=== PATIENT | female | born 1950 | race Caucasian/White ===

== ENCOUNTER → 2016-08-04 | Outpatient (CLI) | payer OTHER ==
--- NOTE | 2016-08-05 13:56 | MM ---
Reason for exam: screening (asymptomatic). Last mammogram was performed 1 year ago. History: Family history of breast cancer in maternal aunt. Physical Findings: A clinical breast exam by your physician is recommended on an annual basis and results should be correlated with mammographic findings. MG 3D Screening Mammo W/Cad Bilateral CC and MLO view(s) were taken. Prior study comparison: August 01, 2015, bilateral MG 3d screening mammo w/cad. July 24, 2014, bilateral MG screening mammo w CAD. The breast tissue is heterogeneously dense. This may lower the sensitivity of mammography. No significant changes when compared with prior studies. ASSESSMENT: Benign, BI-RAD 2 RECOMMENDATION: Routine screening mammogram of both breasts in 1 year.
== END | disposition home or self-care (01) ==
LOC: RADMAMWWP 09:49
PROVIDERS: ATTEND Family Medicine
DX: Z12.31 Encounter for screening mammogram for malignant neoplasm of breast (principal)
CPT/HCPCS: 77063; G0202

== ENCOUNTER → 2017-07-19 | Outpatient (CLI) | payer OTHER, MEDICARE ==
--- NOTE | 2017-07-19 11:42 | CTL ---
EXAMINATION TYPE: CT Low Dose Lung DATE OF EXAM ORDERED: 07/19/2017 HISTORY: Long-term tobacco use. Lung cancer screening CT DLP: [address] CTDI: 3.1 mGy Automated exposure control for dose reduction was used. SCREENING VISIT: Initial study COMPARISON: None TECHNIQUE: Low dose computed tomography scan was performed through the chest at 1 mm thick sections a nd reconstructed images in the coronal plane at [address] DIAGNOSTIC QUALITY: Satisfactory FINDINGS: LUNG NODULES: None. LUNGS: COPD: Severity: Mild Fibrosis: Severity: Minimal Lymph nodes: No suspicious greater than 1 cm. Other findings: None BILATERAL PLEURAL SPACE: Effusion: None Calcification: None Thickening: None Pneumothorax: None HEART: Heart Size: Normal Coronary calcification: None Pericardial effusion: None OTHER FINDINGS: Upper abdomen: Small hiatal hernia is seen. Cholecystectomy clips are noted. Bony thorax: There is fairly moderate multilevel anterior and lateral spurring. Supraclavicular region: No suspicious findings. Other: Mild calcified plaque of aorta. IMPRESSION: No suspicious nodules seen. FOLLOW UP CT CHEST RECOMMENDATION: Annual low-dose lung screening CT CT LUNG RAD: Lung-Rad 1 Negative
== END ==
LOC: RADCTMAIN 10:48
PROVIDERS: ATTEND Family Medicine
DX: Z12.2 Encounter for screening for malignant neoplasm of respiratory organs (principal); Z87.891 Personal history of nicotine dependence

== ENCOUNTER → 2017-09-28 | Outpatient (CLI) | payer MEDICARE, OTHER ==
--- NOTE | 2017-09-28 13:26 | MM ---
Reason for exam: screening (asymptomatic). Last mammogram was performed 1 year and 2 months ago. History: Family history of breast cancer in maternal aunt. Physical Findings: A clinical breast exam by your physician is recommended on an annual basis and results should be correlated with mammographic findings. MG 3D Screening Mammo W/Cad Bilateral CC and MLO view(s) were taken. Prior study comparison: August 04, 2016, bilateral MG 3d screening mammo w/cad. August 01, 2015, bilateral MG 3d screening mammo w/cad. The breast tissue is heterogeneously dense. This may lower the sensitivity of mammography. There is chronic nodularity in the left breast. There is no discrete abnormality. ASSESSMENT: Negative, BI-RAD 1 RECOMMENDATION: Routine screening mammogram of both breasts in 1 year.
== END | disposition home or self-care (01) ==
LOC: RADMAMWWP 07:13
PROVIDERS: ATTEND Family Medicine
DX: Z12.31 Encounter for screening mammogram for malignant neoplasm of breast (principal)
CPT/HCPCS: 77063; 77067

== ENCOUNTER → 2018-11-16 | Outpatient (CLI) | payer MEDICARE, OTHER ==
--- NOTE | 2018-11-17 14:40 | MM ---
Reason for exam: screening (asymptomatic). Last mammogram was performed 1 year and 2 months ago. History: Family history of breast cancer in maternal aunt. Physical Findings: A clinical breast exam by your physician is recommended on an annual basis and results should be correlated with mammographic findings. MG 3D Screening Mammo W/Cad Bilateral CC and MLO view(s) were taken. Prior study comparison: September 28, 2017, bilateral MG 3d screening mammo w/cad. August 04, 2016, bilateral MG 3d screening mammo w/cad. The breast tissue is heterogeneously dense. This may lower the sensitivity of mammography. There is no discrete abnormality. ASSESSMENT: Negative, BI-RAD 1 RECOMMENDATION: Routine screening mammogram of both breasts in 1 year.
== END | disposition home or self-care (01) ==
LOC: RADMAMWWP 10:47
PROVIDERS: ATTEND Family Medicine
DX: Z12.31 Encounter for screening mammogram for malignant neoplasm of breast (principal)
CPT/HCPCS: 77063; 77067

== ENCOUNTER 2019-03-10 20:13 | Emergency (ER) | payer MEDICARE ==
[2019-03-10 20:18] VITALS: TEMP 97.4
[2019-03-10] MEDS ORDERED: METOCLOPRAMIDE 5 MG/ML 2 ML VIAL IVP STA (21:27)
[2019-03-10] MEDS ORDERED: diphenhydrAMINE 50 MG/ML 1 ML VIAL IVP STA (21:27)
[2019-03-10] MEDS ORDERED: KETOROLAC 30 MG/ML 1 ML VIAL IVP STA (21:27)
[2019-03-10] MEDS ORDERED: MORPHINE SULFATE 4 MG/ML SYRINGE IV STA (21:37)
[2019-03-10] MEDS ORDERED: MORPHINE SULFATE 4 MG/ML SYRINGE IM STA (21:48)
[2019-03-10] MEDS ORDERED: METOCLOPRAMIDE 5 MG/ML 2 ML VIAL IM STA (21:49)
[2019-03-10] MEDS ORDERED: diphenhydrAMINE 50 MG CAP PO STA (21:49)
[2019-03-10 22:46] VITALS: BP 130/68; PULSE 68; RESP 18
[2019-03-10] MEDS ORDERED: ACETAMINOPHEN TAB 325 MG TAB PO STA (22:47)
[2019-03-10] MEDS ORDERED: ONDANSETRON ODT 4 MG TAB PO STA (22:47)
--- NOTE | 2019-03-10 22:55 | ED ---
General Adult HPI - General Chief complaint: Eye Problems Stated complaint: Blurred Vision,Floaters Time Seen by Provider: 03/10/19 20:26 Source: patient, RN notes reviewed, old records reviewed Mode of arrival: ambulatory Limitations: no limitations - History of Present Illness Initial comments: 68-year-old female patient past history significant for hysterectomy, hyperlipidemia, tension headache disorder presents to ED for chief complaint of visual complaints in her right eye. Patient reports that yesterday she began to see some scattered flashing lights around the periphery of her right eye. This came and went. Patient reports that earlier today she began experiencing some floaters in her right eye. Patient then reports that approximately 2 hours prior to presenting to the emergency department she has sensation as if there were small specks of pepper going down her vision. Patient was seen today by her neurologist and received Botox injections for tension headache. Patient denies any change in vision or pain and I. Patient does report that she has a mild frontal lobe headache. Denies any other complaints. Systemic: Pt denies fatigue, fever/chills, rash. Pt denies weakness, night sweats, weight loss. Neuro: Pt denies syncope or pre-syncope. HEENT: Pt denies ocular discharge or irritation, otalgia, rhinorrhea, pharyngitis or notable lymphadenopathy. Cardiopulmonary: Pt denies chest pain, SOB, heart palpitations, dyspnea on exertion. Abdominal/GI: Pt denies abdominal pain, n/v/d. : Pt denies dysuria, burning w/ urination, frequency/urgency. Denies new onset urinary or bowel incontinence. MSK: Pt denies myalgia, loss of strength or function in extremities. Neuro: Pt denies new onset weakness, paresthesias. - Related Data Home Medications Medication Instructions Recorded Confirmed Cholecalciferol [Vitamin D3] 2,000 unit PO Q2D 09/07/14 09/11/14 Cholecalciferol [Vitamin D3] 4,000 unit PO Q2D 09/07/14 09/11/14 Citalopram Hydrobromide 40 mg PO PC-SUPPER 09/07/14 09/11/14 [Citalopram HBr] Levothyroxine Sodium [Synthroid] 100 mcg PO DAILY 09/07/14 09/11/14 Pravastatin Sodium 20 mg PO HS 09/07/14 09/11/14 Vitamin B Complex 1 each PO DAILY 09/07/14 09/11/14 Zolpidem Tartrate 10 mg PO HS PRN 09/07/14 09/11/14 Allergies Allergy/AdvReac Type Severity Reaction Status Date / Time Penicillins Allergy Unknown, Verified 09/07/14 14:10 POS ON ALLERGY TEST shrimp Allergy Rash/Hives Verified 03/10/19 20:18 Review of Systems ROS Statement: Those systems with pertinent positive or pertinent negative responses have been documented in the HPI. ROS Other: All systems not noted in ROS Statement are negative. Past Medical History Past Medical History: Hyperlipidemia, Thyroid Disorder History of Any Multi-Drug Resistant Organisms: None Reported Past Surgical History: Cholecystectomy, Hysterectomy, Orthopedic Surgery Additional Past Surgical History / Comment(s): PARTIAL THYROIDECTOMY. LT ROTATOR CUFF REPAIRED. Past Anesthesia/Blood Transfusion Reactions: Motion Sickness Smoking Status: Former smoker - Past Family History Mother Sister(s) Family Medical History: Cancer General Exam - General Exam Comments Initial Comments: Constitutional: NAD, AOX3, Pt has pleasant affect. HEENT: NC/AT, trachea midline, neck supple, no lymphadenopathy. Posterior pharynx non erythematous, without exudates. External ears appear normal, without discharge. Mucous membranes moist. Eyes PERRLA, EOM intact. There is no scleral icterus. No pallor noted. Intraocular pressure average of 15 bilaterally. Slit lamp exam did not display any hemorrhage or pathology. Cardiopulmonary: RRR, no murmurs, rubs or gallops, no JVD noted. Lungs CTAB in anterior and posterior grigsby. No peripheral edema. Abdominal exam: Abdomen soft and non-distended. Abdomen non-tender to palpation in all 4 quadrants. Bowel sounds active in LLQ. No hepatosplenomegaly. No ecchymosis Neuro: CN II-XII intact. No nuchal rigidity. No raccon eyes, no glynn sign, no hemotympanum. No cervical spinal tenderness. MSK: No posterior calf tenderness bilaterally, homans sign negative bilaterally. Posterior tibialis and radial pulse +2 bilaterally. Sensation intact in upper and lower extremities. Full active ROM in upper and lower extremities, 5/5 stregnth. Limitations: no limitations Course Vital Signs 03/10/19 03/10/19 20:15 22:45 Temperature 97.4 F L Pulse Rate 103 H 68 Respiratory 20 18 Rate Blood Pressure 142/84 130/68 O2 Sat by Pulse 98 97 Oximetry Medical Decision Making - Medical Decision Making 68-year-old female patient past history significant for hysterectomy, hyperlipidemia, tension headache disorder presents to ED for chief complaint of visual complaints in her right eye. Patient reports that yesterday she began to see some scattered flashing lights around the periphery of her right eye. This came and went. Patient reports that earlier today she began experiencing some floaters in her right eye. Patient then reports that approximately 2 hours prior to presenting to the emergency department she has sensation as if there were small specks of pepper going down her vision. Patient was seen today by her neurologist and received Botox injections for tension headache. Patient denies any change in vision or pain and I. Patient does report that she has a m ild frontal lobe headache. Denies any other complaints. Pt VSS, afebrile. Physical exam displayed: Eyes PERRLA, EOM intact. Intraocular pressure average of 15 bilaterally. Slit lamp exam did not display any hemorrhage or pathology. Ultrasound performed by Dr. Epstein did not display any retinal detachment. Patient was administered headache medications, reports the headache is much improved. Continues to not have any eye pain or any decreased visual acuity. Attempted to reach patient's machine i coremaker Dr. Colon were unsuccessful. Patient requesting discharge. Patient discharged will follow up with her previously established machine i coremaker tomorrow, if unable to follow-up patient given information for our staff machine i coremaker. Patient will return to ER if condition worsens. Case discussed with Dr. Estrada. Disposition Clinical Impression: Floaters, Headache Disposition: HOME SELF-CARE Condition: Stable Instructions (If sedation given, give patient instructions): Visual Floaters (ED) Additional Instructions: Follow-up with machine i coremaker tomorrow. Initially try to follow up with Previously established machine i coremaker Dr. Colon. If unable to follow up with him follow-up with Dr. Caal. Return to ER if condition worsens in any way. Is patient prescribed a controlled substance at d/c from ED?: No Referrals: Austen Garcia DO [Primary Care Provider] - 1-2 days Ana Caal MD [STAFF PHYSICIAN] - 1-2 days
== END 2019-03-10 23:00 | disposition home or self-care (01) ==
LOC: EC 20:13
DX: G44.209 Tension-type headache, unspecified, not intractable (principal); H43.391 Other vitreous opacities, right eye; E78.5 Hyperlipidemia, unspecified; E07.9 Disorder of thyroid, unspecified; Z79.899 Other long term (current) drug therapy; Z88.0 Allergy status to penicillin; Z91.013 Allergy to seafood; Z87.891 Personal history of nicotine dependence; Z90.89 Acquired absence of other organs
CPT/HCPCS: 99284; 96372 ×2; J2270; J2765

== ENCOUNTER → 2020-02-28 | Outpatient (CLI) | payer MEDICARE ==
--- NOTE | 2020-02-29 16:20 | BD ---
EXAMINATION TYPE: Axial Bone Density DATE OF EXAM: 02/28/2020 COMPARISON: NONE CLINICAL HISTORY: Height: 5 FT 7 IN Weight: 190 FRAX RISK QUESTIONS: Alcohol (3 or more units per day): NO Family History (Parent hip fracture): NO Glucocorticoids (More than 3mos): NO (Ex: prednisone, prednisolone, methylprednisolone, dexamethasone, and hydrocortisone). History of Fracture in Adulthood: YES Secondary Osteoporosis: 1. Type 1 Diabetes: NO 2. Hyperthyroidism: NO 3. Menopause before 45: UNSURE PART AGE 34 NO REAL SYMPTOMS 4. Malnutrition: NO 5. Chronic liver disease: NO Rheumatoid Arthritis: NO Current Tobacco Use: NO RISK FACTORS HISTORY OF: Family History of Osteoporosis: YES Active: YES Diet low in dairy products/other sources of calcium: NO Postmenopausal woman: PART AGE 34 Take estrogen and/or progesterone medications: NONE Lost more than 2 inches in height since high school: NO MEDICATIONS: Thyroid Medications: YES Which medication: LEVOTHYROXINE How Lon PLUS YEARS Additional Medications: LEVOTHYROXINE, PREVASTATIN, STRESS MEDS, PROZAC, Additional History: EXAM MEASUREMENTS: Bone mineral densitometry was performed using the KOEZY System. Bone mineral density as measured about the Lumbar spine is: ----- L1-L4(G/cm2): 1.200 T Score Values are as follows: ----- L2: 0.5 ----- L3: 0.3 ----- L4: 0.3 ----- L1-L4: 0.2 Bone mineral density has: INCREASED 1.1 % since study of: 2004 Bone mineral density about the R hip (g/cm2): 0.785 Bone mineral density about the L hip (g/cm2): 0.835 T Score values are as follows: -----R Neck: -1.8 -----L Neck: -1.5 -----R Total: -0.7 -----L Total: -0.6 Bone mineral density has: DECREASED -8.2 % since study of: 2004 IMPRESSION: Osteopenia (T Score between -2.5 and -1). There is slightly increased risk of fracture and the patient may be considered for treatment. Re-Screen 2-5 years. NOTE: T-SCORE=SD OF THE YOUNG ADULT MEAN.
--- NOTE | 2020-03-04 11:02 | MM ---
Reason for exam: screening (asymptomatic). Last mammogram was performed 1 year and 3 months ago. History: Family history of breast cancer in maternal aunt. Physical Findings: A clinical breast exam by your physician is recommended on an annual basis and results should be correlated with mammographic findings. MG 3D Screening Mammo W/Cad Bilateral CC and MLO view(s) were taken. XCCL view(s) were taken of the left breast. Prior study comparison: November 16, 2018, bilateral MG 3d screening mammo w/cad. September 28, 2017, bilateral MG 3d screening mammo w/cad. The breast tissue is heterogeneously dense. This may lower the sensitivity of mammography. No significant changes when compared with prior studies. ASSESSMENT: Benign, BI-RAD 2 RECOMMENDATION: Routine screening mammogram of both breasts in 1 year.
== END | disposition home or self-care (01) ==
LOC: RADMAMWWP 15:13
PROVIDERS: ATTEND Family Medicine
DX: Z12.31 Encounter for screening mammogram for malignant neoplasm of breast (principal); M85.80 Other specified disorders of bone density and structure, unspecified site
CPT/HCPCS: 77063; 77067; 77080

== ENCOUNTER 2021-12-11 13:07 | Inpatient (IN) | payer MEDICARE ==
[2021-12-11] MEDS ORDERED: ONDANSETRON 4 MG/2 ML VIAL IVP STA ×2 (14:16→18:51)
[2021-12-11] MEDS ORDERED: SODIUM CHLORIDE 0.9% 1,000 ML IV STA (14:16)
[2021-12-11] MEDS ORDERED: KETOROLAC 15 MG/ML 1 ML VIAL IVP STA (14:16)
[2021-12-11 14:46] LABS: Basophils % (A) 0 %; Eosinophils # (A) 0.2 k/uL (0-0.7); Eosinophils % (A) 2 %; HCT 40.5 % (34.0-46.0); HGB 13.3 gm/dL (11.4-16.0); Lymphocytes # (A) 1.6 k/uL (1.0-4.8); Lymphocytes % (A) 17 %; MCH 29.9 pg (25.0-35.0); MCV 90.7 fL (80.0-100.0); Mean Platelet Volume 8.2; Monocytes # (A) 0.7 k/uL (0-1.0); Monocytes % (A) 8 %; Neutrophils # (A) 6.5 k/uL (1.3-7.7); Neutrophils % (A) 71 %; Platelet Count 347 k/uL (150-450); RBC 4.46 m/uL (3.80-5.40); RDW 13.4 % (11.5-15.5); WBC 9.1 k/uL (3.8-10.6)
--- NOTE | 2021-12-11 15:07 | ED ---
Abdominal Pain HPI - General Chief Complaint: Abdominal Pain Stated Complaint: Constipation Time Seen by Provider: 12/11/21 14:04 Source: patient, RN notes reviewed Mode of arrival: ambulatory Limitations: no limitations - History of Present Illness Initial Comments: This is a 71-year-old female who presents to the emergency department for constipation. States that her last bowel movement was 9 weeks ago. She has associated abdominal pain and nausea. States that she feels very bloated and is now experiencing low back pain and feels like she can't take it anymore. She is a patient of Dr. Linder, clin asst, and states that she has been taking a prescription for constipation that she was provided. States that this is a powder she mixes with water but is not sure what it is called. She's being treated with this for IBS. States that she's never been constipated this long, it typically only lasts a week. Denies any fevers, chills, sore throat, cough, dyspnea, chest pain, palpitations, vomiting, diarrhea, or headaches. MD Complaint: abdominal pain Onset/Timin -: week(s) Location: diffuse Associated Symptoms: nausea, constipation - Related Data Home Medications Medication Instructions Recorded Confirmed Levothyroxine Sodium [Synthroid] 100 mcg PO DAILY 09/07/14 12/11/21 Vitamin B Complex 1 cap PO DAILY 09/07/14 12/11/21 Spironolactone [Aldactone] 100 mg PO DAILY 12/11/21 12/11/21 Venlafaxine HCl ER [Effexor Xr] 150 mg PO AC-LUNCH 12/11/21 12/11/21 Vitamin D3(Unknown) 1 tab PO DAILY 12/11/21 12/11/21 Allergies Allergy/AdvReac Type Severity Reaction Status Date / Time Penicillins Allergy Unknown, + Verified 12/11/21 16:16 allergy testing as a child shrimp Allergy Rash/Hives Verified 12/11/21 16:16 around mouth Review of Systems ROS Statement: Those systems with pertinent positive or pertinent negative responses have been documented in the HPI. ROS Other: All systems not noted in ROS Statement are negative. Past Medical History Past Medical History: Hyperlipidemia, Thyroid Disorder History of Any Multi-Drug Resistant Organisms: None Reported Past Surgical History: Cholecystectomy, Hysterectomy, Orthopedic Surgery Additional Past Surgical History / Comment(s): PARTIAL THYROIDECTOMY. LT ROTATOR CUFF REPAIRED. Past Anesthesia/Blood Transfusion Reactions: Motion Sickness Smoking Status: Never smoker Past Alcohol Use History: None Reported Past Drug Use History: None Reported - Past Family History Mother Sister(s) Family Medical History: Cancer General Exam Limitations: no limitations General appearance: alert, in no apparent distress Head exam: Present: atraumatic, normocephalic, normal inspection Respiratory exam: Present: normal lung sounds bilaterally. Absent: respiratory distress, wheezes, rales, rhonchi, stridor Cardiovascular Exam: Present: regular rate, normal rhythm, normal heart sounds. Absent: systolic murmur, diastolic murmur, rubs, gallop, clicks GI/Abdominal exam: Present: tenderness (Diffuse), hypoactive bowel sounds, other (Firmness throughout the abdomen) Neurological exam: Present: alert, oriented X3, CN II-XII intact Psychiatric exam: Present: normal affect, normal mood Skin exam: Present: warm, dry, intact, normal color. Absent: rash Course Vital Signs 12/11/21 12/11/21 13:36 16:36 Temperature 97.0 F L Pulse Rate 100 94 Respiratory 20 18 Rate Blood Pressure 135/81 131/75 O2 Sat by Pulse 96 97 Oximetry Medical Decision Making - Medical Decision Making This is a 71-year-old female who presents to the emergency department for constipation. Patient has a critical calcium level of 14.7. CT scan of the ab domen and pelvis was obtained, revealing a 15.8 cm conglomerate mass in the retroperitoneal space encasing the aorta. This also displaces the IVC and other retroperitoneal vessels. Patient given 400 mg of calcitonin. The concerns at this point are that the hypercalcemia is related to hypercalcemia of malignancy or sarcoidosis with relation to the conglomerate mass. PTH is pending and her thyroid studies are otherwise within normal limits. Patient will be admitted to medicine for management of the hypercalcemia and additional testing of the conglomerate mass. Nephrology consulted for hypercalcemia per the admitting team's request. Interventional radiology and hematology/oncology consulted per the recommendation of ED attending. Denies any fevers, chills, sore throat, cough, dyspnea, chest pain, palpitations, abdominal pain, nausea, vomiting, diarrhea, back pain, or headac hes. - Lab Data Result diagrams: 12/11/21 14:33 12/11/21 14:33 Lab Results 12/11/21 12/11/21 12/11/21 Range/Units 14:33 14:33 14:40 WBC 9.1 (3.8-10.6) k/uL RBC 4.46 (3.80-5.40) m/uL Hgb 13.3 (11.4-16.0) gm/dL Hct 40.5 (34.0-46.0) % MCV 90.7 (80.0-100.0) fL MCH 29.9 (25.0-35.0) pg MCHC 33.0 (31.0-37.0) g/dL RDW 13.4 (11.5-15.5) % Plt Count 347 (150-450) k/uL MPV 8.2 Neutrophils % 71 % Lymphocytes % 17 % Monocytes % 8 % Eosinophils % 2 % Basophils % 0 % Neutrophils # 6.5 (1.3-7.7) k/uL Lymphocytes # 1.6 (1.0-4.8) k/uL Monocytes # 0.7 (0-1.0) k/uL Eosinophils # 0.2 (0-0.7) k/uL Basophils # 0.0 (0-0.2) k/uL Sodium 138 (137-145) mmol/L Potassium 4.7 (3.5-5.1) mmol/L Chloride 98 (98-107) mmol/L Carbon Dioxide 29 (22-30) mmol/L Anion Gap 11 mmol/L BUN 32 H (7-17) mg/dL Creatinine 1.68 H (0.52-1.04) mg/dL Est GFR (CKD-EPI)AfAm 35 (>60 ml/min/1.73 sqM) Est GFR (CKD-EPI)NonAf 31 (>60 ml/min/1.73 sqM) Glucose 89 (74-99) mg/dL Calcium 14.7 H* (8.4-10.2) mg/dL Ionized Calcium Arielle (4.5-5.3) mg/dL Phosphorus (2.5-4.5) mg/dL Magnesium (1.6-2.3) mg/dL Total Bilirubin 1.0 (0.2-1.3) mg/dL AST 41 H (14-36) U/L ALT 63 H (4-34) U/L Alkaline Phosphatase 120 (38-126) U/L Total Protein 6.9 (6.3-8.2) g/dL Albumin 4.5 (3.5-5.0) g/dL Amylase 71 (30-110) U/L Lipase 233 (23-300) U/L TSH 1.080 (0.465-4.680) mIU/L Urine Color Yellow Urine Appearance Cloudy H (Clear) Urine pH 5.0 (5.0-8.0) Ur Specific [place] 1.018 (1.001-1.035) Urine Protein Trace H (Negative) Urine Glucose (UA) Negative (Negative) Urine Ketones Trace H (Negative) Urine Blood Negative (Negative) Urine Nitrite Negative (Negative) Urine Bilirubin Negative (Negative) Urine Urobilinogen <2.0 (<2.0) mg/dL Ur Leukocyte Esterase Negative (Negative) Urine RBC 2 (0-5) /hpf Urine WBC 5 (0-5) /hpf Ur Squamous Epith Cells 1 (0-4) /hpf Calcium Oxalate Crystal Rare H (None) /hpf Urine Bacteria Rare H (None) /hpf Hyaline Casts 1 (0-2) /lpf Urine Mucus Rare H (None) /hpf 12/11/21 Range/Units 15:53 WBC (3.8-10.6) k/uL RBC (3.80-5.40) m/uL Hgb (11.4-16.0) gm/dL Hct (34.0-46.0) % MCV (80.0-100.0) fL MCH (25.0-35.0) pg MCHC (31.0-37.0) g/dL RDW (11.5-15.5) % Plt Count (150-450) k/uL MPV Neutrophils % % Lymphocytes % % Monocytes % % Eosinophils % % Basophils % % Neutrophils # (1.3-7.7) k/uL Lymphocytes # (1.0-4.8) k/uL Monocytes # (0-1.0) k/uL Eosinophils # (0-0.7) k/uL Basophils # (0-0.2) k/uL Sodium (137-145) mmol/L Potassium (3.5-5.1) mmol/L Chloride (98-107) mmol/L Carbon Dioxide (22-30) mmol/L Anion Gap mmol/L BUN (7-17) mg/dL Creatinine (0.52-1.04) mg/dL Est GFR (CKD-EPI)AfAm (>60 ml/min/1.73 sqM) Est GFR (CKD-EPI)NonAf (>60 ml/min/1.73 sqM) Glucose (74-99) mg/dL Calcium (8.4-10.2) mg/dL Ionized Calcium Arielle 7.9 H* (4.5-5.3) mg/dL Phosphorus 4.1 (2.5-4.5) mg/dL Magnesium 1.8 (1.6-2.3) mg/dL Total Bilirubin (0.2-1.3) mg/dL AST (14-36) U/L ALT (4-34) U/L Alkaline Phosphatase (38-126) U/L Total Protein (6.3-8.2) g/dL Albumin (3.5-5.0) g/dL Amylase (30-110) U/L Lipase (23-300) U/L TSH (0.465-4.680) mIU/L Urine Color Urine Appearance (Clear) Urine pH (5.0-8.0) Ur Specific [place] (1.001-1.035) Urine Protein (Negative) Urine Glucose (UA) (Negative) Urine Ketones (Negative) Urine Blood (Negative) Urine Nitrite (Negative) Urine Bilirubin (Negative) Urine Urobilinogen (<2.0) mg/dL Ur Leukocyte Esterase (Negative) Urine RBC (0-5) /hpf Urine WBC (0-5) /hpf Ur Squamous Epith Cells (0-4) /hpf Calcium Oxalate Crystal (None) /hpf Urine Bacteria (None) /hpf Hyaline Casts (0-2) /lpf Urine Mucus (None) /hpf - EKG Data EKG Comments: Sinus rhythm. Ventricular rate 94 bpm, NM interval 151 ms, QRS duration 87 ms, QTC 375 ms. - Radiology Data Radiology results: report reviewed, image reviewed Disposition Clinical Impression: Constipation, Hypercalcemia, Retroperitoneal mass Disposition: ADMITTED IP TO THIS HOSP
[2021-12-11 15:09] LABS: ALT 63 U/L (4-34); AST 41 U/L (14-36); African American GFR (CKD) 35 (>60 ml/min/1.73 sqM); Albumin 4.5 g/dL (3.5-5.0); Alkaline Phosphatase 120 U/L (38-126); Amylase 71 U/L (30-110); Anion Gap 11 mmol/L; Blood Urea Nitrogen 32 mg/dL (7-17); Carbon Dioxide 29 mmol/L (22-30); Chloride 98 mmol/L (98-107); Glucose 89 mg/dL (74-99); Lipase 233 U/L (23-300); Non-African American GFR(CKD) 31 (>60 ml/min/1.73 sqM); Potassium 4.7 mmol/L (3.5-5.1); Sodium 138 mmol/L (137-145); Total Protein 6.9 g/dL (6.3-8.2)
[2021-12-11 15:21] LABS: Appearance,Urine Cloudy (Clear); Bacteria,Urine Rare /hpf; Bilirubin,Urine Negative (Negative); Blood,Urine Negative (Negative); Calcium Oxalate Crystals,Urine Rare /hpf; Color,Urine Yellow; Glucose,Urine (UA) Negative (Negative); Hyaline Casts,Urine 1 /lpf (0-2); Ketones,Urine Trace (Negative); Leukocyte Esterase,Urine Negative (Negative); Mucus,Urine Rare /hpf; Nitrite,Urine Negative (Negative); Protein,Urine Trace (Negative); RBC,Urine 2 /hpf (0-5); Specific Gravity,Urine 1.018 (1.001-1.035); Squamous Epithelial Cell,Urine 1 /hpf (0-4); Urobilinogen,Urine <2.0 mg/dL (<2.0); WBC,Urine 5 /hpf (0-5)
[2021-12-11 15:21] LABS: Calcium 14.7 mg/dL (8.4-10.2)
[2021-12-11] MEDS ORDERED: CALCITONIN INJ 200 UNIT/ML (MDV) VIAL IM ONE (16:00)
[2021-12-11 16:14] LABS: Magnesium 1.8 mg/dL (1.6-2.3); Phosphorus 4.1 mg/dL (2.5-4.5)
--- NOTE | 2021-12-11 16:21 | CT ---
EXAMINATION TYPE: CT abdomen pelvis wo con CT DLP: 562.7 mGycm, Automated exposure control for dose reduction was used. DATE OF EXAM: 12/11/2021 4:04 PM COMPARISON: CT chest 07/19/2017. CLINICAL INDICATION:Female, 71 years old with history of abdominal pain, bloating; Abdominal pain, bl oating, constipation. TECHNIQUE: Axial CT of the abdomen and pelvis. Sagittal and coronal reformats were created on a [employer] workstation. Contrast used: None Oral contrast used: without Oral Contrast FINDINGS: LOWER CHEST: Unremarkable ABDOMEN LIVER: Unremarkable GALLBLADDER AND BILE DUCTS: The gallbladder is surgically absent. PANCREAS: Unremarkable. SPLEEN: Unremarkable. ADRENAL GLANDS: Unremarkable. KIDNEYS AND URETERS: No evidence of hydronephrosis or renal calculus. Suspected left upper pole renal cyst. PELVIS BLADDER: Unremarkable REPRODUCTIVE: Unremarkable. ABDOMEN & PELVIS STOMACH AND BOWEL: No evidence of bowel obstruction. PERITONEUM: A retroperitoneal conglomerate mass extending at the aortic hiatus into the abdomen and r etroperitoneum measuring 15.8 x 9.4 x 15.5 cm this encases the aorta and displaces anteriorly. Additi onally this also displaces the IVC and other retroperitoneal vessels including the renal vessels bila terally. Extends up into the intrathoracic mediastinum adjacent to the aorta. VASCULATURE: No evidence of aortic aneurysm. Scattered atherosclerosis of the arterial vasculature. MUSCULOSKELETAL: No acute osseous abnormalities, multilevel disc degeneration changes seen throughout the spine. Multilevel disc bulging most proximal at L2-L3. LYMPH NODES: Large conglomerate mass as described above. 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 Cor relate for lymphoma versus other etiologies. Tissue sampling recommended.
[2021-12-11] MEDS ORDERED: ACETAMINOPHEN TAB 325 MG TAB PO PRN (16:53)
[2021-12-11] MEDS ORDERED: NALOXONE 0.4 MG/ML 1 ML VIAL IV PRN (16:53)
[2021-12-11 17:18] LABS: Ionized Calcium 7.9 mg/dL (4.5-5.3)
[2021-12-11] MEDS: ONDANSETRON 4 MG/2 ML VIAL IVP PRN (22:02)
[2021-12-12] MEDS: LEVOTHYROXINE 100 MCG TAB PO SCH (05:55)
[2021-12-12] MEDS ORDERED: SODIUM CHLORIDE 0.9% 250 ML with PAMIDRONATE 60 MG IV ONE ×4 (08:26→10:00)
[2021-12-12] MEDS ORDERED: NON FORMULARY DRUG (Vitamin B Complex [Vitamin B Complex] 1 EACH Capsule) PO SCH (09:00)
[2021-12-12] MEDS: SPIRONOLACTONE 25 MG TAB PO SCH (09:35)
[2021-12-12] MEDS: SODIUM CHLORIDE 0.9% 1,000 ML IV SCH ×3 (09:36→21:53)
[2021-12-12] MEDS: HYDROcodone/APAP 5-325MG 1 EACH TAB PO PRN ×2 (10:10→20:02)
[2021-12-12] MEDS: ONDANSETRON 4 MG/2 ML VIAL IVP PRN ×2 (10:11→20:02)
[2021-12-12 10:26] LABS: Basophils % (A) 0 %; Eosinophils # (A) 0.1 k/uL (0-0.7); Eosinophils % (A) 2 %; HCT 37.3 % (34.0-46.0); Lymphocytes # (A) 1.2 k/uL (1.0-4.8); Lymphocytes % (A) 14 %; MCHC 32.2 g/dL (31.0-37.0); Mean Platelet Volume 8.5; Monocytes # (A) 0.6 k/uL (0-1.0); Monocytes % (A) 7 %; Neutrophils # (A) 6.3 k/uL (1.3-7.7); Neutrophils % (A) 75 %; Platelet Count 304 k/uL (150-450); RBC 4.01 m/uL (3.80-5.40); RDW 13.4 % (11.5-15.5); WBC 8.4 k/uL (3.8-10.6)
[2021-12-12 10:28] LABS: Prothrombin Time 10.8 sec (9.0-12.0)
[2021-12-12 10:33] LABS: ALT 56 U/L (4-34); AST 38 U/L (14-36); African American GFR (CKD) 34 (>60 ml/min/1.73 sqM); Albumin 3.9 g/dL (3.5-5.0); Albumin/Globulin Ratio 1.6; Alkaline Phosphatase 111 U/L (38-126); Anion Gap 13 mmol/L; Blood Urea Nitrogen 35 mg/dL (7-17); Calcium 12.1 mg/dL (8.4-10.2); Carbon Dioxide 26 mmol/L (22-30); Chloride 100 mmol/L (98-107); Globulin 2.4 g/dL; Glucose 87 mg/dL (74-99); LDH 368 U/L (313-618); Non-African American GFR(CKD) 29 (>60 ml/min/1.73 sqM); Potassium 4.4 mmol/L (3.5-5.1); Sodium 139 mmol/L (137-145); Total Bilirubin 0.9 mg/dL (0.2-1.3); Total Protein 6.3 g/dL (6.3-8.2)
[2021-12-12] MEDS ORDERED: diphenhydrAMINE 50 MG/ML 1 ML VIAL IVP STA (10:34)
[2021-12-12 11:22] LABS: Erythrocyte Sedimentation Rate 20 mm/hr (0-20)
--- NOTE | 2021-12-12 11:42 | P.PCN ---
Date of Procedure: 12/12/21 Preoperative Diagnosis: retroperitoneal mass Postoperative Diagnosis: same Procedure(s) Performed: core bx Anesthesia: local Estimated Blood Loss (ml): 5 Pathology: other (to histo tech) Condition: stable Disposition: no change Operative Findings: 2 x 18 ga core through 17 ga guide
--- NOTE | 2021-12-12 12:09 | CT ---
EXAMINATION TYPE: CT biopsy abdomen percutaneous DATE OF EXAM: 12/12/2021 HISTORY: Retroperitoneal mass COMPARISON: CT 12/11/2021 Maximal barrier technique was utilized, hand hygiene obtained with soap and water. The skin overlyin g a suitable path to the retroperitoneal mass was localized using CT and the overlying skin was prepp ed and draped. Lidocaine used for local anesthesia. A skin alan made with a scalpel. Using CT guid ance, access was gained to the lesion with a 18-gauge core needle through a 17-gauge guide. Core spe cimen submitted to cytology. 2 pass(es) performed in all. Following the procedure no immediate comp lications. The patient is discharged in stable condition. Hemostasis achieved. IMPRESSION: SUCCESSFUL CT GUIDED CORE BIOPSY of retroperitoneal mass. PATHOLOGY PENDING. THIS PROCEDURE WAS PER FORMED BY THE UNDERSIGNED.
--- NOTE | 2021-12-12 13:13 | P.NPCON ---
History of Present Illness - History of Present Illness Patient is a 71-year-old female who is admitted to the hospital with complaints of abdominal pain. She has had chronic constipation. Patient follows with Dr. Gómez from GI. Patient denies any previous history of hypercalcemia. She was noted to have a serum calcium of 14.7. No history of excessive intake of Tums Abdominal CT shows large mass in the retroperitoneum measuring about 15.8 cm. A biopsy has been ordered. Review of Systems As per HPI Past Medical History Past Medical History: Hyperlipidemia, Thyroid Disorder History of Any Multi-Drug Resistant Organisms: None Reported Past Surgical History: Cholecystectomy, Hysterectomy, Orthopedic Surgery Additional Past Surgical History / Comment(s): PARTIAL THYROIDECTOMY. LT ROTATOR CUFF REPAIRED. Past Anesthesia/Blood Transfusion Reactions: Motion Sickness Smoking Status: Never smoker Past Alcohol Use History: None Reported Past Drug Use History: None Reported - Past Family History Mother Sister(s) Family Medical History: Cancer Medications and Allergies Home Medications Medication Instructions Recorded Confirmed Type Levothyroxine Sodium [Synthroid] 100 mcg PO DAILY 09/07/14 12/11/21 History Vitamin B Complex 1 cap PO DAILY 09/07/14 12/11/21 History Spironolactone [Aldactone] 100 mg PO DAILY 12/11/21 12/11/21 History Venlafaxine HCl ER [Effexor Xr] 150 mg PO AC-LUNCH 12/11/21 12/11/21 History Vitamin D3(Unknown) 1 tab PO DAILY 12/11/21 12/11/21 History Allergies Allergy/AdvReac Type Severity Reaction Status Date / Time Penicillins Allergy Unknown, + Verified 12/11/21 16:16 allergy testing as a child shrimp Allergy Rash/Hives Verified 12/11/21 16:16 around mouth Physical Exam Vitals: Vital Signs Temp Pulse Pulse Resp BP BP Pulse Ox 12/12/21 11:35 90 16 135/79 97 12/12/21 11:22 92 16 137/83 99 12/12/21 11:10 94 16 133/76 97 12/12/21 05:08 97.8 F 100 16 120/69 95 12/11/21 22:00 98.1 F 94 16 146/79 93 L 12/11/21 18:41 94 18 132/79 96 12/11/21 16:36 94 18 131/75 97 12/11/21 13:36 97.0 F L 100 20 135/81 96 Intake and Output 12/11/21 12/12/21 12/12/21 22:59 06:59 14:59 Intake Total 100 Balance 100 Intake: Oral 100 Other: Weight 73.028 kg Awake, comfortable, not in any acute distress Examination of the heart S1 and S2 Examination lungs bilateral breath sounds are heard Abdomen is soft nontender Examination lower extremity shows no significant edema HERBOLOGIST exam grossly intact Results - Lab Results Most recent lab results Calcium 12.1 mg/dL (8.4-10.2) H 12/12/21 09:58 Phosphorus 4.1 mg/dL (2.5-4.5) 12/11/21 15:53 Magnesium 1.8 mg/dL (1.6-2.3) 12/11/21 15:53 12/12/21 09:58 12/12/21 09:58 Assessment and Plan Assessment: 1. Hypercalcemia associated with underlying malignancy. PTH is appropriately low. Check one 25-hydroxy vitamin D level as this may be underlying lymphoma. Patient is status post pamidronate. Serum calcium has decreased to 12.1 mg/dL. 2. Acute kidney injury associated with hypercalcemia and hypovolemia. Mainta ined on IV fluids. UA appears benign. No evidence of obstruction on CAT scan 3. Large intra-abdominal retroperitoneal mass currently undergoing workup. 4. Hypothyroidism maintained on supplementation Plan: Continue with normal saline Check one 25-hydroxy vitamin D level and 25-hydroxy vitamin D. Repeat labs in a.m. Avoid any other nephrotoxic agents Workup as per oncology Thank you for the consultation. We will continue to follow the patient with you during her hospitalization
[2021-12-12] MEDS: VENLAFAXINE HCL ER 150 MG CAP PO SCH (13:26)
[2021-12-12] MEDS: LACTULOSE 20 GM/30 ML CUP PO SCH ×3 (13:26→21:53)
[2021-12-12] MEDS: DOCUSATE 100 MG CAP PO SCH ×2 (13:26→20:02)
[2021-12-12 15:18] LABS: Hepatitis A Antibody IgM Nonreactive (Nonreactive); Hepatitis B Core IgM Nonreactive (Nonreactive); Hepatitis B Surface Antigen Nonreactive (Nonreactive); Hepatitis C IgG Antibody Nonreactive (Nonreactive)
[2021-12-12 15:28] VITALS: BMI 25.2
--- NOTE | 2021-12-12 16:13 | P.CONS ---
History of Present Illness - Reason for Consult Consult date: 12/12/21 Large Retroperitoneal mass - Chief Complaint Abdominal Pain - History of Present Illness Mrs. Cheng is a 71 year old female presenting with abdominal pain, CT scan on admission revealed a large retroperitoneal mass 15.8cm. This am we have discussed with IR regarding biopsy of mass as well as, increased creatinine. Biopsy benefit outweighs risk and likely resulting in worsening renal function t herefore will hydrate prir and post biopsy with contrast guided CT Review of Systems All systems: negative Constitutional: Reports as per HPI Past Medical History Past Medical History: Hyperlipidemia, Thyroid Disorder History of Any Multi-Drug Resistant Organisms: None Reported Past Surgical History: Cholecystectomy, Hysterectomy, Orthopedic Surgery Additional Past Surgical History / Comment(s): PARTIAL THYROIDECTOMY. LT ROTATOR CUFF REPAIRED. Past Anesthesia/Blood Transfusion Reactions: Motion Sickness Smoking Status: Never smoker Past Alcohol Use History: None Reported Past Drug Use History: None Reported - Past Family History Mother Sister(s) Family Medical History: Cancer Medications and Allergies Home Medications Medication Instructions Recorded Confirmed Type Levothyroxine Sodium [Synthroid] 100 mcg PO DAILY 09/07/14 12/11/21 History Vitamin B Complex 1 cap PO DAILY 09/07/14 12/11/21 History Spironolactone [Aldactone] 100 mg PO DAILY 12/11/21 12/11/21 History Venlafaxine HCl ER [Effexor Xr] 150 mg PO AC-LUNCH 12/11/21 12/11/21 History Vitamin D3(Unknown) 1 tab PO DAILY 12/11/21 12/11/21 History Allergies Allergy/AdvReac Type Severity Reaction Status Date / Time Penicillins Allergy Unknown, + Verified 12/11/21 16:16 allergy testing as a child shrimp Allergy Rash/Hives Verified 12/11/21 16:16 around mouth Physical Exam Vitals: Vital Signs Temp Pulse Pulse Resp BP BP Pulse Ox 12/12/21 11:35 90 16 135/79 97 12/12/21 11:22 92 16 137/83 99 12/12/21 11:10 94 16 133/76 97 12/12/21 05:08 97.8 F 100 16 120/69 95 12/11/21 22:00 98.1 F 94 16 146/79 93 L 12/11/21 18:41 94 18 132/79 96 12/11/21 16:36 94 18 131/75 97 12/11/21 13:36 97.0 F L 100 20 135/81 96 Intake and Output 12/11/21 12/12/21 12/12/21 22:59 06:59 14:59 Intake Total 100 Balance 100 Intake: Oral 100 Other: Weight 73.028 kg - Constitutional General appearance: cooperative - EENT Eyes: EOMI ENT: NA/AT - Neck Neck: normal ROM - Respiratory Respiratory: bilateral: diminished - Cardiovascular Rhythm: regularly irregular - Gastrointestinal General gastrointestinal: tenderness - Integumentary Integumentary: pale - Psychiatric Psychiatric: A&O x's 3, appropriate affect Results CBC & Chem 7: 12/12/21 09:58 12/12/21 09:58 Labs: Abnormal Lab Results - Last 24 Hours (Table) 12/11/21 12/11/21 12/11/21 Range/Units 14:33 14:40 15:33 BUN 32 H (7-17) mg/dL Creatinine 1.68 H (0.52-1.04) mg/dL Uric Acid (3.7-7.4) mg/dL Calcium 14.7 H* (8.4-10.2) mg/dL Ionized Calcium Arielle (4.5-5.3) mg/dL AST 41 H (14-36) U/L ALT 63 H (4-34) U/L C-Reactive Protein 1.1 H (<1.0) mg/dL Urine Appearance Cloudy H (Clear) Urine Protein Trace H (Negative) Urine Ketones Trace H (Negative) Calcium Oxalate Crystal Rare H (None) /hpf Urine Bacteria Rare H (None) /hpf Urine Mucus Rare H (None) /hpf 12/11/21 12/12/21 Range/Units 15:53 09:58 BUN 35 H (7-17) mg/dL Creatinine 1.76 H (0.52-1.04) mg/dL Uric Acid 8.0 H (3.7-7.4) mg/dL Calcium 12.1 H (8.4-10.2) mg/dL Ionized Calcium Arielle 7.9 H* (4.5-5.3) mg/dL AST 38 H (14-36) U/L ALT 56 H (4-34) U/L C-Reactive Protein (<1.0) mg/dL Urine Appearance (Clear) Urine Protein (Negative) Urine Ketones (Negative) Calcium Oxalate Crystal (None) /hpf Urine Bacteria (None) /hpf Urine Mucus (None) /hpf CT scan - abdomen: report reviewed Assessment and Plan Plan: This is a 71-year-old female who presented to the emergency department for constipation and abdominal pain. Per patient >9 weeks ago was last time her bowels moved. Admitted to nausea. CT scan revealed large retroperitoneal mass 15.8cm. She is now status post CT guided biopsy by IR. Large Abdominal Mass: -Status post Biopsy - Await Results for further recommendations Hypercalcemia - - Status post Aredia Acute Renal Insufficiency: - Continue hydration - Check TLS Dr. Brown: I have complete the full history and physical and developed the above impression and plan, agree with dictation, dictated as a scribe Ms. Cheng is having abdominal distention, constipation, and nausea found to have hypercalcemia, BETH, and large retroperitoneal mass measuring 15 cm. She has been started on aggressive IVF hydration and pamidronate in addition to calcitonin given in the ED. She underwent IR guided biopsy of the mass today. LDH is within normal limits, which makes aggressive lymphoma less likely and potentially less responsive to high dose IV steroids. We will follow up results of biopsy will continuing hydration and additional treatment of hypercalcemia.
--- NOTE | 2021-12-13 00:32 | HP ---
HISTORY AND PHYSICAL CHIEF COMPLAINT: Hypercalcemia. HISTORY OF PRESENT ILLNESS: This is a 71-year-old woman with a past medical history of hyperlipidemia, thyroid disorder, being followed by Dr. Austen Garcia. The patient is having constipation for the last several weeks. The patient came to [facility]. The patient was found to have severe hypercalcemia with a calcium of 14.7. The patient on further evaluation also showed evidence of retroperitoneal tumor and the patient is being admitted for further evaluation and treatment. Hematology/Oncology evaluation progressed and biopsies also being planned at this time. There is no history of any fever, rigors, or chills at this time. PAST MEDICAL HISTORY: Hyperlipidemia, thyroid disorder. MEDICATIONS: Home medications reviewed include vitamin D3, doses and rest of medications noted. ALLERGIES: Penicillin. FAMILY HISTORY: Cancer. SOCIAL HISTORY: No history of smoking, or alcohol intake. REVIEW OF SYSTEMS: A 14-point review of systems is negative except as mentioned earlier. PHYSICAL EXAMINATION: VITAL SIGNS: Pulse is 94, blood pressure 133/76, respirations 16. HEENT: Conjunctivae normal. NECK: No JVD. CARDIOVASCULAR: S1 and S2. RESPIRATIONS: Breath sounds diminished at the bases. A few scattered rhonchi and crackles. ABDOMEN: Soft. Minimal tenderness in the left lower quadrant. Minimal distention also present. LEGS: No edema. No cyanosis. NERVOUS SYSTEM: No focal deficits. JOINTS: No active deforming arthropathy. LABS: At this time, CBC within normal limits. Repeat calcium is 12.1. ASSESSMENT: 1. Acute hypercalcemia. 2. Retroperitoneal tumor, rule out lymphoma. 3. Acute renal failure. 4. Hyperlipidemia. 5. Multiple medical issues. RECOMMENDATIONS AND DISCUSSION: This is a 71-year-old woman, who presented with multiple complex medical issues. At this time, I recommend to continue current medications, symptomatic treatment. Otherwise, pain management. The patient is on IV fluids. We will repeat calcium and the patient is given Aredia and further recommendations to follow. Nephrology also has been consulted. We will proceed with retroperitoneal mass biopsy and further recommendations to follow. See orders for details. We will hold the vitamin D. MMODL / IJN: [id number] /
[2021-12-13] MEDS: ONDANSETRON 4 MG/2 ML VIAL IVP PRN ×2 (03:28→17:19)
[2021-12-13] MEDS: DOCUSATE 100 MG CAP PO SCH ×2 (05:46→19:15)
[2021-12-13] MEDS: LACTULOSE 20 GM/30 ML CUP PO SCH ×4 (05:47→19:15)
[2021-12-13] MEDS: LEVOTHYROXINE 100 MCG TAB PO SCH (05:49)
[2021-12-13] MEDS: SODIUM CHLORIDE 0.9% 1,000 ML IV SCH ×3 (05:49→18:15)
[2021-12-13] MEDS: SPIRONOLACTONE 25 MG TAB PO SCH (08:55)
[2021-12-13 09:20] LABS: Basophils # (A) 0 X 10*3/uL (0.00-0.10); Basophils % (A) 0 %; Eosinophils # (A) 0.19 X 10*3/uL (0.04-0.35); Eosinophils % (A) 2.2 %; HCT 33.2 % (37.2-46.3); Immature Grans, Automated 0.3 %; Lymphocytes # (A) 0.79 X 10*3/uL (0.90-5.00); MCH 30.3 pg (27.0-32.0); MCHC 33.1 g/dL (32.0-37.0); MCV 91.5 fL (80.0-97.0); Mean Platelet Volume 10.6 fL (9.5-12.2); Monocytes # (A) 0.78 X 10*3/uL (0.20-1.00); Monocytes % (A) 8.9 %; NRBC Per 100 WBC 0 /100 WBCS (0.0-0.0); Neutrophils % (A) 79.6 %; Platelet Count 272 X 10*3/uL (140-440); RBC 3.63 X 10*6/uL (4.10-5.20); RDW 13.3 % (11.5-14.5); WBC 8.79 X 10*3/uL (4.50-10.00)
[2021-12-13 09:29] LABS: African American GFR (CKD) 40.5 (60.0-200.0); Albumin 3.6 g/dL (3.8-4.9); Albumin/Globulin Ratio 1.69 (1.60-3.17); Anion Gap 12.1 mmol/L (10.00-18.00); BUN/Creat Ratio 18.48 Ratio (12.00-20.00); Blood Urea Nitrogen 27.9 mg/dL (9.0-27.0); Calcium 11.2 mg/dL (8.7-10.3); Carbon Dioxide 24.6 mmol/L (20.0-27.5); Globulin 2.1 g/dL (1.6-3.3); Magnesium 1.8 mg/dL (1.5-2.4); Non-African American GFR(CKD) 34.9 (60.0-200.0); Phosphorus 2.6 mg/dL (2.4-5.1); Potassium 4.4 mmol/L (3.5-5.5); Total Bilirubin 0.5 mg/dL (0.30-1.20); Total Protein 5.7 g/dL (6.2-8.2); Uric Acid 7.1 mg/dL (2.9-7.7)
--- NOTE | 2021-12-13 09:34 | P.PN ---
Subjective Patient is seen in follow for acute kidney injury. Resting in bed. Receiving IV fluids. Good urine output. Renal function improving. Calcium level also trending down. Denies chest pain or shortness of breath. Oral intake poor. Admits to loose bowel movements. Vital signs are stable. General: Awake. No acute distress. HEENT: Head exam is unremarkable. LUNGS: Breath sounds decreased. HEART: Rate and Rhythm are regular. ABDOMEN: Soft, no distention. EXTREMITITES: No edema. Objective - Vital Signs Vital signs: Vital Signs Temp 97.7 F 12/13/21 03:32 Pulse 95 12/13/21 03:32 Resp 16 12/13/21 03:32 BP 147/88 12/13/21 03:32 Pulse Ox 97 12/13/21 03:32 FiO2 Intake & Output 12/12/21 12/13/21 12/13/21 18:59 06:59 18:59 Intake Total 550 1800 Balance 550 1800 Weight 73.028 kg Intake: Intake, IV Titration 550 1800 Amount Sodium Chloride 0.9% 1, 300 1800 000 ml @ 150 mls/hr IV . Q6H40M [facility] Rx#:[id number] Sodium Chloride 0.9% 250 250 ml @ 83 mls/hr IV .Q3H1M ONE with Pamidronate 60 mg Rx#:[id number] Other: Voiding Method Toilet Toilet Bedside Commode Bedside Commode # Voids 3 # Bowel Movements 3 - Labs CBC & Chem 7: 12/13/21 05:45 12/12/21 09:58 Labs: Abnormal Lab Results - Last 24 Hours (Table) 12/12/21 12/13/21 Range/Units 09:58 05:45 RBC 3.63 L (4.10-5.20) X 10*6/uL Hgb 11.0 L (12.0-15.0) g/dL Hct 33.2 L (37.2-46.3) % Lymphocytes # 0.79 L (0.90-5.00) X 10*3/uL BUN 35 H (7-17) mg/dL Creatinine 1.76 H (0.52-1.04) mg/dL Uric Acid 8.0 H (3.7-7.4) mg/dL Calcium 12.1 H (8.4-10.2) mg/dL AST 38 H (14-36) U/L ALT 56 H (4-34) U/L Vitamin D 25-Hydroxy 135.0 H (30.0-100.0) ng/mL Assessment and Plan Plan: Assessment: 1. Acute kidney injury mostly prerenal secondary to hypercalcemia and hypokalemia. Improving. Creatinine 1.5 today. UA fairly benign. No hydronephrosis noted on CAT scan. Creatinine in January 2014 was 0.72. 2. Retroperitoneal mass status post biopsy. Oncology following. 3. Hypercalcemia of malignancy. PTH low at 17.3. TSH normal. Vitamin D level high at 135. She was taking vitamin D at home which is now held. Plan: Maintain IV fluids. Status post pamidronate given 12/12/2021. Follow up pending workup for hypercalcemia. Continue to monitor renal function and urine output. Continue to hold any calcium or vitamin D supplementation.
[2021-12-13] MEDS: VENLAFAXINE HCL ER 150 MG CAP PO SCH (12:31)
[2021-12-13] MEDS: SIMETHICONE 80 MG CHEWABLE PO SCH ×3 (12:34→21:03)
--- NOTE | 2021-12-13 13:05 | P.PN ---
Subjective Progress Note Date: 12/13/21 Principal diagnosis: Retroperitoneal mass suspicious for malignancy -Underwent CT-guided biopsy of the retroperitoneal mass 12/12/2021 with pathology pending -Received pamidronate 60 mg IV in addition to IV fluid hydration with normal saline 0.9% at 150 mL per hour -No acute events overnight -She notes abdominal pain in the lower quadrants have improved, but notes persistent distention in the upper abdomen -She has not had a bowel movement, but is passing gas -She denies any nausea, vomiting, fevers, or chills currently Objective - Vital Signs Vital signs: Vital Signs Temp 98.7 F 12/13/21 11:30 Pulse 115 H 12/13/21 11:30 Resp 16 12/13/21 11:30 BP 145/78 12/13/21 11:30 Pulse Ox 94 L 12/13/21 11:30 FiO2 Intake & Output 12/12/21 12/13/21 12/13/21 18:59 06:59 18:59 Intake Total 550 1800 Balance 550 1800 Weight 73.028 kg Intake: Intake, IV Titration 550 1800 Amount Sodium Chloride 0.9% 1, 300 1800 000 ml @ 150 mls/hr IV . Q6H40M [facility] Rx#:[id number] Sodium Chloride 0.9% 250 250 ml @ 83 mls/hr IV .Q3H1M [facility] with Pamidronate 60 mg Rx#:[id number] Other: Voiding Method Toilet Toilet Bedside Commode Bedside Commode # Voids 3 # Bowel Movements 3 - Constitutional General appearance: Present: average body habitus, cooperative, no acute distress - EENT Eyes: Present: EOMI - Respiratory Respiratory: bilateral: CTA - Cardiovascular Rhythm: regular - Gastrointestinal General gastrointestinal: Present: distended, soft. Absent: organomegaly, tenderness - Integumentary Integumentary: Absent: rash - Neurologic Neurologic: Present: CNII-XII intact - Psychiatric Psychiatric: Present: A&O x's 3, appropriate affect - Labs CBC & Chem 7: 12/13/21 05:45 12/13/21 05:45 Labs: Abnormal Lab Results - Last 24 Hours (Table) 12/12/21 12/13/21 12/13/21 Range/Units 09:58 05:45 05:45 RBC 3.63 L (4.10-5.20) X 10*6/uL Hgb 11.0 L (12.0-15.0) g/dL Hct 33.2 L (37.2-46.3) % Lymphocytes # 0.79 L (0.90-5.00) X 10*3/uL BUN 27.9 H (9.0-27.0) mg/dL Est GFR (CKD-EPI)AfAm 40.5 L (60.0-200.0) Est GFR (CKD-EPI)NonAf 34.9 L (60.0-200.0) Calcium 11.2 H (8.7-10.3) mg/dL AST 48 H (13-35) U/L ALT 70 H (8-44) U/L Total Protein 5.7 L (6.2-8.2) g/dL Albumin 3.6 L (3.8-4.9) g/dL Vitamin D 25-Hydroxy 135.0 H (30.0-100.0) ng/mL - Imaging and Cardiology CT scan - abdomen: report reviewed, image reviewed Assessment and Plan Assessment: Ms. Cheng is a 71-year-old woman who presented with progressive abdominal distention, nausea, constipation, anorexia who was found to have large 15 cm retroperitoneal mass along with hypercalcemia and BETH with findings suspicious for malignancy. Plan: #Retroperitoneal mass -Underwent CT-guided biopsy on 12/12/2021, we will await final pathology -LDH was normal, which makes aggressive lymphoma less likely -Acute hepatitis panel was negative, with HIV still pending -Given the low suspicion for lymphoma, we will not administer high-dose steroids at this time -Simethicone 4 times a day was added for upper abdominal distention and discomfort #Hypercalcemia, BETH -Presented with initial calcium of 14.7, which is since improved to 11.2 today -Creatinine is slowly improving with creatinine of 1.5 today -Uric acid was likely elevated due to BETH with no evidence of tumor lysis syndrome at this time -She received IV calcitonin and pamidronate since admission and is currently on IV fluids with normal saline at 150 mL per hour -Continue normal saline at the current rate for today
--- NOTE | 2021-12-13 15:01 | PN ---
PROGRESS NOTE SUBJECTIVE: This is a 71-year-old woman who was admitted with acute hypercalcemia, also had retroperitoneal tumor and fine-needle biopsy was done yesterday. The patient had hypercalcemia, renal failure which both are improving. No chest pain, no palpitations. The patient has also had constipation which is also improving with medications. OBJECTIVE: VITAL SIGNS: Pulse is 95, blood pressure 170/88, respirations 16. HEENT: Conjunctivae normal. Oral mucosa moist. CARDIOVASCULAR: S1, S2. RESPIRATION: Clear to auscultation. ABDOMEN: Soft, diffuse discomfort. LABS: Reviewed, creatinine 1.5. Calcium is 11.2. ASSESSMENT: 1. Acute hypercalcemia. 2. Retroperitoneal tumor, rule out lymphoma. 3. Acute renal failure. 4. Hyperlipidemia. 5. Multiple medical issues. RECOMMENDATIONS: Recommend to continue current management. LDH has been become . According to Dr. Gupta, the oncologist, lymphoma becomes less likely , however we will continue to monitor and await for the final biopsy report and we will follow the hypercalcemia and renal failure along with Nephrology both of which are seeming to be improving slightly. Continue to monitor. MMODL / IJN: [id number] /
[2021-12-13] MEDS: HYDROcodone/APAP 5-325MG 1 EACH TAB PO PRN (21:02)
[2021-12-14] MEDS: SODIUM CHLORIDE 0.9% 1,000 ML IV SCH ×4 (00:29→23:59)
[2021-12-14] MEDS: HYDROcodone/APAP 5-325MG 1 EACH TAB PO PRN (03:34)
[2021-12-14] MEDS: LEVOTHYROXINE 100 MCG TAB PO SCH (06:10)
[2021-12-14 07:45] LABS: Chloride 105 mmol/L (98-107)
[2021-12-14 07:46] LABS: ALT 46 U/L (4-34); AST 36 U/L (14-36); African American GFR (CKD) 46 (>60 ml/min/1.73 sqM); Albumin 2.7 g/dL (3.5-5.0); Albumin/Globulin Ratio 1.3; Alkaline Phosphatase 90 U/L (38-126); Anion Gap 8 mmol/L; Blood Urea Nitrogen 21 mg/dL (7-17); Calcium 10.1 mg/dL (8.4-10.2); Carbon Dioxide 25 mmol/L (22-30); Globulin 2.1 g/dL; Glucose 81 mg/dL (74-99); Magnesium 1.3 mg/dL (1.6-2.3); Non-African American GFR(CKD) 40 (>60 ml/min/1.73 sqM); Potassium 3.8 mmol/L (3.5-5.1); Sodium 138 mmol/L (137-145); Total Bilirubin 0.5 mg/dL (0.2-1.3); Total Protein 4.8 g/dL (6.3-8.2)
[2021-12-14] MEDS: SIMETHICONE 80 MG CHEWABLE PO SCH ×4 (08:55→21:10)
[2021-12-14] MEDS: SPIRONOLACTONE 25 MG TAB PO SCH (08:55)
[2021-12-14] MEDS: ONDANSETRON 4 MG/2 ML VIAL IVP PRN (08:59)
[2021-12-14] MEDS: LACTULOSE 20 GM/30 ML CUP PO SCH ×4 (08:59→20:15)
[2021-12-14] MEDS: DOCUSATE 100 MG CAP PO SCH ×2 (08:59→20:15)
[2021-12-14 10:24] LABS: Basophils # (A) 0 X 10*3/uL (0.00-0.10); Basophils % (A) 0 %; Eosinophils # (A) 0.16 X 10*3/uL (0.04-0.35); Eosinophils % (A) 3.1 %; HCT 29.2 % (37.2-46.3); HGB 9.9 g/dL (12.0-15.0); Immature Grans, Automated 0.2 %; Lymphocytes # (A) 0.74 X 10*3/uL (0.90-5.00); Lymphocytes % (A) 14.4 %; MCH 30.8 pg (27.0-32.0); MCHC 33.9 g/dL (32.0-37.0); Mean Platelet Volume 10.5 fL (9.5-12.2); Monocytes # (A) 0.49 X 10*3/uL (0.20-1.00); Monocytes % (A) 9.5 %; NRBC Per 100 WBC 0 /100 WBCS (0.0-0.0); Neutrophils # (A) 3.74 X 10*3/uL (1.80-7.70); Neutrophils % (A) 72.8 %; Platelet Count 245 X 10*3/uL (140-440); RBC 3.21 X 10*6/uL (4.10-5.20); RDW 13.3 % (11.5-14.5); WBC 5.14 X 10*3/uL (4.50-10.00)
--- NOTE | 2021-12-14 10:33 | P.PN ---
Subjective Patient is seen in follow for acute kidney injury. Resting in bed. Receiving IV fluids. Good urine output. Renal function improving. Calcium level also trending down. Denies chest pain or shortness of breath. Oral intake still not good. No vomiting or diarrhea. Vital signs are stable. General: Awake. No acute distress. HEENT: Head exam is unremarkable. LUNGS: Breath sounds decreased. HEART: Rate and Rhythm are regular. ABDOMEN: Soft, no distention. EXTREMITITES: No edema. Objective - Vital Signs Vital signs: Vital Signs Temp 98.3 F 12/14/21 09:15 Pulse 96 12/14/21 09:15 Resp 14 12/14/21 09:15 BP 115/64 12/14/21 09:15 Pulse Ox 98 12/14/21 09:15 FiO2 Intake & Output 12/13/21 12/14/21 12/14/21 18:59 06:59 18:59 Intake Total 540 2200 Balance 540 2200 Intake: Intake, IV Titration 1800 Amount Sodium Chloride 0.9% 1, 1800 000 ml @ 150 mls/hr IV . Q6H40M [facility] Rx#:[id number] Oral 540 400 Other: Voiding Method Toilet Toilet Toilet Bedside Commode Bedside Commode # Voids 4 2 # Bowel Movements 1 - Labs CBC & Chem 7: 12/14/21 07:14 12/14/21 07:14 Labs: Abnormal Lab Results - Last 24 Hours (Table) 12/14/21 12/14/21 Range/Units 07:14 07:14 RBC 3.21 L (4.10-5.20) X 10*6/uL Hgb 9.9 L (12.0-15.0) g/dL Hct 29.2 L (37.2-46.3) % Lymphocytes # 0.74 L (0.90-5.00) X 10*3/uL BUN 21 H (7-17) mg/dL Creatinine 1.36 H (0.52-1.04) mg/dL Magnesium 1.3 L (1.6-2.3) mg/dL ALT 46 H (4-34) U/L Total Protein 4.8 L (6.3-8.2) g/dL Albumin 2.7 L (3.5-5.0) g/dL Assessment and Plan Plan: Assessment: 1. Acute kidney injury mostly prerenal secondary to hypercalcemia and hypokalem ia. Improving. Creatinine 1.36 today. UA fairly benign. No hydronephrosis noted on CAT scan. Creatinine in January 2014 was 0.72. 2. Retroperitoneal mass status post biopsy. Oncology following. 3. Hypercalcemia of malignancy. Improving. PTH low at 17.3. TSH normal. Vitamin D level high at 135. She was taking vitamin D at home which is now held. 4. Hypomagnesemia from poor intake. Plan: Maintain IV fluids - decrease rate to 100 mL an hour. Status post pamidronate given 12/12/2021. Follow up pending workup for hypercalcemia. Continue to monitor renal function and urine output. Continue to hold any calcium or vitamin D supplementation. Replace magnesium. Decrease dose of spironolactone to 50 mg once daily and hold for systolic blood pressure less than 120.
[2021-12-14] MEDS: MAGNESIUM SULFATE-D5W PMX 1 GM in DEXTROSE/WATER 1 100ML.BAG IVPB SCH ×2 (11:31→13:03)
[2021-12-14] MEDS: VENLAFAXINE HCL ER 150 MG CAP PO SCH (11:33)
--- NOTE | 2021-12-14 14:42 | XR ---
EXAMINATION TYPE: XR chest 1V portable DATE OF EXAM: 12/14/2021 COMPARISON: None HISTORY: Fever TECHNIQUE: Single frontal view of the chest is obtained. FINDINGS: There is no focal air space opacity, pleural effusion, or pneumothorax seen. The cardiac silhouette size is within normal limits. The osseous structures are intact. IMPRESSION: No acute process.
--- NOTE | 2021-12-14 15:24 | P.PN ---
Subjective Progress Note Date: 12/14/21 Principal diagnosis: Retroperitoneal mass suspicious for malignancy -Noted to be febrile to 100.8F yesterday evening with heart rate 117 -No additional workup ordered overnight -She reports feeling more sluggish today, but ate crackers this morning. This is the first solid food she has eaten since admission -She was given aggressive bowel regimen with lactulose yesterday per primary team has had episodes of loose stool secondary to this -She denies any fevers, chills, dyspnea, or chest pain Objective - Vital Signs Vital signs: Vital Signs Temp 97.9 F 12/14/21 11:55 Pulse 102 H 12/14/21 11:55 Resp 18 12/14/21 11:55 BP 132/85 12/14/21 11:55 Pulse Ox 96 12/14/21 11:55 FiO2 Intake & Output 12/13/21 12/14/21 12/14/21 18:59 06:59 18:59 Intake Total 540 2200 296 Balance 540 2200 296 Intake: Intake, IV Titration 1800 Amount Sodium Chloride 0.9% 1, 1800 000 ml @ 150 mls/hr IV . Q6H40M [facility] Rx#:[id number] Oral 540 400 296 Other: Voiding Method Toilet Toilet Toilet Bedside Commode Bedside Commode # Voids 4 2 # Bowel Movements 1 - Constitutional General appearance: Present: average body habitus, cooperative, no acute distress - EENT Eyes: Present: EOMI - Respiratory Respiratory: bilateral: CTA - Cardiovascular Rhythm: regular - Gastrointestinal General gastrointestinal: Present: distended, soft. Absent: tenderness - Integumentary Integumentary: Absent: rash - Neurologic Neurologic: Present: CNII-XII intact. Absent: focal deficits - Labs CBC & Chem 7: 12/14/21 07:14 12/14/21 07:14 Labs: Abnormal Lab Results - Last 24 Hours (Table) 12/14/21 12/14/21 Range/Units 07:14 07:14 RBC 3.21 L (4.10-5.20) X 10*6/uL Hgb 9.9 L (12.0-15.0) g/dL Hct 29.2 L (37.2-46.3) % Lymphocytes # 0.74 L (0.90-5.00) X 10*3/uL BUN 21 H (7-17) mg/dL Creatinine 1.36 H (0.52-1.04) mg/dL Magnesium 1.3 L (1.6-2.3) mg/dL ALT 46 H (4-34) U/L Total Protein 4.8 L (6.3-8.2) g/dL Albumin 2.7 L (3.5-5.0) g/dL - Imaging and Cardiology Chest x-ray: report reviewed Assessment and Plan Assessment: Ms. Cheng is a 71-year-old woman who presented with progressive abdominal distention, nausea, constipation, anorexia who was found to have large 15 cm retroperitoneal mass along with hypercalcemia and BETH with findings suspicious for malignancy. Plan: #Retroperitoneal mass -Underwent CT-guided biopsy on 12/12/2021, we will await final pathology -LDH was normal, which makes aggressive lymphoma less likely -Acute hepatitis panel was negative, with HIV still pending -Given the low suspicion for lymphoma, we will not administer high-dose steroids at this time -Simethicone 4 times a day was added for upper abdominal distention and discomfort #Hypercalcemia, BETH -Presented with initial calcium of 14.7, which is since improved to 10.1 today -Creatinine is slowly improving with creatinine of 1.36 today -Uric acid was likely elevated due to BETH with no evidence of tumor lysis syndrome at this time -She received IV calcitonin and pamidronate since admission and is currently on IV fluids with normal saline at 150 mL per hour -Decrease IV fluids to 100 mL per hour #Fever -Noted to have temperature of 100.8F yesterday evening with associated tachycardia -She has no focal signs or symptoms concerning for infection at this time -Chest x-ray ordered today revealed no acute process -Blood culture has been ordered to assess for bacteremia -Likely, this is secondary to underlying malignant process
--- NOTE | 2021-12-14 21:21 | PN ---
PROGRESS NOTE SUBJECTIVE: This 71-year-old woman was admitted with hypercalcemia, abdominal mass, had a biopsy. Patient also has some constipation. The patient also running some low-grade fever. No chest pain or palpitation. OBJECTIVE: VITAL SIGNS: Pulse 102, blood pressure 130/85, respirations 18. HEENT: Conjunctivae normal. NECK: No JVD. CARDIOVASCULAR: S1, S2 muffled. RESPIRATION: Clear to auscultation. ABDOMEN: Soft, nontender. NERVOUS SYSTEM: Nonfocal. LABORATORY DATA: Hemoglobin 9.9, creatinine is 1.36. Other labs are noted. ASSESSMENT: 1. Acute hypercalcemia. 2. Retroperitoneum tumor, rule out lymphoma. 3. Acute renal failure. 4. Hyperlipidemia, on multiple medical issues. 5. Low-grade fever. RECOMMENDATIONS AND DISCUSSION: I recommend to continue current medications, symptomatic treatment. Repeat labs. Otherwise, I would also recommend a portable chest x-ray. Incentive spirometry. Continue to monitor. Further recommendations to follow. MMODL / IJN: [id number] /
[2021-12-15] MEDS: LEVOTHYROXINE 100 MCG TAB PO SCH (05:40)
[2021-12-15 06:10] LABS: ALT 44 U/L (4-34); AST 36 U/L (14-36); African American GFR (CKD) 51 (>60 ml/min/1.73 sqM); Albumin 2.9 g/dL (3.5-5.0); Albumin/Globulin Ratio 1.4; Alkaline Phosphatase 93 U/L (38-126); Anion Gap 8 mmol/L; Blood Urea Nitrogen 16 mg/dL (7-17); Calcium 9.6 mg/dL (8.4-10.2); Carbon Dioxide 25 mmol/L (22-30); Chloride 107 mmol/L (98-107); Globulin 2.1 g/dL; Glucose 78 mg/dL (74-99); Magnesium 1.5 mg/dL (1.6-2.3); Non-African American GFR(CKD) 44 (>60 ml/min/1.73 sqM); Potassium 3.8 mmol/L (3.5-5.1); Sodium 140 mmol/L (137-145); Total Bilirubin 0.5 mg/dL (0.2-1.3)
[2021-12-15 08:36] LABS: Basophils # (A) 0.01 X 10*3/uL (0.00-0.10); Basophils % (A) 0.2 %; Eosinophils # (A) 0.27 X 10*3/uL (0.04-0.35); Eosinophils % (A) 4.9 %; HCT 29.8 % (37.2-46.3); HGB 10.1 g/dL (12.0-15.0); Immature Grans, Automated 0.4 %; Lymphocytes # (A) 1.04 X 10*3/uL (0.90-5.00); Lymphocytes % (A) 18.8 %; MCH 30.4 pg (27.0-32.0); MCHC 33.9 g/dL (32.0-37.0); MCV 89.8 fL (80.0-97.0); Mean Platelet Volume 10.6 fL (9.5-12.2); Monocytes # (A) 0.84 X 10*3/uL (0.20-1.00); Monocytes % (A) 15.2 %; NRBC Per 100 WBC 0 /100 WBCS (0.0-0.0); Neutrophils # (A) 3.36 X 10*3/uL (1.80-7.70); Neutrophils % (A) 60.5 %; Platelet Count 258 X 10*3/uL (140-440); RBC 3.32 X 10*6/uL (4.10-5.20); RDW 13.3 % (11.5-14.5); WBC 5.54 X 10*3/uL (4.50-10.00)
[2021-12-15] MEDS: LACTULOSE 20 GM/30 ML CUP PO SCH ×4 (08:55→20:05)
[2021-12-15] MEDS: SODIUM CHLORIDE 0.9% 1,000 ML IV SCH ×2 (08:57→20:08)
[2021-12-15] MEDS: SPIRONOLACTONE 25 MG TAB PO SCH (08:58)
[2021-12-15] MEDS: DOCUSATE 100 MG CAP PO SCH ×2 (08:58→20:05)
[2021-12-15] MEDS: SIMETHICONE 80 MG CHEWABLE PO SCH ×4 (08:59→20:59)
--- NOTE | 2021-12-15 10:03 | P.PN ---
Subjective Patient is seen in follow for acute kidney injury. Resting in bed. Receiving IV fluids. Good urine output. Renal function improving. Calcium level also trending down. Denies chest pain or shortness of breath. Oral intake is better. No vomiting or diarrhea. Vital signs are stable. General: Awake. No acute distress. HEENT: Head exam is unremarkable. LUNGS: Breath sounds decreased. HEART: Rate and Rhythm are regular. ABDOMEN: Soft, no distention. EXTREMITITES: No edema. Objective - Vital Signs Vital signs: Vital Signs Temp 98.5 F 12/15/21 04:11 Pulse 96 12/15/21 04:11 Resp 16 12/15/21 04:11 BP 122/63 12/15/21 04:11 Pulse Ox 94 L 12/15/21 04:11 FiO2 Intake & Output 12/14/21 12/15/21 12/15/21 18:59 06:59 18:59 Intake Total 592 1700 Balance 592 1700 Intake: Intake, IV Titration 1200 Amount Sodium Chloride 0.9% 1, 1200 000 ml @ 100 mls/hr IV . Q10H [facility] Rx#:[id number] Oral 592 500 Other: Voiding Method Toilet Toilet Toilet # Voids 1 4 - Labs CBC & Chem 7: 12/15/21 05:19 12/15/21 05:19 Labs: Abnormal Lab Results - Last 24 Hours (Table) 12/14/21 12/15/21 12/15/21 Range/Units 07:14 05:19 05:19 RBC 3.21 L 3.32 L (4.10-5.20) X 10*6/uL Hgb 9.9 L 10.1 L (12.0-15.0) g/dL Hct 29.2 L 29.8 L (37.2-46.3) % Lymphocytes # 0.74 L (0.90-5.00) X 10*3/uL Creatinine 1.24 H (0.52-1.04) mg/dL Magnesium 1.5 L (1.6-2.3) mg/dL ALT 44 H (4-34) U/L Total Protein 5.0 L (6.3-8.2) g/dL Albumin 2.9 L (3.5-5.0) g/dL Assessment and Plan Plan: Assessment: 1. Acute kidney injury mostly prerenal secondary to hypercalcemia and hypokalemia. Improving. Creatinine 1.24 today. UA fairly benign. No hydronephrosis noted on CAT scan. Creatinine in January 2014 was 0.72. 2. Retroperitoneal mass status post biopsy. Oncology following. 3. Hypercalcemia of malignancy. Improving. PTH low at 17.3. TSH normal. Vitamin D level high at 135. She was taking vitamin D at home which is now held. 4. Hypomagnesemia from poor intake. Replaced. Better. Plan: Maintain IV fluids. Status post pamidronate given 12/12/2021. Follow up pending workup for hypercalcemia. Continue to monitor renal function and urine output. Continue to hold any calcium or vitamin D supplementation. Replace magnesium. Decrease dose of spironolactone to 50 mg once daily and hold for systolic blood pressure less than 120.
[2021-12-15] MEDS ORDERED: Magnesium Replacement Protocol 1 EACH MISC MISCELLANE PRN (10:34)
[2021-12-15] MEDS: MAGNESIUM SULFATE-D5W PMX 1 GM in DEXTROSE/WATER 1 100ML.BAG IVPB SCH ×2 (11:47→13:02)
[2021-12-15] MEDS: VENLAFAXINE HCL ER 150 MG CAP PO SCH (11:49)
[2021-12-15 11:57] LABS: HIV-1 RNA Not detected (Not detected)
[2021-12-16] MEDS: LEVOTHYROXINE 100 MCG TAB PO SCH (05:30)
[2021-12-16] MEDS: SODIUM CHLORIDE 0.9% 1,000 ML IV SCH ×2 (05:33→15:24)
[2021-12-16 07:01] LABS: African American GFR (CKD) 57 (>60 ml/min/1.73 sqM); Anion Gap 7 mmol/L; Blood Urea Nitrogen 17 mg/dL (7-17); Calcium 9.1 mg/dL (8.4-10.2); Carbon Dioxide 25 mmol/L (22-30); Chloride 109 mmol/L (98-107); Glucose 82 mg/dL (74-99); Non-African American GFR(CKD) 50 (>60 ml/min/1.73 sqM); Potassium 3.6 mmol/L (3.5-5.1); Sodium 141 mmol/L (137-145)
[2021-12-16 09:36] LABS: Basophils # (A) 0 X 10*3/uL (0.00-0.10); Basophils % (A) 0 %; Eosinophils # (A) 0.35 X 10*3/uL (0.04-0.35); Eosinophils % (A) 5.5 %; HGB 10.8 g/dL (12.0-15.0); Immature Grans, Automated 0.3 %; MCHC 33.8 g/dL (32.0-37.0); MCV 88.9 fL (80.0-97.0); Mean Platelet Volume 10.4 fL (9.5-12.2); Monocytes # (A) 0.87 X 10*3/uL (0.20-1.00); Monocytes % (A) 13.7 %; NRBC Per 100 WBC 0 /100 WBCS (0.0-0.0); Neutrophils # (A) 3.73 X 10*3/uL (1.80-7.70); Neutrophils % (A) 58.5 %; Platelet Count 293 X 10*3/uL (140-440); RDW 13.3 % (11.5-14.5); WBC 6.37 X 10*3/uL (4.50-10.00)
[2021-12-16] MEDS: SPIRONOLACTONE 25 MG TAB PO SCH (09:51)
[2021-12-16] MEDS: SIMETHICONE 80 MG CHEWABLE PO SCH ×4 (09:52→21:35)
[2021-12-16] MEDS: HYDROcodone/APAP 5-325MG 1 EACH TAB PO PRN (09:55)
[2021-12-16] MEDS ORDERED: POTASSIUM CHLORIDE ER 20 MEQ TAB.ER PO STA (10:18)
--- NOTE | 2021-12-16 10:21 | P.PN ---
Subjective Patient is seen in follow for acute kidney injury. Resting in bed. Receiving IV fluids. Good urine output. Renal function improving. Calcium level normal today. Denies chest pain or shortness of breath. Oral intake is better. No vomiting or diarrhea. Vital signs are stable. General: Awake. No acute distress. HEENT: Head exam is unremarkable. LUNGS: Breath sounds decreased. HEART: Rate and Rhythm are regular. ABDOMEN: Soft, no distention. EXTREMITITES: No edema. Objective - Vital Signs Vital signs: Vital Signs Temp 98.2 F 12/16/21 08:36 Pulse 88 12/16/21 08:36 Resp 16 12/16/21 08:36 BP 142/76 12/16/21 08:36 Pulse Ox 96 12/16/21 08:36 FiO2 Intake & Output 12/15/21 12/16/21 12/16/21 18:59 06:59 18:59 Intake Total 1740 Balance 1740 Weight 73.028 kg Intake: Intake, IV Titration 1200 Amount Sodium Chloride 0.9% 1, 1200 000 ml @ 100 mls/hr IV . Q10H [facility] Rx#:[id number] Oral 540 Other: Voiding Method Toilet Toilet # Voids 4 3 - Labs CBC & Chem 7: 12/16/21 06:06 12/16/21 06:06 Labs: Abnormal Lab Results - Last 24 Hours (Table) 12/12/21 12/16/21 12/16/21 Range/Units 09:58 06:06 06:06 RBC 3.60 L (4.10-5.20) X 10*6/uL Hgb 10.8 L (12.0-15.0) g/dL Hct 32.0 L (37.2-46.3) % Chloride 109 H (98-107) mmol/L Creatinine 1.13 H (0.52-1.04) mg/dL Vit D 1,25-Dihydroxy >200 H (20 - 79) pg/mL Microbiology - Last 24 Hours (Table) 12/14/21 11:35 Blood Culture - Preliminary Blood No Growth after 24 hours Assessment and Plan Plan: Assessment: 1. Acute kidney injury mostly prerenal secondary to hypercalcemia and hypokalemia. Improving. Creatinine 1.13 today. UA fairly benign. No hydronephrosis noted on CAT scan. Creatinine in January 2014 was 0.72. 2. Retroperitoneal mass status post biopsy. Oncology following. 3. Hypercalcemia of malignancy. Improving. PTH low at 17.3. TSH normal. Vitamin D level high at 135. 1,25 D3 >200. No evidence of sarcoidosis on chest x-ray. She was taking vitamin D at home which is now held. 4. Hypomagnesemia from poor intake. Replaced. Better. Plan: Maintain IV fluids - decrease rate to 50 mL an hour. Status post pamidronate given 12/12/2021. Follow up pending workup for hypercalcemia. Continue to monitor renal function and urine output. Continue to hold any calcium or vitamin D supplementation. Replace potassium and magnesium. Decrease dose of spironolactone to 50 mg once daily and hold for systolic blood pressure less than 120.
[2021-12-16] MEDS: DOCUSATE 100 MG CAP PO SCH ×2 (12:01→21:35)
[2021-12-16] MEDS: LACTULOSE 20 GM/30 ML CUP PO SCH ×4 (12:01→21:36)
[2021-12-16] MEDS: VENLAFAXINE HCL ER 150 MG CAP PO SCH (12:08)
[2021-12-16] MEDS: MAGNESIUM OXIDE 400 MG TAB PO SCH (12:09)
--- NOTE | 2021-12-16 12:39 | PN ---
PROGRESS NOTE SUBJECTIVE: This 71-year-old woman was admitted with acute hypercalcemia, also had retroperitoneal tumor. Final biopsy report is pending at this time. No chest pain, no palpitation. PHYSICAL EXAMINATION: VITAL SIGNS: Pulse 96, blood pressure 110/60, respirations 16. CHEST: Clear to auscultation. CARDIOVASCULAR SYSTEM: S1, S2. ABDOMEN: Soft, minimal discomfort. NERVOUS SYSTEM: No focal deficits. LABS: Reviewed, creatinine 1.24. ASSESSMENT: 1. Acute hypercalcemia. 2. Troponin, trend tumor, rule out lymphoma. 3. Status post biopsy. 4. Acute renal failure. 5. Hyperlipidemia. 6. Multiple medical issues. RECOMMENDATIONS: Recommended to continue current management low-grade fever has abated. Basic evaluation is negative, otherwise we will continue to monitor closely. Follow with Hematology Oncology. Further recommendations to follow. MMODL / IJN: [id number] / MTDD
--- NOTE | 2021-12-16 17:55 | P.PN ---
Subjective Progress Note Date: 12/16/21 Principal diagnosis: hypercalcemia, retroperitoneal mass in follow-up today patient is reporting discomfort in the back through the abdomen, pretty constant, pain meds don't quite resolve that but they certainly take the edge off. She has been taking medications to promote a bowel movement. Objective - Vital Signs Vital signs: Vital Signs Temp 97.6 F 12/16/21 11:15 Pulse 83 12/16/21 11:15 Resp 16 12/16/21 11:15 BP 148/79 12/16/21 11:15 Pulse Ox 94 L 12/16/21 11:15 FiO2 Intake & Output 12/15/21 12/16/21 12/16/21 18:59 06:59 18:59 Intake Total 1740 Output Total 2 Balance 1740 -2 Weight 73.028 kg Intake: Intake, IV Titration 1200 Amount Sodium Chloride 0.9% 1, 1200 000 ml @ 50 mls/hr IV . Q20H [facility] Rx#:[id number] Oral 540 Output: Urine 2 Other: Voiding Method Toilet Toilet Toilet # Voids 4 3 - Constitutional General appearance: Present: average body habitus, cooperative, no acute distress - EENT Eyes: Present: anicteric sclerae, EOMI ENT: Present: hearing grossly normal - Respiratory Details: respirations even and unlabored at rest - Peripheral edema leg Peripheral Edema: bilateral: None - Gastrointestinal General gastrointestinal: Present: normal bowel sounds, soft, tenderness. Absent: absent bowel sounds, decreased bowel sounds, distended, hepatomegaly, hyperactive bowel sounds, organomegaly, rigid, scaphoid, splenomegaly, umbilical hernia, ventral hernia - Neurologic Neurologic: Present: CNII-XII intact - Musculoskeletal Musculoskeletal: Present: strength equal bilaterally - Psychiatric Psychiatric: Present: A&O x's 3, appropriate affect, intact judgment & insight - Labs CBC & Chem 7: 12/16/21 06:06 12/16/21 06:06 Labs: Abnormal Lab Results - Last 24 Hours (Table) 12/12/21 12/16/21 12/16/21 Range/Units 09:58 06:06 06:06 RBC 3.60 L (4.10-5.20) X 10*6/uL Hgb 10.8 L (12.0-15.0) g/dL Hct 32.0 L (37.2-46.3) % Chloride 109 H (98-107) mmol/L Creatinine 1.13 H (0.52-1.04) mg/dL Vit D 1,25-Dihydroxy >200 H (20 - 79) pg/mL Microbiology - Last 24 Hours (Table) 12/14/21 11:35 Blood Culture - Preliminary Blood No Growth after 48 hours Assessment and Plan (1) Retroperitoneal mass Current Visit: Yes Status: Acute Code(s): R19.00 - INTRA-ABD AND PELVIC SWELLING, MASS AND LUMP, UNSP SITE SNOMED Code(s): 57062731 (2) Hypercalcemia Current Visit: Yes Status: Acute Code(s): E83.52 - HYPERCALCEMIA SNOMED Code(s): 41443338 (3) Constipation Current Visit: Yes Status: Acute Code(s): K59.00 - CONSTIPATION, UNSPECIFIED SNOMED Code(s): 84335486 Plan: Biopsy of retroperitoneal mass pending. Flow cytometry on peripheral blood suggestive of a lymphoma. This was discussed with the patient. Pending biopsy results. In anticipation of treatment with potentially cardiotoxic agents, ECHO for baseline cardiac function ordered. Patient has been on medications to promote bowel movement. X-ray of the abdomen has been ordered for assessment. Pain secondary to malignancy. Patient's pain is going to be challenging because it is from a mass. We will work with patient to determine a regimen that is adequate so that she is able to function. Treatment is going to be her best pain relief. Follow up with Medical Oncologist in the discharge plan. attests: I have seen and examined patient, performed H&P, developed impression and plan of care. Discussed with dictator. Agree with documentation, dictated as a scribe
--- NOTE | 2021-12-16 19:08 | XR ---
EXAMINATION TYPE: XR abdomen 2V DATE OF EXAM: 12/16/2021 COMPARISON: NONE HISTORY: Constipation TECHNIQUE: Supine and upright views FINDINGS: There is no sign of intestinal obstruction or pneumoperitoneum. Fecal pattern is normal. Hina ng bases are clear of consolidation. No pathologic calcification over the kidneys. IMPRESSION: Nonacute abdomen.
[2021-12-16] MEDS: oxyCODONE-APAP 5-325MG 1 EACH TAB PO PRN (21:39)
[2021-12-17] MEDS: oxyCODONE-APAP 5-325MG 1 EACH TAB PO PRN ×3 (05:14→21:46)
[2021-12-17] MEDS: SODIUM CHLORIDE 0.9% 1,000 ML IV SCH ×2 (05:16→09:52)
[2021-12-17] MEDS: LEVOTHYROXINE 100 MCG TAB PO SCH (05:16)
[2021-12-17 05:47] LABS: African American GFR (CKD) 57 (>60 ml/min/1.73 sqM); Anion Gap 9 mmol/L; Blood Urea Nitrogen 16 mg/dL (7-17); Calcium 9.5 mg/dL (8.4-10.2); Carbon Dioxide 24 mmol/L (22-30); Chloride 107 mmol/L (98-107); Glucose 80 mg/dL (74-99); Non-African American GFR(CKD) 49 (>60 ml/min/1.73 sqM); Potassium 3.7 mmol/L (3.5-5.1); Sodium 140 mmol/L (137-145)
[2021-12-17 09:01] LABS: Basophils # (A) 0 X 10*3/uL (0.00-0.10); Basophils % (A) 0 %; Eosinophils # (A) 0.46 X 10*3/uL (0.04-0.35); Eosinophils % (A) 7.1 %; HCT 29.7 % (37.2-46.3); HGB 10.4 g/dL (12.0-15.0); Immature Grans, Automated 0.3 %; Lymphocytes # (A) 1.97 X 10*3/uL (0.90-5.00); Lymphocytes % (A) 30.3 %; MCH 30.7 pg (27.0-32.0); MCV 87.6 fL (80.0-97.0); Mean Platelet Volume 10.3 fL (9.5-12.2); Monocytes # (A) 0.84 X 10*3/uL (0.20-1.00); Monocytes % (A) 12.9 %; NRBC Per 100 WBC 0 /100 WBCS (0.0-0.0); Neutrophils # (A) 3.21 X 10*3/uL (1.80-7.70); Neutrophils % (A) 49.4 %; Platelet Count 306 X 10*3/uL (140-440); RBC 3.39 X 10*6/uL (4.10-5.20); RDW 13.4 % (11.5-14.5)
[2021-12-17] MEDS: MAGNESIUM OXIDE 400 MG TAB PO SCH (09:08)
[2021-12-17] MEDS: LACTULOSE 20 GM/30 ML CUP PO SCH ×2 (09:08→11:49)
[2021-12-17] MEDS: DOCUSATE 100 MG CAP PO SCH ×2 (09:08→21:46)
[2021-12-17] MEDS: SPIRONOLACTONE 25 MG TAB PO SCH (09:09)
[2021-12-17] MEDS: SIMETHICONE 80 MG CHEWABLE PO SCH ×4 (09:09→21:46)
[2021-12-17 09:15] LABS: Albumin 3.2 g/dL (3.8-4.9); Magnesium 1.6 mg/dL (1.5-2.4)
--- NOTE | 2021-12-17 09:45 | PN ---
PROGRESS NOTE SUBJECTIVE: This is a 71-year-old woman, who was admitted with acute hypercalcemia, is improving significantly, but the final biopsy reports are pending at this time, possibly lymphoma. No chest pain. No palpitation. The patient complained of some back pain. PHYSICAL EXAMINATION: VITAL SIGNS: Pulse 83, blood pressure 140/70, respirations 16. HEENT: Conjunctivae normal. NECK: No JVD. CARDIOVASCULAR: S1, S2. RESPIRATIONS: Breath sounds diminished at the bases. ABDOMEN: Soft. NERVOUS SYSTEM: No focal deficits. LABS: Hemoglobin 10.8. The rest of the labs are noted. ASSESSMENT: 1. Acute hypercalcemia. 2. Acute retroperitoneal tumor, possibly lymphoma. 3. Status post biopsy. 4. Acute renal failure. 5. Hyperlipidemia. 6. Multiple medical issues. RECOMMENDATIONS: Recommend to continue current medications, symptomatic treatment. Otherwise, repeat labs in the morning and further recommendations to follow. MMODL / IJN: [id number] /
--- NOTE | 2021-12-17 09:59 | CA ---
Transthoracic Echo Report Name: Mercedes Cheng Age: 71 Gender: F : 1950 Exam Date: 12/17/2021 08:02 Exam Location: [facility] Ht (in): 67 Wt (lb): 161 Ordering Physician: Jennifer Hunter Attending/Referring Phys: Supply Analyst Vanessa Amaya RDCS Procedure CPT: Indications: baseline, cardiotoxic chemotherapy anticipated Cardiac Hx: Technical Quality: Good Contrast 1: Total Dose (mL): Contrast 2: Total Dose (mL): MEASUREMENTS (Male / Female) Normal Values 2D ECHO LV Diastolic Diameter PLAX 4.0 cm 4.2 - 5.9 / 3.9 - 5.3 cm LV Systolic Diameter PLAX 3.3 cm IVS Diastolic Thickness 1.0 cm 0.6 - 1.0 / 0.6 - 0.9 cm LVPW Diastolic Thickness 1.3 cm 0.6 - 1.0 / 0.6 - 0.9 cm LV Relative Wall Thickness 0.6 RV Internal Dim ED PLAX 3.7 cm LA Systolic Diameter LX 3.1 cm 3.0 - 4.0 / 2.7 - 3.8 cm LA Volume 31.8 cm??? 18 - 58 / 22 - 52 cm??? M-MODE Aortic Root Diameter MM 2.9 cm LA Systolic Diameter MM 3.5 cm LA Ao Ratio MM 1.2 MV E Point Septal Separation 0.5 cm AV Cusp Separation MM 1.8 cm DOPPLER MV Area PHT 3.4 cm??? Mitral E Point Velocity 43.6 cm/s Mitral A Point Velocity 69.7 cm/s Mitral E to A Ratio 0.6 MV Deceleration Time 224.5 ms MV E' Velocity 6.4 cm/s Mitral E to MV E' Ratio 6.8 TR Peak Velocity 207.4 cm/s TR Peak Gradient 17.2 mmHg Right Ventricular Systolic Press 21.9 mmHg FINDINGS Left Ventricle Left ventricular ejection fraction is estimated at 50-55 %. Right Ventricle Normal right ventricular size and function. Right Atrium Normal right atrial size. Left Atrium Normal left atrial size. Mitral Valve Structurally normal mitral valve. Trace to mild mitral regurgitation. Aortic Valve Trileaflet aortic valve. Tricuspid Valve Structurally normal tricuspid valve. Trace to mild tricuspid regurgitation. Pulmonic Valve Structurally normal pulmonic valve. Pericardium Normal pericardium. Aorta Normal size aortic root and proximal ascending aorta. CONCLUSIONS Normal left ventricular dimension and systolic function Previewed by: Dr. Marcso Biswas MD (Electronically Signed) Final Date: 17 December 2021 09:58
[2021-12-17] MEDS: MAGNESIUM SULFATE-D5W PMX 1 GM in DEXTROSE/WATER 1 100ML.BAG IVPB SCH ×2 (10:44→12:36)
[2021-12-17] MEDS ORDERED: POTASSIUM CHLORIDE ER 20 MEQ TAB.ER PO STA (10:50)
--- NOTE | 2021-12-17 10:51 | P.PN ---
Subjective Patient is seen in follow for acute kidney injury. Resting in bed. Receiving IV fluids. Good urine output. Renal function improved. Calcium level also stable. Denies chest pain or shortness of breath. Oral intake is improving. No vomiting or diarrhea. Vital signs are stable. General: Awake. No acute distress. HEENT: Head exam is unremarkable. LUNGS: Breath sounds decreased. HEART: Rate and Rhythm are regular. ABDOMEN: Soft, no distention. EXTREMITITES: No edema. Objective - Vital Signs Vital signs: Vital Signs Temp 98.5 F 12/17/21 07:24 Pulse 87 12/17/21 07:24 Resp 16 12/17/21 07:24 BP 119/66 12/17/21 07:24 Pulse Ox 97 12/17/21 07:24 FiO2 Intake & Output 12/16/21 12/17/21 12/17/21 18:59 06:59 18:59 Output Total 2 2 Balance -2 -2 Output: Urine 2 2 Other: Voiding Method Toilet Toilet # Voids 1 - Labs CBC & Chem 7: 12/17/21 04:48 12/17/21 04:48 Labs: Abnormal Lab Results - Last 24 Hours (Table) 12/17/21 12/17/21 12/17/21 Range/Units 04:48 04:48 04:48 RBC 3.39 L (4.10-5.20) X 10*6/uL Hgb 10.4 L (12.0-15.0) g/dL Hct 29.7 L (37.2-46.3) % Eosinophils # 0.46 H (0.04-0.35) X 10*3/uL Creatinine 1.14 H (0.52-1.04) mg/dL Albumin 3.2 L (3.8-4.9) g/dL Microbiology - Last 24 Hours (Table) 12/14/21 11:35 Blood Culture - Preliminary Blood No Growth after 48 hours Assessment and Plan Plan: Assessment: 1. Acute kidney injury mostly prerenal secondary to hypercalcemia and hypokalem ia. Improving. Creatinine 1.14 today. UA fairly benign. No hydronephrosis noted on CAT scan. Creatinine in January 2014 was 0.72. 2. Retroperitoneal mass status post biopsy. Concern for lymphoma. Oncology following. 3. Hypercalcemia of malignancy. Improving. PTH low at 17.3. TSH normal. Vitamin D level high at 135. 1,25 D3 >200. No evidence of sarcoidosis on chest x-ray. She was taking vitamin D at home which is now held. 4. Hypomagnesemia from poor intake. Being replaced. Plan: Maintain IV fluids. Status post pamidronate given 12/12/2021. Follow up pending workup for hypercalcemia. Continue to monitor renal function and urine output. Continue to hold any calcium or vitamin D supplementation. Replace potassium.
[2021-12-17] MEDS: VENLAFAXINE HCL ER 150 MG CAP PO SCH (12:36)
--- NOTE | 2021-12-17 14:20 | CT ---
EXAMINATION TYPE: CT chest wo con DATE OF EXAM: 12/17/2021 COMPARISON: Low-dose CT chest 07/19/2017 HISTORY: Lymphoma CT DLP: 286.70 mGycm, Automated exposure control for dose reduction was used. CONTRAST: Performed injected with 0 mL of Isovue 300. TECHNIQUE: Axial images were obtained at 5 mm thick sections. Reconstructed images are reviewed on t computer in the coronal plane. FINDINGS: Portion of the thyroid visualized is normal. No suspicious supraclavicular adenopathy. No suspicious axillary adenopathy. No enlarged mediastinal adenopathy. No suspicious lung nodules or focal infiltrates are present. There is a small left pleural effusion p resent. Very minimal right pleural effusion may be present. The ascending aorta diameter at the level of the main pulmonary artery is 3.4 cm. The main pulmonary artery diameter at the bifurcation is 2.[address] sections are obtained through the upper abdomen. Retrocrural adenopathy is present expandi ng the space and obscuring the aorta. Aortic calcification is noted. This extends into the large mass within the upper abdomen which within the field of view measures 15.5 x 10 cm. This extends out of t he field of view. This is displacing the kidneys laterally. IMPRESSIONS: 1. No suspicious adenopathy above the diaphragm. 2. Enlarged retrocrural and markedly enlarged adenopathy within the periaortic region
--- NOTE | 2021-12-17 17:26 | P.PN ---
Subjective Progress Note Date: 12/17/21 Principal diagnosis: hypercalcemia, retroperitoneal mass In follow-up today still no BM, back/abd discomfort is manageable on percocet. Ambulatory. Objective - Vital Signs Vital signs: Vital Signs Temp 98.3 F 12/17/21 11:12 Pulse 79 12/17/21 11:12 Resp 17 12/17/21 11:12 BP 119/75 12/17/21 11:12 Pulse Ox 96 12/17/21 11:12 FiO2 Intake & Output 12/16/21 12/17/21 12/17/21 18:59 06:59 18:59 Output Total 2 2 4 Balance -2 -2 -4 Output: Urine 2 2 4 Other: Voiding Method Toilet Toilet # Voids 1 - Constitutional General appearance: Present: average body habitus, cooperative, no acute distress - EENT Eyes: Present: anicteric sclerae, EOMI ENT: Present: hearing grossly normal - Respiratory Details: resp even and unlabored - Peripheral edema leg Peripheral Edema: bilateral: None - Integumentary Integumentary: Present: normal - Neurologic Neurologic: Present: CNII-XII intact - Musculoskeletal Musculoskeletal: Present: strength equal bilaterally - Psychiatric Psychiatric: Present: A&O x's 3, appropriate affect ( ), intact judgment & insight - Labs CBC & Chem 7: 12/17/21 04:48 12/17/21 04:48 Labs: Abnormal Lab Results - Last 24 Hours (Table) 12/17/21 12/17/21 12/17/21 Range/Units 04:48 04:48 04:48 RBC 3.39 L (4.10-5.20) X 10*6/uL Hgb 10.4 L (12.0-15.0) g/dL Hct 29.7 L (37.2-46.3) % Eosinophils # 0.46 H (0.04-0.35) X 10*3/uL Creatinine 1.14 H (0.52-1.04) mg/dL Albumin 3.2 L (3.8-4.9) g/dL Microbiology - Last 24 Hours (Table) 12/14/21 11:35 Blood Culture - Preliminary Blood No Growth after 72 hours Assessment and Plan (1) Retroperitoneal mass Current Visit: Yes Status: Acute Code(s): R19.00 - INTRA-ABD AND PELVIC SWELLING, MASS AND LUMP, UNSP SITE SNOMED Code(s): 74969139 (2) Hypercalcemia Current Visit: Yes Status: Acute Code(s): E83.52 - HYPERCALCEMIA SNOMED Code(s): 50023918 (3) Constipation Current Visit: Yes Status: Acute Code(s): K59.00 - CONSTIPATION, UNSPECIFIED SNOMED Code(s): 48504339 Plan: 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 Flow cytometry on peripheral blood positive for lymphoma. This was discussed with the patient. Pending MYC, BCL2 and 6 to determine if double or triple hit disease which does impact prognosis and treatment. ECHO LVEF 50-55%. X-ray of the abdomen no stool burden. More aggressive bowel regimen. Pain secondary to malignancy. Patient's pain is going to be challenging because it is from a mass, will improve more with treatment. She reports percocet adequate. Rx sent to [facility], enough to get pt to her appt. Follow up with Medical Oncologist in the discharge plan.
[2021-12-17 17:53] VITALS: RESP 18
[2021-12-18 04:49] VITALS: BP 125/62; PULSE 74; TEMP 98.1
[2021-12-18] MEDS: oxyCODONE-APAP 5-325MG 1 EACH TAB PO PRN (05:42)
[2021-12-18] MEDS: LEVOTHYROXINE 100 MCG TAB PO SCH (05:42)
[2021-12-18] MEDS: MAGNESIUM OXIDE 400 MG TAB PO SCH (08:07)
[2021-12-18] MEDS: SIMETHICONE 80 MG CHEWABLE PO SCH ×2 (08:07→13:04)
[2021-12-18] MEDS: DOCUSATE 100 MG CAP PO SCH (08:07)
[2021-12-18] MEDS: SPIRONOLACTONE 25 MG TAB PO SCH (08:08)
[2021-12-18] MEDS: SODIUM CHLORIDE 0.9% 1,000 ML IV SCH (08:08)
[2021-12-18 09:11] LABS: Magnesium 1.7 mg/dL (1.5-2.4)
[2021-12-18 09:15] LABS: Anion Gap 10.3 mmol/L (10.00-18.00); BUN/Creat Ratio 12.83 Ratio (12.00-20.00); Blood Urea Nitrogen 13.6 mg/dL (9.0-27.0); Carbon Dioxide 25.5 mmol/L (20.0-27.5); Non-African American GFR(CKD) 53.5 (60.0-200.0); Potassium 3.7 mmol/L (3.5-5.5)
[2021-12-18 10:23] LABS: Basophils # (A) 0 X 10*3/uL (0.00-0.10); Basophils % (A) 0 %; Eosinophils # (A) 0.46 X 10*3/uL (0.04-0.35); Eosinophils % (A) 6.8 %; HCT 30.1 % (37.2-46.3); Immature Grans, Automated 0.3 %; Lymphocytes # (A) 1.97 X 10*3/uL (0.90-5.00); MCH 29.9 pg (27.0-32.0); MCHC 33.2 g/dL (32.0-37.0); MCV 90.1 fL (80.0-97.0); Mean Platelet Volume 10.3 fL (9.5-12.2); Monocytes # (A) 0.87 X 10*3/uL (0.20-1.00); Monocytes % (A) 12.8 %; NRBC Per 100 WBC 0 /100 WBCS (0.0-0.0); Neutrophils # (A) 3.47 X 10*3/uL (1.80-7.70); Neutrophils % (A) 51.1 %; Platelet Count 278 X 10*3/uL (140-440); RBC 3.34 X 10*6/uL (4.10-5.20); RDW 13.2 % (11.5-14.5); WBC 6.79 X 10*3/uL (4.50-10.00)
[2021-12-18] MEDS ORDERED: POTASSIUM CHLORIDE ER 20 MEQ TAB.ER PO STA (11:34)
[2021-12-18] MEDS ORDERED: MAGNESIUM SULFATE-D5W PMX 1 GM in DEXTROSE/WATER 1 100ML.BAG IVPB ONE (11:35)
--- NOTE | 2021-12-18 11:35 | P.PN ---
Subjective Patient is seen in follow for acute kidney injury. Resting in bed. Receiving IV fluids. Good urine output. Renal function improved. Calcium level also better. Denies chest pain or shortness of breath. Oral intake is good. No vomiting or diarrhea. Vital signs are stable. General: Awake. No acute distress. HEENT: Head exam is unremarkable. LUNGS: Breath sounds decreased. HEART: Rate and Rhythm are regular. ABDOMEN: Soft, no distention. EXTREMITITES: No edema. Objective - Vital Signs Vital signs: Vital Signs Temp 98.1 F 12/18/21 04:48 Pulse 74 12/18/21 04:48 Resp 18 12/17/21 20:00 BP 125/62 12/18/21 04:48 Pulse Ox 96 12/18/21 04:48 FiO2 Intake & Output 12/17/21 12/18/21 12/18/21 18:59 06:59 18:59 Intake Total 800 590 Output Total 5 0 Balance 795 590 Intake: Intake, IV Titration 800 Amount Magnesium Sulfate-D5w Pmx 200 1 gm In Dextrose/Water 1 100ml.bag @ 100 mls/hr IVPB Q1H [facility] Rx#: [id number] Sodium Chloride 0.9% 1, 600 000 ml @ 50 mls/hr IV . Q20H [facility] Rx#:[id number] Oral 590 Output: Urine 5 Stool 0 Other: Voiding Method Toilet # Voids 2 1 - Labs CBC & Chem 7: 12/18/21 05:40 12/18/21 05:40 Labs: Abnormal Lab Results - Last 24 Hours (Table) 12/18/21 12/18/21 Range/Units 05:40 05:40 RBC 3.34 L (4.10-5.20) X 10*6/uL Hgb 10.0 L (12.0-15.0) g/dL Hct 30.1 L (37.2-46.3) % Eosinophils # 0.46 H (0.04-0.35) X 10*3/uL Est GFR (CKD-EPI)NonAf 53.5 L (60.0-200.0) Albumin 3.0 L (3.8-4.9) g/dL Microbiology - Last 24 Hours (Table) 12/14/21 11:35 Blood Culture - Preliminary Blood No Growth after 72 hours Assessment and Plan Plan: Assessment: 1. Acute kidney injury mostly prerenal secondary to hypercalcemia and hypokalemia. Improving. Creatinine 1.1 today. UA fairly benign. No hydr onephrosis noted on CAT scan. Creatinine in January 2014 was 0.72. 2. Retroperitoneal mass status post biopsy. Concern for lymphoma. Oncology following. 3. Hypercalcemia of malignancy. Improved. PTH low at 17.3. TSH normal. Vitamin D level high at 135. 1,25 D3 >200. No evidence of sarcoidosis on chest x-ray. She was taking vitamin D at home which is now held. 4. Hypomagnesemia from poor intake. Being replaced. Plan: Maintain gentle IV hydration. Status post pamidronate given 12/12/2021. Continue to hold any calcium or vitamin D supplementation. Replace electrolytes per protocol.
[2021-12-18] MEDS: VENLAFAXINE HCL ER 150 MG CAP PO SCH (11:49)
--- NOTE | 2021-12-18 12:31 | PN ---
PROGRESS NOTE SUBJECTIVE: This 71-year-old woman was admitted with retroperitoneal mass, possible lymphoma, is being closely monitored. Patient complains of some back pain and discomfort also. No chest pain or palpitation. PHYSICAL EXAMINATION: VITAL SIGNS: Pulse is 87, blood pressure , respirations 16. HEENT: Conjunctivae normal. NECK: No JVD. CARDIOVASCULAR: S1, S2. RESPIRATIONS: Breath sounds diminished at the bases. No rhonchi. No crackles. ABDOMEN: Soft. Diffuse discomfort. LABORATORY DATA: Labs are reviewed. ASSESSMENT: 1. Acute hypercalcemia. 2. Acute retroperitoneal tumor, possibly lymphoma. 3. Status post biopsy. 4. Acute renal failure. 5. Multiple medical issues. RECOMMENDATION: This 71-year-old woman presented with multiple complex medical issues. We will monitor the patient closely. The patient is still symptomatic, awaiting biopsy. The patient is complaining of back pain. Abdominal x-ray, which was done yesterday, reviewed personally by me, showed no other abnormality. I would also recommend a CT scan of the chest to complete the workup. Prognosis is guarded. Further recommendations to follow. MMODL / IJN: [id number] /
--- NOTE | 2021-12-19 09:59 | DS ---
DISCHARGE SUMMARY FINAL DIAGNOSES: 1. Acute hypercalcemia from lymphoma. 2. Acute retroperitoneal tumor, possibly B-cell lymphoma. 3. Status post biopsy. 4. Acute renal failure. 5. Multiple medical issues. DISCHARGE DISPOSITION: The patient will be discharged in stable condition. Guarded prognosis. HISTORY OF PRESENT ILLNESS: This is a 71-year-old woman with a past history of multiple medical problems admitted with hypercalcemia as well as retroperitoneum tumor. Evaluation biopsy showed B-cell lymphoma. Oncology saw the patient and recommend outpatient followup and chemotherapy. Otherwise, the patient also had hypercalcemia and renal failure, which were managed in conjunction with Nephrology. Overall, the patient made significant improvement. The patient will be discharged on following advice and medications. PHYSICAL EXAMINATION: VITAL SIGNS: Stable. CARDIOVASCULAR: S1 and S2. ABDOMEN: Soft. NERVOUS SYSTEM: Nonfocal. DISCHARGE ADVICE AND MEDICATIONS: The patient will be continued on pain medications and continue the rest of home medications, aldactone, and follow up with Dr. Gupta. Monitor creatinine and calcium closely in the outpatient setting and further recommendations to follow. See discharge medication reconciliation sheet for list of medications. The rest of the recommendations per Oncology. MMODL / IJN: [id number] /
== END 2021-12-18 13:30 | disposition home or self-care (01) | DRG 821 ==
LOC: EC 13:07 → 5NMEDONC 16:57
PROVIDERS: ADMIT Hospitalist; ATTEND Hospitalist
PROC: 0W9H3ZX Drainage of Retroperitoneum, Percutaneous Approach, Diagnostic (ICD-10-PCS; principal; 2021-12-12)
DX: C85.13 Unspecified B-cell lymphoma, intra-abdominal lymph nodes (principal); N17.9 Acute kidney failure, unspecified; E03.9 Hypothyroidism, unspecified; K58.9 Irritable bowel syndrome, unspecified; E78.5 Hyperlipidemia, unspecified; R19.09 Other intra-abdominal and pelvic swelling, mass and lump; E83.42 Hypomagnesemia; E83.52 Hypercalcemia; E86.1 Hypovolemia; E87.6 Hypokalemia; I08.1 Rheumatic disorders of both mitral and tricuspid valves; K59.00 Constipation, unspecified; Z79.890 Hormone replacement therapy; Z90.49 Acquired absence of other specified parts of digestive tract; Z90.710 Acquired absence of both cervix and uterus; Z88.0 Allergy status to penicillin; Z91.013 Allergy to seafood
CPT/HCPCS: 36415; 49180; 71045; 71250; 74019; 74176; 77012; 80048; 80053; 80074; 81001; 82040; 82150; 82306; 82330; 82652; 83615; 83690; 83735; 83970; 84100; 84443; 84550; 85025; 85610; 85652; 86140; 86334; 87040; 87535; 88184; 88185; 88305; 88341; 88342; 93005; 93306; 96361; 96372; 96374; 96375; 96376; 99285

== ENCOUNTER → 2021-12-22 | Outpatient (CLI) | payer MEDICARE ==
[2021-12-22 17:55] LABS: Basophils # (A) 0.01 X 10*3/uL (0.00-0.10); Basophils % (A) 0.1 %; Eosinophils # (A) 0.37 X 10*3/uL (0.04-0.35); Eosinophils % (A) 4.9 %; HGB 11.6 g/dL (12.0-15.0); Immature Grans, Automated 0.4 %; Lymphocytes # (A) 1.49 X 10*3/uL (0.90-5.00); Lymphocytes % (A) 19.9 %; MCH 30.5 pg (27.0-32.0); MCHC 33.1 g/dL (32.0-37.0); MCV 92.1 fL (80.0-97.0); Mean Platelet Volume 10.6 fL (9.5-12.2); Monocytes # (A) 0.81 X 10*3/uL (0.20-1.00); Monocytes % (A) 10.8 %; NRBC Per 100 WBC 0 /100 WBCS (0.0-0.0); Neutrophils # (A) 4.78 X 10*3/uL (1.80-7.70); Neutrophils % (A) 63.9 %; Platelet Count 410 X 10*3/uL (140-440); RDW 13.4 % (11.5-14.5); WBC 7.49 X 10*3/uL (4.50-10.00)
[2021-12-22 18:15] LABS: African American GFR (CKD) 55.1 (60.0-200.0); BUN/Creat Ratio 17.61 Ratio (12.00-20.00); Blood Urea Nitrogen 20.6 mg/dL (9.0-27.0); Calcium 10.6 mg/dL (8.7-10.3); Non-African American GFR(CKD) 47.5 (60.0-200.0); Potassium 4.1 mmol/L (3.5-5.5)
== END | disposition home or self-care (01) ==
LOC: LABWHC1 13:18
PROVIDERS: ATTEND Hospitalist
DX: C85.10 Unspecified B-cell lymphoma, unspecified site (principal)
CPT/HCPCS: 36415; 80048; 85025

== ENCOUNTER 2021-12-25 11:22 | Day surgery (SDC) | payer MEDICARE ==
[2021-12-23 12:19] VITALS: BMI 25.2
[~2021-12-25 11:22] MED LIST: ACETAMINOPHEN TAB 500 MG TAB PO PRN; DEXAMETHASONE SOD PHOSPHATE 4 MG/ML 1 ML VIAL IV ONE; HEPARIN SODIUM,PORCINE/PF 5,000 UNIT/0.5 ML SYRINGE SQ PRN; HYDROmorphone 0.5 MG/0.5 ML SYRINGE IVP PRN; ONDANSETRON 4 MG/2 ML VIAL IVP ONE; Pre Op ABX Message 1 EACH MISC MISCELLANE ONE
[2021-12-25] MEDS ORDERED: ONDANSETRON 4 MG/2 ML VIAL ONE (11:48)
[2021-12-25] MEDS: LACTATED RINGERS 1,000 ML IV SCH ×2 (11:59→14:05)
[2021-12-25] MEDS ORDERED: ONDANSETRON 4 MG/2 ML VIAL IVP ONE (12:03)
[2021-12-25] MEDS ORDERED: DEXAMETHASONE SOD PHOSPHATE 4 MG/ML 1 ML VIAL IVP ONE (12:04)
[2021-12-25] MEDS ORDERED: SCOPOLAMINE 1 MG/72 HR PATCH TRANSDERM ONE (12:12)
[2021-12-25] MEDS ORDERED: LIDOCAINE 2% INJ 20 MG/ML (2 ML VIAL) ONE (14:00)
[2021-12-25] MEDS ORDERED: PROPOFOL 10 MG/ML 20 ML VIAL IV ONE (14:00)
[2021-12-25] MEDS ORDERED: HYDROmorphone (PF) 1 MG/ML ONE (14:00)
[2021-12-25] MEDS ORDERED: fentaNYL (PF) 50 MCG/ML 2 ML AMP ONE (14:00)
[2021-12-25] MEDS ORDERED: MIDAZOLAM 2 MG/2 ML VIAL ONE (14:00)
--- NOTE | 2021-12-25 14:19 | P.GSHP ---
History of Present Illness H&P Date: 12/25/21 71-year-old female here today for Port-A-Cath placement. Patient recently diagnosed with lymphoma. Starting chemotherapy in the next 1-2 weeks. She has not had a port previously. Past Medical History Past Medical History: Cancer, Hyperlipidemia, Osteoarthritis (OA), Renal Disease, Skin Disorder, Thyroid Disorder Additional Past Medical History / Comment(s): Acne. Chronic Kidney Disease Stage 2-3. Chronic neck and back pain. Current Lymphoma. History of Any Multi-Drug Resistant Organisms: None Reported Past Surgical History: Cholecystectomy, Hysterectomy, Orthopedic Surgery Additional Past Surgical History / Comment(s): PARTIAL THYROIDECTOMY, LEFT ROTATOR CUFF REPAIR, left knee arthroscopy X2, right hand surgery. Past Anesthesia/Blood Transfusion Reactions: Motion Sickness, Postoperative Nausea & Vomiting (PONV) Past Psychological History: Depression Smoking Status: Former smoker Past Alcohol Use History: None Reported Additional Past Alcohol Use History / Comment(s): Quit smoking in 2007. Past Drug Use History: None Reported - Past Family History Mother Sister(s) Family Medical History: Cancer Medications and Allergies Home Medications Medication Instructions Recorded Confirmed Type Levothyroxine Sodium [Synthroid] 100 mcg PO QAM 09/07/14 12/25/21 History Vitamin B Complex 1 cap PO DAILY 09/07/14 12/25/21 History Spironolactone [Aldactone] 100 mg PO DAILY 12/11/21 12/25/21 History Venlafaxine HCl ER [Effexor XR] 150 mg PO AC-LUNCH 12/11/21 12/25/21 History Lactulose [Cephulac] 20 gm PO BID PRN #300 ml 12/18/21 12/25/21 Rx Hydrocodone (Unknown Dose) 1 tab PO HS 12/23/21 12/25/21 History Allergies Allergy/AdvReac Type Severity Reaction Status Date / Time Penicillins Allergy Unknown, + Verified 12/25/21 11:44 allergy testing as a child shrimp Allergy Rash/Hives Verified 12/25/21 11:44 around mouth Surgical - Exam Vital Signs Temp Pulse Resp BP Pulse Ox 98.4 F 98 16 154/76 98 12/25/21 11:45 12/25/21 11:45 12/25/21 11:45 12/25/21 11:45 12/25/21 11:45 Physical exam: General: Well-developed, well-nourished HEENT: Normocephalic, sclerae nonicteric Abdomen: Nontender, nondistended Extremities: No edema Neuro: Alert and oriented Assessment and Plan (1) Lymphoma Narrative/Plan: 71-year-old female with recent diagnosis of lymphoma. We'll proceed with Port-A-Cath placement at this time. Risks of bleeding, infection, DVT, pneumothorax, catheter malfunction, anesthesia related complications were discussed. The patient understands and wishes to proceed. Current Visit: Yes Status: Acute Code(s): C85.90 - NON-HODGKIN LYMPHOMA, UNSPECIFIED, UNSPECIFIED SITE SNOMED Code(s): 224493340
[2021-12-25] MEDS ORDERED: LIDOCAINE 1% INJ 10MG/ML (20 ML MDV) SQ ONE (14:35)
--- NOTE | 2021-12-25 15:08 | FL ---
EXAMINATION TYPE: FL guided central line placemt HISTORY: Fluoroscopy time Impression: 1. Fluoroscopy support provided to the referring physician.
[2021-12-25 15:10] VITALS: TEMP 97.8
[2021-12-25] MEDS ORDERED: NALOXONE 0.4 MG/ML 1 ML VIAL IV PRN (15:16)
--- NOTE | 2021-12-25 15:21 | P.OP ---
Date of Procedure: 12/25/21 Procedure(s) Performed: PREOPERATIVE DIAGNOSIS: Lymphoma POSTOPERATIVE DIAGNOSIS: Same PROCEDURE: Port-A-Cath placement with fluoroscopic and ultrasound guidance SURGEON: Aniket EBL: Minimal ANESTHESIA: General COMPLICATIONS: None OPERATIVE PROCEDURE: Patient was brought and placed on the operative table in the supine position. The patient was sedated per anesthesia that time. The chest and neck were prepped and draped in usual sterile fashion. The ultrasound probe was used to identify the location of the right internal jugular vein. The skin was localized with lidocaine. The Seldinger needle was advanced into the IJ under ultrasound guidance. The wire was advanced through the needle under fluoroscopic guidance into the superior vena cava. A port pocket was created in the right infraclavicular location. The catheter was tunneled from the wire entrance site to the port pocket. The port was then connected to the catheter. The dilator introducer was threaded over the guidewire. The guidewire and dilator were then removed. The catheter was advanced through the introducer and introducer was then removed. The tip was seen to be in the right atrial junction via fluoroscopy. A picture of the radiograph showing the tip at the radial digital junction was taken. Port was flushed with both saline and a Hep- Lock solution. There was good flow both in and out of the port. The port was sutured in underlying tissues using 3-0 silk sutures. The subcutaneous tissues were reapproximated using 3-0 Vicryl sutures and the skin at both locations using 4-0 Monocryl sutures. Skin glue and sterile dressings then applied. DISPOSITION: Stable to recovery room
--- NOTE | 2021-12-25 16:03 | XR ---
EXAMINATION TYPE: XR chest 1V confirm line plcla DATE OF EXAM: 12/25/2021 COMPARISON: 12/14/2021 HISTORY: Line placement TECHNIQUE: Single frontal view of the chest is obtained. FINDINGS: A Port-A-Cath is seen with tip overlying the SVC. Hyperinflation suggests COPD. Arthropath y of the shoulders. Subsegmental changes bilateral lung bases. Hypertrophic and degenerative changes of the spine. Small bilateral effusions. Surgical clips in the upper abdomen. IMPRESSION: 1. MediPort catheter overlying the SVC and no sizable pneumothorax. 2. Bibasilar atelectasis favored over infiltrate correlate clinically.
[2021-12-25] MEDS ORDERED: LACTATED RINGERS 1,000 ML IV ONE (16:15)
[2021-12-25 16:24] VITALS: RESP 16
[2021-12-25 16:57] VITALS: BP 112/69; PULSE 95
== END 2021-12-25 17:21 | disposition home or self-care (01) ==
LOC: OR 11:22
PROVIDERS: ATTEND Surgery
DX: C85.90 Non-Hodgkin lymphoma, unspecified, unspecified site (principal); E78.5 Hyperlipidemia, unspecified; M19.90 Unspecified osteoarthritis, unspecified site; Z87.2 Personal history of diseases of the skin and subcutaneous tissue; N18.30 Chronic kidney disease, stage 3 unspecified; F32.A Depression, unspecified; Z45.2 Encounter for adjustment and management of vascular access device; Z87.891 Personal history of nicotine dependence; Z88.0 Allergy status to penicillin; Z90.49 Acquired absence of other specified parts of digestive tract; Z79.890 Hormone replacement therapy; Z79.899 Other long term (current) drug therapy; Z91.013 Allergy to seafood
CPT/HCPCS: 36561; 76937; 77001; C1788; J2250; J1100; J2405; J2001 ×2; J3010; J1170; J2704; J1644

== ENCOUNTER 2022-01-17 15:57 | Inpatient (IN) | payer MEDICARE ==
[2022-01-17] MEDS ORDERED: ONDANSETRON 4 MG/2 ML VIAL IVP STA (16:04)
[2022-01-17] MEDS ORDERED: SODIUM CHLORIDE 0.9% 1,000 ML IV STA ×2 (16:04→17:49)
--- NOTE | 2022-01-17 16:45 | ED ---
General Adult HPI - General Chief complaint: Weakness Stated complaint: vomitting Time Seen by Provider: 01/17/22 16:04 Source: patient, RN notes reviewed Mode of arrival: ambulatory Limitations: no limitations - History of Present Illness Initial comments: Patient is a pleasant 71-year-old female presenting to the emergency room with complaints of generalized fatigue and nausea ongoing since her first chemo treatment approximately 2 weeks ago and over the last week she has had increase in nausea with multiple episodes of vomiting along with dizziness. This morning she had a loose bowel movement with blood; she has not previously had any diarrhea and prior to her recent oncologic diagnosis she had severe constipation. She had presented to the emergency room on 12/11/2021 for complaints of severe constipation and was found to have a mass and underwent workup and was subsequently diagnosed with diffuse large B-cell lymphoma. She had her port placed on 12/25/2021 and had her first chemotherapy infusion approximately 2 weeks ago as stated above which overall she tolerated well. She obtained her flu vaccine approximately 1 week ago. In addition to her lymphoma diagnosis she has a past medical history significant for hypothyroidism and hyperlipidemia. - Related Data Home Medications Medication Instructions Recorded Confirmed Levothyroxine Sodium [Synthroid] 100 mcg PO QAM 09/07/14 12/25/21 Spironolactone [Aldactone] 100 mg PO DAILY 12/11/21 12/25/21 Venlafaxine HCl ER [Effexor XR] 150 mg PO AC-LUNCH 12/11/21 12/25/21 Clobetasol Propionate [Clobex 1 applic TOPICAL HS PRN 01/17/22 01/17/22 [place] 0.05%] Ketoconazole 2% Cream [Nizoral 2%] 1 applic TOPICAL BID PRN 01/17/22 01/17/22 Ondansetron Odt [Zofran Odt] 8 mg PO Q8H PRN 01/17/22 01/17/22 Prochlorperazine [Compazine] 10 mg PO Q6H 01/17/22 01/17/22 Sennosides/Docusate Sodium [Senna 1 - 2 tab PO BID PRN 01/17/22 01/17/22 Plus 8.6-50 mg Tablet] allopurinoL 300 mg PO DAILY 01/17/22 01/17/22 oxyCODONE-APAP 7.5-325MG [Percocet 1 tab PO Q4H PRN 01/17/22 01/17/22 7.5-325 mg] predniSONE [Deltasone] 100 mg PO DIRECTED 01/17/22 01/17/22 Previous Rx's Medication Instructions Recorded Lactulose [Cephulac] 20 gm PO BID PRN #300 ml 12/18/21 Allergies Allergy/AdvReac Type Severity Reaction Status Date / Time Penicillins Allergy Unknown, + Verified 01/17/22 16:02 allergy testing as a child shrimp Allergy Rash/Hives Verified 01/17/22 16:02 around mouth Review of Systems ROS Statement: Those systems with pertinent positive or pertinent negative responses have been documented in the HPI. ROS Other: All systems not noted in ROS Statement are negative. Past Medical History Past Medical History: Hyperlipidemia, Thyroid Disorder Additional Past Medical History / Comment(s): Diffuse large b cell lymphoma dx 11/2021 History of Any Multi-Drug Resistant Organisms: None Reported Past Surgical History: Cholecystectomy, Hysterectomy, Orthopedic Surgery Additional Past Surgical History / Comment(s): PARTIAL THYROIDECTOMY. LT ROTATOR CUFF REPAIRED. Past Anesthesia/Blood Transfusion Reactions: Motion Sickness Past Psychological History: Depression Smoking Status: Never smoker Past Alcohol Use History: None Reported Past Drug Use History: None Reported - Past Family History Mother Sister(s) Family Medical History: Cancer General Exam Limitations: no limitations General appearance: alert, in no apparent distress Head exam: Present: atraumatic, normocephalic, normal inspection Eye exam: Present: normal appearance, PERRL, EOMI. Absent: scleral icterus, conjunctival injection, periorbital swelling ENT exam: Present: normal exam, mucous membranes moist Neck exam: Present: normal inspection, full ROM Respiratory exam: Present: normal lung sounds bilaterally. Absent: respiratory distress, wheezes, rales, rhonchi, stridor Cardiovascular Exam: Present: normal rhythm, tachycardia, normal heart sounds. Absent: systolic murmur, diastolic murmur, rubs, gallop, clicks GI/Abdominal exam: Present: soft, tenderness (Bilateral lower quadrant). Absent: distended, rigid Rectal exam: Present: deferred Extremities exam: Present: normal inspection. Absent: pedal edema, joint swelling Back exam: Present: normal inspection Neurological exam: Present: alert, oriented X3, CN II-XII intact Psychiatric exam: Present: normal affect, normal mood Skin exam: Present: warm, dry, intact, normal color. Absent: rash Course Vital Signs 01/17/22 16:00 Temperature 98.0 F Pulse Rate 129 H Respiratory 20 Rate Blood Pressure 104/66 O2 Sat by Pulse 100 Oximetry Medical Decision Making - Medical Decision Making 71-year-old female presenting to the emergency room with generalized weakness, nausea, vomiting, diarrhea and dizziness which began after her first chemotherapy treatment 2 weeks ago and is progressively worsened. Also with episode of bloody stool. Due to episode of bloody stool obtain computed tomography scan of the abdomen however given recent diagnostic imaging will contrast at this time. Will obtain EKG on exam along with CBC, CMP, mag museum, lactic acid, urinalysis, influenza and COVID swab. Will give 1 L fluid bolus and Zofran. Will monitor. Laboratory studies reveal electrolyte derangement along with elevated liver enzymes, mildly elevated BUN and creatinine, and elevated lactic acid at 7.4. Will give additional 1 L bolus of IV fluid. COVID and influenza swabs negative. CT of the abdomen redemonstrates retroperitoneal mass without evidence of interval change since last exam. No evidence of free fluid or free air in the abdomen. Findings discussed with spouse and patient at the bedside. Will need admission for IV hydration and further monitoring. Discussed case with [facility] from [facility] accepting of admission; will place oncology on consult. Case discussed with Dr. Lee. - Lab Data Result diagrams: 01/17/22 16:29 01/17/22 16:29 Lab Results 01/17/22 01/17/22 01/17/22 Range/Units 16:29 16:29 16:29 WBC 7.0 (3.8-10.6) k/uL RBC 4.56 (3.80-5.40) m/uL Hgb 14.1 (11.4-16.0) gm/dL Hct 39.4 (34.0-46.0) % MCV 86.4 D (80.0-100.0) fL MCH 30.8 (25.0-35.0) pg MCHC 35.7 (31.0-37.0) g/dL RDW 13.5 (11.5-15.5) % Plt Count 333 (150-450) k/uL MPV 8.8 Neutrophils % (Manual) 74 % Band Neuts % (Manual) 16 % Lymphocytes % (Manual) 4 % Monocytes % (Manual) 7 % Metamyelocytes % 1 % Neutrophils # (Manual) 6.30 (1.3-7.7) k/uL Lymphocytes # (Manual) 0.28 L (1.0-4.8) k/uL Monocytes # (Manual) 0.49 (0-1.0) k/uL Metamyelocytes # (Man) 0.07 H (0) k/uL Nucleated RBCs 0 (0-0) /100 WBC Manual Slide Review Performed Sodium 132 L (137-145) mmol/L Potassium 5.7 H (3.5-5.1) mmol/L Chloride 89 L (98-107) mmol/L Carbon Dioxide 23 (22-30) mmol/L Anion Gap 20 mmol/L BUN 26 H (7-17) mg/dL Creatinine 1.23 H (0.52-1.04) mg/dL Est GFR (CKD-EPI)AfAm 52 (>60 ml/min/1.73 sqM) Est GFR (CKD-EPI)NonAf 45 (>60 ml/min/1.73 sqM) Glucose 214 H (74-99) mg/dL Plasma Lactic Acid Jose 7.5 H* (0.7-2.0) mmol/L Calcium 11.3 H (8.4-10.2) mg/dL Phosphorus 4.3 (2.5-4.5) mg/dL Magnesium 2.6 H (1.6-2.3) mg/dL Total Bilirubin 0.7 (0.2-1.3) mg/dL AST 78 H (14-36) U/L ALT 223 H (4-34) U/L Alkaline Phosphatase 158 H (38-126) U/L Troponin I (0.000-0.034) ng/mL Total Protein 6.8 (6.3-8.2) g/dL Albumin 4.1 (3.5-5.0) g/dL Coronavirus (PCR) (Not Detectd) Influenza Type A RNA (Not Detectd) Influenza Type B (PCR) (Not Detectd) 01/17/22 01/17/22 01/17/22 Range/Units 16:29 16:47 16:47 WBC (3.8-10.6) k/uL RBC (3.80-5.40) m/uL Hgb (11.4-16.0) gm/dL Hct (34.0-46.0) % MCV (80.0-100.0) fL MCH (25.0-35.0) pg MCHC (31.0-37.0) g/dL RDW (11.5-15.5) % Plt Count (150-450) k/uL MPV Neutrophils % (Manual) % Band Neuts % (Manual) % Lymphocytes % (Manual) % Monocytes % (Manual) % Metamyelocytes % % Neutrophils # (Manual) (1.3-7.7) k/uL Lymphocytes # (Manual) (1.0-4.8) k/uL Monocytes # (Manual) (0-1.0) k/uL Metamyelocytes # (Man) (0) k/uL Nucleated RBCs (0-0) /100 WBC Manual Slide Review Sodium (137-145) mmol/L Potassium (3.5-5.1) mmol/L Chloride (98-107) mmol/L Carbon Dioxide (22-30) mmol/L Anion Gap mmol/L BUN (7-17) mg/dL Creatinine (0.52-1.04) mg/dL Est GFR (CKD-EPI)AfAm (>60 ml/min/1.73 sqM) Est GFR (CKD-EPI)NonAf (>60 ml/min/1.73 sqM) Glucose (74-99) mg/dL Plasma Lactic Acid Jose (0.7-2.0) mmol/L Calcium (8.4-10.2) mg/dL Phosphorus (2.5-4.5) mg/dL Magnesium (1.6-2.3) mg/dL Total Bilirubin (0.2-1.3) mg/dL AST (14-36) U/L ALT (4-34) U/L Alkaline Phosphatase (38-126) U/L Troponin I <0.012 (0.000-0.034) ng/mL Total Protein (6.3-8.2) g/dL Albumin (3.5-5.0) g/dL Coronavirus (PCR) Not Detected (Not Detectd) Influenza Type A RNA Not Detected (Not Detectd) Influenza Type B (PCR) Not Detected (Not Detectd) - EKG Data EKG Comments: Sinus tachycardia, ventricular rate 119 bpm, TX interval 133 ms, QRS duration 89 ms, QT/QTC 292/362 ms, PRT axes 67, -4, 50 - Radiology Data Radiology results: report reviewed, image reviewed CT the abdomen and pelvis without contrast impression: Large retroperitoneal mass consistent with tumor. This is consistent with lymphoma and has not significant the different compared to old exam. No ascites or free air. No sign of bowel obstruction. Liver and spleen are intact with no common bile duct dilatation. Disposition Clinical Impression: Elevated lactic acid level, Dehydration, Nausea & vomiting Disposition: ADMITTED IP TO THIS HOSP Condition: Stable Is patient prescribed a controlled substance at d/c from ED?: No Time of Disposition: 18:48
[2022-01-17 16:59] LABS: HCT 39.4 % (34.0-46.0); HGB 14.1 gm/dL (11.4-16.0); MCH 30.8 pg (25.0-35.0); MCHC 35.7 g/dL (31.0-37.0); Mean Platelet Volume 8.8; Platelet Count 333 k/uL (150-450); RBC 4.56 m/uL (3.80-5.40); RDW 13.5 % (11.5-15.5)
[2022-01-17 17:04] LABS: Albumin 4.1 g/dL (3.5-5.0); Calcium 11.3 mg/dL (8.4-10.2); Magnesium 2.6 mg/dL (1.6-2.3); Phosphorus 4.3 mg/dL (2.5-4.5); Potassium 5.7 mmol/L (3.5-5.1); Total Bilirubin 0.7 mg/dL (0.2-1.3); Total Protein 6.8 g/dL (6.3-8.2)
[2022-01-17 17:06] LABS: MCV 86.4 fL (80.0-100.0)
--- NOTE | 2022-01-17 17:19 | CT ---
EXAMINATION TYPE: CT abdomen pelvis wo con DATE OF EXAM: 01/17/2022 COMPARISON: 12/11/2021 HISTORY: pain CT DLP: 468.2 mGycm Automated exposure control for dose reduction was used. Images obtained from the diaphragm to the floor the pelvis without contrast. Lung bases are clear. No pleural effusion. Heart size is normal. No pericardial effusion. Liver and spleen are intact. Stomach is intact. The bile ducts are not dilated. There are clips from cholecystectomy. No evidence of pancreatic mass. There is a large retroperitoneal mass in the abdomen encasing the abdominal aorta and the inferior ve na cava. Mass measures 14 x 10 cm on the axial images. There is no adrenal mass. Kidneys have normal size. No hydronephrosis. Ureters are not dilated. Urina ry bladder is almost empty. No inguinal hernia. No free fluid in the pelvis. No pelvic mass. There is no ascites or free air. No sign of a bowel obstruction. Appendix not seen. IMPRESSION: Large retroperitoneal mass consistent with tumor. This is consistent with lymphoma and is not signifi cantly different allowing for error of measurement compared to old exam.
[2022-01-17 17:20] LABS: Band Neutrophils % 16 %; Lymphocytes # (M) 0.28 k/uL (1.0-4.8); Metamyelocytes # (M) 0.07 k/uL (0); Metamyelocytes % 1 %; Monocytes # (M) 0.49 k/uL (0-1.0); Neutrophils % (M) 74 %; Nucleated Red Blood Cells 0 /100 WBC (0-0); Total Cells Counted 200
[2022-01-17] MEDS ORDERED: NALOXONE 0.4 MG/ML 1 ML VIAL IV PRN (18:06)
[2022-01-17] MEDS: SODIUM CHLORIDE 0.9% 1,000 ML IV SCH (18:47)
[2022-01-17 18:53] LABS: Appearance,Urine Cloudy (Clear); Bacteria,Urine Rare /hpf; Bilirubin,Urine 1+ (Negative); Blood,Urine Negative (Negative); Color,Urine Dark Yellow; Glucose,Urine (UA) Negative (Negative); Hyaline Casts,Urine 18 /lpf (0-2); Ketones,Urine 1+ (Negative); Leukocyte Esterase,Urine Negative (Negative); Mucus,Urine Occasional /hpf; Nitrite,Urine Negative (Negative); PH, Urine 5.5 (5.0-8.0); Protein,Urine Trace (Negative); RBC,Urine 1 /hpf (0-5); Specific Gravity,Urine 1.021 (1.001-1.035); Squamous Epithelial Cell,Urine 2 /hpf (0-4); WBC,Urine 2 /hpf (0-5)
[2022-01-17] MEDS ORDERED: CLOTRIMAZOLE 1% CREAM 30 GM TUBE TOPICAL PRN (20:25)
[2022-01-17] MEDS ORDERED: PROCHLORPERAZINE 10 MG TAB PO PRN (20:25)
[2022-01-17] MEDS ORDERED: SODIUM ZIRCONIUM CYCLOSILICATE 10 GM PACKET PO ONE (20:25)
[2022-01-17] MEDS ORDERED: CLOBETASOL PROPIONATE TOPICAL PRN (20:25)
[2022-01-17] MEDS ORDERED: LACTULOSE 20 GM/30 ML CUP PO PRN (20:25)
[2022-01-17] MEDS ORDERED: oxyCODONE-APAP 7.5-325MG 1 EACH TAB PO PRN ×2 (20:25→20:29)
[2022-01-17] MEDS ORDERED: SENNOSIDES-DOCUSATE SODIUM 1 EACH TAB PO PRN (20:28)
[2022-01-18 06:36] LABS: Albumin 2.7 g/dL (3.5-5.0); Calcium 8.6 mg/dL (8.4-10.2); Potassium 4.2 mmol/L (3.5-5.1); Total Bilirubin 0.3 mg/dL (0.2-1.3); Total Protein 4.9 g/dL (6.3-8.2)
[2022-01-18 07:00] LABS: HCT 29.2 % (34.0-46.0); MCH 30.9 pg (25.0-35.0); MCHC 35.1 g/dL (31.0-37.0); MCV 87.9 fL (80.0-100.0); Mean Platelet Volume 8.5; Platelet Count 227 k/uL (150-450); RBC 3.33 m/uL (3.80-5.40); RDW 13.7 % (11.5-15.5); WBC 5.6 k/uL (3.8-10.6)
[2022-01-18] MEDS: SODIUM CHLORIDE 0.9% 1,000 ML IV SCH ×4 (07:44→21:05)
[2022-01-18] MEDS: ONDANSETRON 4 MG/2 ML VIAL IVP PRN ×2 (07:44→16:15)
[2022-01-18] MEDS: allopurinoL 300 MG TAB PO SCH (07:44)
[2022-01-18] MEDS: LEVOTHYROXINE 100 MCG TAB PO SCH (07:44)
[2022-01-18 07:48] LABS: HGB 10.3 gm/dL (11.4-16.0)
[2022-01-18 09:05] LABS: Band Neutrophils % 8 %; Eosinophils # (M) 0.06 k/uL (0-0.7); Lymphocytes # (M) 0.22 k/uL (1.0-4.8); Monocytes # (M) 0.62 k/uL (0-1.0); Neutrophils % (M) 76 %; Nucleated Red Blood Cells 0 /100 WBC (0-0); Total Cells Counted 100
[2022-01-18 09:06] LABS: RBC Morphology Normal
[2022-01-18] MEDS: VENLAFAXINE HCL ER 150 MG CAP PO SCH (12:09)
--- NOTE | 2022-01-18 12:49 | P.CONS ---
History of Present Illness - Reason for Consult Consult date: 01/18/22 NHL on chemo - History of Present Illness Ms. hCeng is a 71 year old woman with a PMHx significant for anxiety who presents for a new diagnosis of diffuse large B-cell lymphoma. She presented to [facility] on 12/11/21 with persistent abdominal pain and constipation. She was found to have BETH and hypercalcemia on initial presentation. CT a/p with low dose IV contrast on 12/11/21 revealed retroperitoneal mass measuring 15.8 x 9.4 x 15.5 cm encasing the aorta causing displacement anteriorly. Displacement of the IVC and other renal vessels bilaterally was also noted. She was given IVF, bisphosphonate, and calcitonin for treatment of her hypercalcemia. CT guided biopsy of the mass on 12/12/21 noted diffuse large B-cell lymphoma that was ABC subtype. It was positive for CD45 and CD20 and negative for CD10. Ki-67 was noted to be 70-80%. Flow cytometry from the lesion was positive for CD19, CD20, CD38, CD45 and negative for CD3, CD5, CD10, CD11c, CD23. FISH noted no MYC or BCL-6 rearrangement, but did note 40% of nuclei revealing 3-6 BCL2 signals consistent with trisomy 18 or gain 18q. She had echo on 12/17/21, which noted EF 50-55%. CT chest on 12/17/21 noted no lympadenopathy above the diaphragm. She was discharged on 12/18/21 and had port placement on 12/25/21. Labs from her admission were notable for normal LDH, negative hepatitis panel and uric acid 7.1. She notes having anorexia with 25-30 Ibs weight loss over the past 3 months. She has occasional night sweats about once a week. She does have nausea, which further decreases her appetite. She denies any vomiting or lymphadenopathy. She is able to tolerate ice cream, soup, and soft foods without vomiting. She is Status post Cycle one of R-CHOP with Neulasta on 01/08/2022. She now presents to ER complaints of generalized fatigue and nausea ongoing since her first chemo treatment approximately 2 weeks ago. Struggled in past with severe constipation, diarrhea in the most recent. I do not see olanzaprine on her medication list. We discussed adding olanzaprine, tearful, anxious and not sleeping, discontinue compazine Will add PPI Review of Systems All systems: negative Constitutional: Reports as per HPI Past Medical History Past Medical History: Hyperlipidemia, Thyroid Disorder Additional Past Medical History / Comment(s): Diffuse large b cell lymphoma dx 11/2021 History of Any Multi-Drug Resistant Organisms: None Reported Past Surgical History: Cholecystectomy, Hysterectomy, Orthopedic Surgery Additional Past Surgical History / Comment(s): PARTIAL THYROIDECTOMY. LT ROTATOR CUFF REPAIRED. Past Anesthesia/Blood Transfusion Reactions: No Reported Reaction, Motion Sickness Past Psychological History: Depression Smoking Status: Never smoker Past Alcohol Use History: None Reported Additional Past Alcohol Use History / Comment(s): Quit smoking in 2007. Past Drug Use History: None Reported - Past Family History Mother Sister(s) Family Medical History: Cancer Medications and Allergies Home Medications Medication Instructions Recorded Confirmed Type Levothyroxine Sodium [Synthroid] 100 mcg PO DAILY 09/07/14 01/17/22 History Spironolactone [Aldactone] 100 mg PO DAILY 12/11/21 01/17/22 History Venlafaxine HCl ER [Effexor XR] 150 mg PO AC-LUNCH 12/11/21 01/17/22 History Lactulose [Cephulac] 20 gm PO BID PRN #300 ml 12/18/21 01/17/22 Rx Clobetasol Propionate [Clobex 1 applic TOPICAL HS PRN 01/17/22 01/17/22 History [place] 0.05%] Ketoconazole 2% Cream [Nizoral 2%] 1 applic TOPICAL BID PRN 01/17/22 01/17/22 History Ondansetron Odt [Zofran Odt] 8 mg PO Q8H PRN 01/17/22 01/17/22 History Prochlorperazine [Compazine] 10 mg PO Q6H 01/17/22 01/17/22 History Sennosides/Docusate Sodium [Senna 1 - 2 tab PO BID PRN 01/17/22 01/17/22 History Plus 8.6-50 mg Tablet] allopurinoL 300 mg PO DAILY 01/17/22 01/17/22 History oxyCODONE-APAP 7.5-325MG [Percocet 1 tab PO Q4H PRN 01/17/22 01/17/22 History 7.5-325 mg] predniSONE [Deltasone] 100 mg PO DIRECTED 01/17/22 01/17/22 History Allergies Allergy/AdvReac Type Severity Reaction Status Date / Time Penicillins Allergy Unknown, + Verified 01/17/22 16:02 allergy testing as a child shrimp Allergy Rash/Hives Verified 01/17/22 16:02 around mouth Physical Exam Vitals: Vital Signs Temp Pulse Pulse Resp BP BP Pulse Ox 01/18/22 11:15 113 H 16 116/51 100 01/18/22 07:41 97.9 F 98 16 104/61 96 01/18/22 04:00 102 H 16 127/60 100 01/17/22 23:30 109 H 18 142/65 98 01/17/22 20:00 98.1 F 99 16 124/56 99 01/17/22 18:57 96 16 132/63 99 01/17/22 18:46 100 18 117/61 99 01/17/22 16:00 98.0 F 129 H 20 104/66 100 Intake and Output 01/17/22 01/18/22 01/18/22 22:59 06:59 14:59 Output Total 0 Balance 0 Output: Urine 0 Stool 0 Urine/Stool Mix 0 Emesis 0 Oral Regurgitation 0 Other: Voiding Method Toilet Toilet # Voids 0 # Bowel Movements 0 Weight 65.317 kg Thrush - Constitutional General appearance: cooperative, no acute distress - EENT Eyes: EOMI ENT: NA/AT - Neck Neck: normal ROM - Respiratory Respiratory: bilateral: diminished - Cardiovascular Rhythm: regularly irregular - Gastrointestinal General gastrointestinal: soft - Integumentary Integumentary: pale - Neurologic Neurologic: CNII-XII intact - Musculoskeletal Musculoskeletal: generalized weakness - Psychiatric Psychiatric: A&O x's 3 Results CBC & Chem 7: 01/18/22 05:30 01/18/22 05:30 Labs: Abnormal Lab Results - Last 24 Hours (Table) 01/17/22 01/17/22 01/17/22 Range/Units 16:29 16:29 16:29 RBC (3.80-5.40) m/uL Hgb (11.4-16.0) gm/dL Hct (34.0-46.0) % Lymphocytes # (Manual) 0.28 L (1.0-4.8) k/uL Metamyelocytes # (Man) 0.07 H (0) k/uL Sodium 132 L (137-145) mmol/L Potassium 5.7 H (3.5-5.1) mmol/L Chloride 89 L (98-107) mmol/L BUN 26 H (7-17) mg/dL Creatinine 1.23 H (0.52-1.04) mg/dL Glucose 214 H (74-99) mg/dL Plasma Lactic Acid Jose 7.5 H* (0.7-2.0) mmol/L Calcium 11.3 H (8.4-10.2) mg/dL Magnesium 2.6 H (1.6-2.3) mg/dL AST 78 H (14-36) U/L ALT 223 H (4-34) U/L Alkaline Phosphatase 158 H (38-126) U/L Total Protein (6.3-8.2) g/dL Albumin (3.5-5.0) g/dL Urine Appearance (Clear) Urine Protein (Negative) Urine Ketones (Negative) Urine Bilirubin (Negative) Urine Bacteria (None) /hpf Hyaline Casts (0-2) /lpf Urine Mucus (None) /hpf 01/17/22 01/17/22 01/17/22 Range/Units 18:39 19:35 22:16 RBC (3.80-5.40) m/uL Hgb (11.4-16.0) gm/dL Hct (34.0-46.0) % Lymphocytes # (Manual) (1.0-4.8) k/uL Metamyelocytes # (Man) (0) k/uL Sodium (137-145) mmol/L Potassium (3.5-5.1) mmol/L Chloride (98-107) mmol/L BUN (7-17) mg/dL Creatinine (0.52-1.04) mg/dL Glucose (74-99) mg/dL Plasma Lactic Acid Jose 6.3 H* 2.9 H* (0.7-2.0) mmol/L Calcium (8.4-10.2) mg/dL Magnesium (1.6-2.3) mg/dL AST (14-36) U/L ALT (4-34) U/L Alkaline Phosphatase (38-126) U/L Total Protein (6.3-8.2) g/dL Albumin (3.5-5.0) g/dL Urine Appearance Cloudy H (Clear) Urine Protein Trace H (Negative) Urine Ketones 1+ H (Negative) Urine Bilirubin 1+ H (Negative) Urine Bacteria Rare H (None) /hpf Hyaline Casts 18 H (0-2) /lpf Urine Mucus Occasional H (None) /hpf 01/18/22 01/18/22 Range/Units 05:30 05:30 RBC 3.33 L (3.80-5.40) m/uL Hgb 10.3 L D (11.4-16.0) gm/dL Hct 29.2 L (34.0-46.0) % Lymphocytes # (Manual) 0.22 L (1.0-4.8) k/uL Metamyelocytes # (Man) (0) k/uL Sodium 131 L (137-145) mmol/L Potassium (3.5-5.1) mmol/L Chloride (98-107) mmol/L BUN 19 H (7-17) mg/dL Creatinine (0.52-1.04) mg/dL Glucose (74-99) mg/dL Plasma Lactic Acid Jose (0.7-2.0) mmol/L Calcium (8.4-10.2) mg/dL Magnesium (1.6-2.3) mg/dL AST (14-36) U/L ALT 135 H (4-34) U/L Alkaline Phosphatase (38-126) U/L Total Protein 4.9 L (6.3-8.2) g/dL Albumin 2.7 L (3.5-5.0) g/dL Urine Appearance (Clear) Urine Protein (Negative) Urine Ketones (Negative) Urine Bilirubin (Negative) Urine Bacteria (None) /hpf Hyaline Casts (0-2) /lpf Urine Mucus (None) /hpf CT scan - abdomen: report reviewed CT scan - pelvis: report reviewed Assessment and Plan (1) Dehydration Narrative/Plan: Secondary to decreased PO intake and Nausea and vomiting Re-educate on importance of keeping bowels moving, hydration, and PO Protein Would add Olanzaprine at bed possible low dose continuous throughout chemo Also willneed PPI with Prednisone as she is on a large dose for 5 days each chemo Current Visit: Yes Status: Acute Code(s): E86.0 - DEHYDRATION SNOMED Code(s): 31893491 (2) Elevated lactic acid level Narrative/Plan: A full infectious work-up is required as patient presents with high lactic, afebrile, however on chemo and immuno suppressed BC x2 UA and CUlturee Chest xray Current Visit: Yes Status: Acute Code(s): R79.89 - OTHER SPECIFIED ABNORMAL FINDINGS OF BLOOD CHEMISTRY SNOMED Code(s): 0691323 (3) Nausea & vomiting Current Visit: Yes Status: Acute Code(s): R11.2 - NAUSEA WITH VOMITING, UNSPECIFIED SNOMED Code(s): 11013548 (4) Constipation Current Visit: No Status: Acute Code(s): K59.00 - CONSTIPATION, UNSPECIFIED SNOMED Code(s): 10003035 (5) Lymphoma Narrative/Plan: Status post Cycle 1 with Neulasta on 01/08/22 Current Visit: No Status: Acute Code(s): C85.90 - NON-HODGKIN LYMPHOMA, UNSPECIFIED, UNSPECIFIED SITE SNOMED Code(s): 732517522 (6) Retroperitoneal mass Current Visit: No Status: Acute Code(s): R19.00 - INTRA-ABD AND PELVIC SWELLING, MASS AND LUMP, UNSP SITE SNOMED Code(s): 22064981 Plan: Nystatin swish Olanzaprine, stop compazine Re-educated senna S, hydrtion and nutrition Start PPI
[2022-01-18 13:41] LABS: LDH 434 U/L (313-618); Phosphorus 2.2 mg/dL (2.5-4.5); Uric Acid 2.9 mg/dL (3.7-7.4)
--- NOTE | 2022-01-18 14:13 | XR ---
EXAMINATION TYPE: XR chest 2V DATE OF EXAM: 01/18/2022 COMPARISON: 12/25/2021 HISTORY: Short of breath TECHNIQUE: FINDINGS: Heart is normal. Lungs are clear. Diaphragm is normal. There are chest leads. There is a ri ght central venous catheter with tip in the superior vena cava. IMPRESSION: No active cardiopulmonary disease. Normal heart. There is improved inspiration.
[2022-01-18] MEDS ORDERED: FAMOTIDINE 20 MG/2 ML VIAL IV ONE (14:29)
[2022-01-18 14:55] LABS: Appearance,Urine Clear (Clear); Bilirubin,Urine Negative (Negative); Blood,Urine Negative (Negative); Color,Urine Light Yellow; Glucose,Urine (UA) Negative (Negative); Ketones,Urine Negative (Negative); Leukocyte Esterase,Urine Negative (Negative); Nitrite,Urine Negative (Negative); PH, Urine 7.5 (5.0-8.0); Protein,Urine Negative (Negative); Specific Gravity,Urine 1.012 (1.001-1.035); Urobilinogen,Urine <2.0 mg/dL (<2.0)
[2022-01-18] MEDS: NYSTATIN 100,000 UNIT/ML SUSP 500,000 UNIT/5 ML CUP PO SCH ×2 (17:19→21:01)
--- NOTE | 2022-01-18 17:31 | P.HPIM ---
History of Present Illness H&P Date: 01/18/22 Chief Complaint: Weakness/nausea/vomiting 71-year-old female presenting to the emergency room with complaints of generalized fatigue and nausea ongoing since her first chemo treatment approximately 2 weeks ago and over the last week she has had increase in nausea with multiple episodes of vomiting along with dizziness. This morning she had a loose bowel movement with blood; she has not previously had any diarrhea and prior to her recent oncologic diagnosis she had severe constipation. She had presented to the emergency room on 12/11/2021 for complaints of severe constipation and was found to have a mass and underwent workup and was subsequently diagnosed with diffuse large B-cell lymphoma. She had her port placed on 12/25/2021 and had her first chemotherapy infusion approximately 2 weeks ago as stated above which overall she tolerated well. She obtained her flu vaccine approximately 1 week ago. In addition to her lymphoma diagnosis she has a past medical history significant for hypothyroidism and hyperlipidemia. Lab review reveals a to be resistant 0.0, hemoglobin 14.1 and platelet count of 333, sodium 132, potassium 5.7, BUN/creatinine of 26/1.23 and blood glucose of 214 COVID and influenza swabs negative. CT of the abdomen redemonstrates retroperitoneal mass without evidence of interval change since last exam. No evidence of free fluid or free air in the abdomen. Review of Systems REVIEW OF SYSTEMS: CONSTITUTIONAL: No fever, no malaise, no fatigue. HEENT: No recent visual problems or hearing problems. Denied any sore throat. CARDIOVASCULAR: No chest pain, orthopnea, PND, no palpitations, no syncope. PULMONARY: No shortness of breath, no cough, no hemoptysis. GASTROINTESTINAL: Complains of nausea and vomiting, no abdominal pain. NEUROLOGICAL: No headaches, no weakness, no numbness. HEMATOLOGICAL: Denies any bleeding or petechiae. GENITOURINARY: Denies any burning micturition, frequency, or urgency. MUSCULOSKELETAL/RHEUMATOLOGICAL: Denies any joint pain, swelling, or any muscle pain. ENDOCRINE: Denies any polyuria or polydipsia. The rest of the 14-point review of systems is negative. Past Medical History Past Medical History: Hyperlipidemia, Thyroid Disorder Additional Past Medical History / Comment(s): Diffuse large b cell lymphoma dx 11/2021 History of Any Multi-Drug Resistant Organisms: None Reported Past Surgical History: Cholecystectomy, Hysterectomy, Orthopedic Surgery Additional Past Surgical History / Comment(s): PARTIAL THYROIDECTOMY. LT ROTATOR CUFF REPAIRED. Past Anesthesia/Blood Transfusion Reactions: No Reported Reaction, Motion Sickness Past Psychological History: Depression Smoking Status: Never smoker Past Alcohol Use History: None Reported Additional Past Alcohol Use History / Comment(s): Quit smoking in 2007. Past Drug Use History: None Reported - Past Family History Mother Sister(s) Family Medical History: Cancer Medications and Allergies Home Medications Medication Instructions Recorded Confirmed Type Levothyroxine Sodium [Synthroid] 100 mcg PO DAILY 09/07/14 01/17/22 History Spironolactone [Aldactone] 100 mg PO DAILY 12/11/21 01/17/22 History Venlafaxine HCl ER [Effexor XR] 150 mg PO AC-LUNCH 12/11/21 01/17/22 History Lactulose [Cephulac] 20 gm PO BID PRN #300 ml 12/18/21 01/17/22 Rx Clobetasol Propionate [Clobex 1 applic TOPICAL HS PRN 01/17/22 01/17/22 History [place] 0.05%] Ketoconazole 2% Cream [Nizoral 2%] 1 applic TOPICAL BID PRN 01/17/22 01/17/22 History Ondansetron Odt [Zofran Odt] 8 mg PO Q8H PRN 01/17/22 01/17/22 History Prochlorperazine [Compazine] 10 mg PO Q6H 01/17/22 01/17/22 History Sennosides/Docusate Sodium [Senna 1 - 2 tab PO BID PRN 01/17/22 01/17/22 History Plus 8.6-50 mg Tablet] allopurinoL 300 mg PO DAILY 01/17/22 01/17/22 History oxyCODONE-APAP 7.5-325MG [Percocet 1 tab PO Q4H PRN 01/17/22 01/17/22 History 7.5-325 mg] predniSONE [Deltasone] 100 mg PO DIRECTED 01/17/22 01/17/22 History Allergies Allergy/AdvReac Type Severity Reaction Status Date / Time Penicillins Allergy Unknown, + Verified 01/17/22 16:02 allergy testing as a child shrimp Allergy Rash/Hives Verified 01/17/22 16:02 around mouth Physical Exam Vitals: Vital Signs Temp Pulse Pulse Resp BP BP Pulse Ox 01/18/22 07:41 97.9 F 98 16 104/61 96 01/18/22 04:00 102 H 16 127/60 100 01/17/22 23:30 109 H 18 142/65 98 01/17/22 20:00 98.1 F 99 16 124/56 99 01/17/22 18:57 96 16 132/63 99 01/17/22 18:46 100 18 117/61 99 01/17/22 16:00 98.0 F 129 H 20 104/66 100 Intake and Output 01/17/22 01/18/22 01/18/22 22:59 06:59 14:59 Output Total 0 Balance 0 Output: Urine 0 Stool 0 Urine/Stool Mix 0 Emesis 0 Oral Regurgitation 0 Other: Voiding Method Toilet Toilet # Voids 0 # Bowel Movements 0 Weight 65.317 kg Results CBC & Chem 7: 01/18/22 05:30 01/18/22 05:30 Labs: Abnormal Lab Results - Last 24 Hours (Table) 01/17/22 01/17/22 01/17/22 Range/Units 16:29 16:29 16:29 RBC (3.80-5.40) m/uL Hgb (11.4-16.0) gm/dL Hct (34.0-46.0) % Lymphocytes # (Manual) 0.28 L (1.0-4.8) k/uL Metamyelocytes # (Man) 0.07 H (0) k/uL Sodium 132 L (137-145) mmol/L Potassium 5.7 H (3.5-5.1) mmol/L Chloride 89 L (98-107) mmol/L BUN 26 H (7-17) mg/dL Creatinine 1.23 H (0.52-1.04) mg/dL Glucose 214 H (74-99) mg/dL Plasma Lactic Acid Jose 7.5 H* (0.7-2.0) mmol/L Calcium 11.3 H (8.4-10.2) mg/dL Magnesium 2.6 H (1.6-2.3) mg/dL AST 78 H (14-36) U/L ALT 223 H (4-34) U/L Alkaline Phosphatase 158 H (38-126) U/L Total Protein (6.3-8.2) g/dL Albumin (3.5-5.0) g/dL Urine Appearance (Clear) Urine Protein (Negative) Urine Ketones (Negative) Urine Bilirubin (Negative) Urine Bacteria (None) /hpf Hyaline Casts (0-2) /lpf Urine Mucus (None) /hpf 01/17/22 01/17/22 01/17/22 Range/Units 18:39 19:35 22:16 RBC (3.80-5.40) m/uL Hgb (11.4-16.0) gm/dL Hct (34.0-46.0) % Lymphocytes # (Manual) (1.0-4.8) k/uL Metamyelocytes # (Man) (0) k/uL Sodium (137-145) mmol/L Potassium (3.5-5.1) mmol/L Chloride (98-107) mmol/L BUN (7-17) mg/dL Creatinine (0.52-1.04) mg/dL Glucose (74-99) mg/dL Plasma Lactic Acid Jose 6.3 H* 2.9 H* (0.7-2.0) mmol/L Calcium (8.4-10.2) mg/dL Magnesium (1.6-2.3) mg/dL AST (14-36) U/L ALT (4-34) U/L Alkaline Phosphatase (38-126) U/L Total Protein (6.3-8.2) g/dL Albumin (3.5-5.0) g/dL Urine Appearance Cloudy H (Clear) Urine Protein Trace H (Negative) Urine Ketones 1+ H (Negative) Urine Bilirubin 1+ H (Negative) Urine Bacteria Rare H (None) /hpf Hyaline Casts 18 H (0-2) /lpf Urine Mucus Occasional H (None) /hpf 01/18/22 01/18/22 Range/Units 05:30 05:30 RBC 3.33 L (3.80-5.40) m/uL Hgb 10.3 L D (11.4-16.0) gm/dL Hct 29.2 L (34.0-46.0) % Lymphocytes # (Manual) 0.22 L (1.0-4.8) k/uL Metamyelocytes # (Man) (0) k/uL Sodium 131 L (137-145) mmol/L Potassium (3.5-5.1) mmol/L Chloride (98-107) mmol/L BUN 19 H (7-17) mg/dL Creatinine (0.52-1.04) mg/dL Glucose (74-99) mg/dL Plasma Lactic Acid Jose (0.7-2.0) mmol/L Calcium (8.4-10.2) mg/dL Magnesium (1.6-2.3) mg/dL AST (14-36) U/L ALT 135 H (4-34) U/L Alkaline Phosphatase (38-126) U/L Total Protein 4.9 L (6.3-8.2) g/dL Albumin 2.7 L (3.5-5.0) g/dL Urine Appearance (Clear) Urine Protein (Negative) Urine Ketones (Negative) Urine Bilirubin (Negative) Urine Bacteria (None) /hpf Hyaline Casts (0-2) /lpf Urine Mucus (None) /hpf Thrombosis Risk Factor Assmnt - Choose All That Apply Any of the Below Risk Factors Present?: No Each Risk Factor Represents 2 Points: Age 61-74 years Other congenital or acquired thrombophilia - If yes, enter type in comment: No Thrombosis Risk Factor Assessment Total Risk Factor Score: 2 Thrombosis Risk Factor Assessment Level: Low Risk Assessment and Plan Assessment: 1. Intractable nausea and vomiting; symptomatic treatment of nausea and vomiting; continue with IV fluid hydration and normal saline 2. Acute renal injury/dehydration - IV fluids and follow with normal saline at rate of 100 mL an hour; we will monitor strict ROMMEL's, daily weights, renal function and electrolytes; avoid nephrotoxins and hypotension 3. Electrolyte imbalance -- Hyponatremia with sodium of 132, hyperkalemia potassium of 5.7, hypercalcemia with calcium level of 11.3 and magnesium of 2.6; likely related to vomiting/dehydration - Patient will continue to receive IV fluid hydration with close monitoring of electrolytes 4. Lactic acidosis; likely related to vomiting and dehydration; patient received 1 L bolus of IV fluids in ED; troponin is trending down; no signs of sepsis; sepsis workup is ordered including blood culture, urine culture and chest x-ray given immunocompromise status 5. Transaminitis; AST/ALT is elevated at 78/223; likely related to intractable nausea and vomiting; we will monitor liver enzymes with plans for hepatic ultrasound if continue to trend up 6. Lymphoma; Status post Cycle 1 with Neulasta on 01/08/22 7. Hypothyroidism; levothyroxin 100 MCG daily 8. Depression/anxiety; Effexor 150 mg daily DVT prophylaxis; SCDs/subcu heparin CODE STATUS; full code
[2022-01-18] MEDS: OLANZapine 5 MG TAB PO SCH (21:01)
[2022-01-19 05:30] LABS: Albumin 2.6 g/dL (3.5-5.0); Bilirubin, Delta 0.2 mg/dL (0.0-0.2); Calcium 8.4 mg/dL (8.4-10.2); Potassium 3.8 mmol/L (3.5-5.1); Total Bilirubin 0.2 mg/dL (0.2-1.3); Total Protein 4.6 g/dL (6.3-8.2)
[2022-01-19 05:41] LABS: Basophils % (A) 0 %; Eosinophils % (A) 1 %; HCT 27.3 % (34.0-46.0); HGB 9.6 gm/dL (11.4-16.0); Lymphocytes # (A) 0.4 k/uL (1.0-4.8); Lymphocytes % (A) 7 %; MCH 31.1 pg (25.0-35.0); MCHC 35.3 g/dL (31.0-37.0); MCV 88.1 fL (80.0-100.0); Mean Platelet Volume 8.7; Monocytes # (A) 0.3 k/uL (0-1.0); Monocytes % (A) 4 %; Neutrophils # (A) 5.7 k/uL (1.3-7.7); Neutrophils % (A) 87 %; Platelet Count 212 k/uL (150-450); RDW 14.1 % (11.5-15.5); WBC 6.6 k/uL (3.8-10.6)
[2022-01-19] MEDS: PANTOPRAZOLE 40 MG TABLET PO SCH (07:03)
[2022-01-19] MEDS: SODIUM CHLORIDE 0.9% 1,000 ML IV SCH ×3 (07:59→22:33)
[2022-01-19] MEDS: allopurinoL 300 MG TAB PO SCH (07:59)
[2022-01-19] MEDS: NYSTATIN 100,000 UNIT/ML SUSP 500,000 UNIT/5 ML CUP PO SCH ×4 (07:59→20:34)
[2022-01-19] MEDS: LEVOTHYROXINE 100 MCG TAB PO SCH (07:59)
[2022-01-19] MEDS: ONDANSETRON 4 MG/2 ML VIAL IVP PRN ×2 (07:59→16:35)
--- NOTE | 2022-01-19 11:25 | P.PN ---
Subjective 71-year-old female presenting to the emergency room with complaints of generalized fatigue and nausea ongoing since her first chemo treatment approximately 2 weeks ago and over the last week she has had increase in nausea with multiple episodes of vomiting along with dizziness. This morning she had a loose bowel movement with blood; she has not previously had any diarrhea and prior to her recent oncologic diagnosis she had severe constipation. She had presented to the emergency room on 12/11/2021 for complaints of severe constipat ion and was found to have a mass and underwent workup and was subsequently diagnosed with diffuse large B-cell lymphoma. She had her port placed on 12/25/2021 and had her first chemotherapy infusion approximately 2 weeks ago as stated above which overall she tolerated well. She obtained her flu vaccine approximately 1 week ago. In addition to her lymphoma diagnosis she has a past medical history significant for hypothyroidism and hyperlipidemia. Lab review reveals a to be resistant 0.0, hemoglobin 14.1 and platelet count of 333, sodium 132, potassium 5.7, BUN/creatinine of 26/1.23 and blood glucose of 214 COVID and influenza swabs negative. CT of the abdomen redemonstrates retroperitoneal mass without evidence of interval change since last exam. No evidence of free fluid or free air in the abdomen. 01/19/2022 Patient presents with intractable nausea vomiting suspicious for gastritis r elated to her diffuse large B cell lymphoma, she is status post chemotherapy. She is currently having nausea with no vomiting, she vomited once in the morning. She remains on IV Zofran. We will continue with symptomatic treatment for now. Patient is unable to tolerate diet well. She didn't have bowel movement today. Her abdomen looks soft with no tenderness Objective - Vital Signs Vital signs: Vital Signs Temp 97.7 F 01/19/22 08:00 Pulse 112 H 01/19/22 08:00 Resp 18 01/19/22 08:00 BP 142/71 01/19/22 08:00 Pulse Ox 99 01/19/22 08:00 FiO2 Intake & Output 01/18/22 01/19/22 01/19/22 18:59 06:59 18:59 Intake Total 120 120 0 Output Total 0 0 Balance 120 120 0 Intake: Oral 120 120 0 Output: Urine 0 Stool 0 0 Urine/Stool Mix 0 Emesis 0 Oral Regurgitation 0 Other: Voiding Method Toilet Toilet Toilet # Voids 1 1 1 # Bowel Movements 0 1 - Exam GENERAL: The patient is alert and oriented x3, not in any acute distress. Well developed, well nourished. HEENT: Pupils are round and equally reacting to light. EOMI. No scleral icterus. No conjunctival pallor. Normocephalic, atraumatic. No pharyngeal erythema. No thyromegaly. CARDIOVASCULAR: S1 and S2 present. No murmurs, rubs, or gallops. PULMONARY: Chest is clear to auscultation, no wheezing or crackles. ABDOMEN: Soft, nontender, nondistended, normoactive bowel sounds. No palpable organomegaly. MUSCULOSKELETAL: No joint swelling or deformity. EXTREMITIES: No cyanosis, clubbing, or pedal edema. NEUROLOGICAL: Gross neurological examination did not reveal any focal deficits. SKIN: No rashes. no petechiae. - Labs CBC & Chem 7: 01/19/22 04:55 01/19/22 04:55 Labs: Abnormal Lab Results - Last 24 Hours (Table) 01/18/22 01/19/22 01/19/22 Range/Units 13:04 04:55 04:55 RBC 3.10 L (3.80-5.40) m/uL Hgb 9.6 L (11.4-16.0) gm/dL Hct 27.3 L (34.0-46.0) % Lymphocytes # 0.4 L (1.0-4.8) k/uL Chloride 108 H (98-107) mmol/L Uric Acid 2.9 L (3.7-7.4) mg/dL Phosphorus 2.2 L (2.5-4.5) mg/dL ALT 98 H (4-34) U/L Total Protein 4.6 L (6.3-8.2) g/dL Albumin 2.6 L (3.5-5.0) g/dL Assessment and Plan Assessment: Assessment: 1. Intractable nausea and vomiting; symptomatic treatment of nausea and vomiting; continue with IV fluid hydration and normal saline 2. Acute renal injury/dehydration - IV fluids and follow with normal saline at rate of 100 mL an hour; we will monitor strict ROMMEL's, daily weights, renal function and electrolytes; avoid nephrotoxins and hypotension 3. Electrolyte imbalance -- Hyponatremia with sodium of 132, hyperkalemia potassium of 5.7, hypercalcemia with calcium level of 11.3 and magnesium of 2.6; likely related to vomiting/dehydration - Patient will continue to receive IV fluid hydration with close monitoring of electrolytes 4. Lactic acidosis; likely related to vomiting and dehydration; patient received 1 L bolus of IV fluids in ED; troponin is trending down; no signs of se psis; sepsis workup is ordered including blood culture, urine culture and chest x-ray given immunocompromise status 5. Transaminitis; AST/ALT is elevated at 78/223; likely related to intractable nausea and vomiting; we will monitor liver enzymes with plans for hepatic ultrasound if continue to trend up 6. Lymphoma; Status post Cycle 1 with Neulasta on 01/08/22 7. Hypothyroidism; levothyroxin 100 MCG daily 8. Depression/anxiety; Effexor 150 mg daily DVT prophylaxis; SCDs/subcu heparin CODE STATUS; full code
[2022-01-19] MEDS: VENLAFAXINE HCL ER 150 MG CAP PO SCH (11:53)
[2022-01-19 13:14] LABS: % Iron Saturation 52.61 (12.00-45.00); Iron 123 ug/dL (50-170); Total Iron Binding Capacity 234 ug/dL (228-460); Vitamin B12 >2000.0 pg/mL (200.0-944.0)
--- NOTE | 2022-01-19 19:09 | P.PN ---
Subjective Progress Note Date: 01/19/22 Principal diagnosis: weakness, vomiting Pt is 11 days out from her 1st cycle of RCHOP. She states since admit no V or diarrhea, she has some discomfort in her lt low back under the ribs. No fever. Objective - Vital Signs Vital signs: Vital Signs Temp 98.3 F 01/19/22 15:10 Pulse 99 01/19/22 15:10 Resp 18 01/19/22 15:10 BP 129/62 01/19/22 15:10 Pulse Ox 100 01/19/22 15:10 FiO2 Intake & Output 01/18/22 01/19/22 01/19/22 18:59 06:59 18:59 Intake Total 120 120 118 Output Total 0 0 Balance 120 120 118 Intake: Oral 120 120 118 Output: Urine 0 Stool 0 0 Urine/Stool Mix 0 Emesis 0 Oral Regurgitation 0 Other: Voiding Method Toilet Toilet Toilet # Voids 1 1 1 # Bowel Movements 0 1 - Constitutional General appearance: Present: average body habitus, cooperative, no acute distress - EENT Eyes: Present: anicteric sclerae, EOMI ENT: Present: hearing grossly normal, normal oropharynx - Respiratory Respiratory: bilateral: CTA - Cardiovascular Details: tachy Heart sounds: normal: S1, S2 - Gastrointestinal General gastrointestinal: Present: normal bowel sounds, soft - Integumentary Integumentary: Present: normal - Neurologic Neurologic: Present: CNII-XII intact - Musculoskeletal Musculoskeletal Comment(s): Pain with palpation at the costovertebral angle on the left, no mass or deformity Musculoskeletal: Present: strength equal bilaterally - Psychiatric Psychiatric: Present: A&O x's 3, appropriate affect, intact judgment & insight - Labs CBC & Chem 7: 01/19/22 04:55 01/19/22 04:55 Labs: Abnormal Lab Results - Last 24 Hours (Table) 01/18/22 01/19/22 01/19/22 Range/Units 13:04 04:55 04:55 RBC 3.10 L (3.80-5.40) m/uL Hgb 9.6 L (11.4-16.0) gm/dL Hct 27.3 L (34.0-46.0) % Lymphocytes # 0.4 L (1.0-4.8) k/uL Chloride (98-107) mmol/L % Saturation 52.61 H (12.00-45.00) Transferrin 167.0 L (204.0-354.0) mg/dL Ferritin 1824.0 H (10.0-291.0) ng/mL ALT (4-34) U/L Total Protein (6.3-8.2) g/dL Albumin (3.5-5.0) g/dL Vitamin B12 >2000.0 H (200.0-944.0) pg/mL Procalcitonin 0.56 H (0.02-0.09) ng/mL 01/19/22 Range/Units 04:55 RBC (3.80-5.40) m/uL Hgb (11.4-16.0) gm/dL Hct (34.0-46.0) % Lymphocytes # (1.0-4.8) k/uL Chloride 108 H (98-107) mmol/L % Saturation (12.00-45.00) Transferrin (204.0-354.0) mg/dL Ferritin (10.0-291.0) ng/mL ALT 98 H (4-34) U/L Total Protein 4.6 L (6.3-8.2) g/dL Albumin 2.6 L (3.5-5.0) g/dL Vitamin B12 (200.0-944.0) pg/mL Procalcitonin (0.02-0.09) ng/mL Microbiology - Last 24 Hours (Table) 01/18/22 13:04 Blood Culture - Preliminary Blood No Growth after 24 hours - Imaging and Cardiology Chest x-ray: report reviewed Assessment and Plan (1) Nausea & vomiting Current Visit: Yes Status: Acute Priority: High Code(s): R11.2 - NAUSEA WITH VOMITING, UNSPECIFIED SNOMED Code(s): 87049142 (2) Dehydration Current Visit: Yes Status: Acute Priority: High Code(s): E86.0 - DEHYDRATION SNOMED Code(s): 18576236 (3) Diffuse large B cell lymphoma Current Visit: Yes Status: Acute Priority: High Code(s): C83.30 - DIFFUSE LARGE B-CELL LYMPHOMA, UNSPECIFIED SITE SNOMED Code(s): 421620896 Plan: Pt is s/p 1st cycle of RCHOP 11 days ago. Her CBC is as expected. She did receive GCSF, WBC/ANC adequate. Mild anemia, work up for anemia most consistent with inflammation. Dehydration 2/2 N,V. Olanzapine added with good results, cont. Zofran PRN. Pt taking meds for constipation Chemo paln is to continue treatment once pt has recovered adequately from her current condition
[2022-01-19] MEDS: OLANZapine 5 MG TAB PO SCH (20:34)
[2022-01-19] MEDS: HEPARIN SODIUM,PORCINE/PF 5,000 UNIT/0.5 ML SYRINGE SQ SCH (20:35)
[2022-01-20] MEDS ORDERED: PROMETHAZINE 25 MG TAB PO PRN (05:56)
[2022-01-20] MEDS ORDERED: LEVOFLOXACIN 500MG-D5W PMX 500 MG in DEXTROSE/WATER 1 100ML.BAG IVPB SCH (06:00)
[2022-01-20] MEDS: SODIUM CHLORIDE 0.9% 1,000 ML IV SCH (06:16)
[2022-01-20] MEDS: PANTOPRAZOLE 40 MG TABLET PO SCH (06:16)
[2022-01-20 06:20] VITALS: RESP 16
[2022-01-20] MEDS ORDERED: metroNIDAZOLE-NS PMX 500 MG in SALINE 1 100ML.BAG IVPB SCH (08:00)
[2022-01-20] MEDS: NYSTATIN 100,000 UNIT/ML SUSP 500,000 UNIT/5 ML CUP PO SCH ×2 (09:37→12:28)
[2022-01-20] MEDS: LEVOTHYROXINE 100 MCG TAB PO SCH (09:37)
[2022-01-20] MEDS: HEPARIN SODIUM,PORCINE/PF 5,000 UNIT/0.5 ML SYRINGE SQ SCH (09:37)
[2022-01-20] MEDS: allopurinoL 300 MG TAB PO SCH (09:37)
[2022-01-20 09:44] VITALS: TEMP 98.1
--- NOTE | 2022-01-20 11:26 | P.CONS ---
History of Present Illness - Reason for Consult Consult date: 01/20/22 Gastroenteritis Requesting physician: Shahab E Sheet - Chief Complaint Nausea and vomiting - History of Present Illness This is a pleasant 71-year-old female who presented to the emergency department on Wednesday with complaints of nausea vomiting and weakness. Patient was recently diagnosed with a large grade B-cell lymphoma on 12/12/2021. She started chemotherapy with Neulasta on 01/08/2022. She states she's had nausea and vomiting have pretty much since her last chemo treatment. The patient also states that she suffers from constipation and states that she had not had a bowel movement for several days and took 2 laxatives in the morning to extensive the evening. She has been started having nausea and vomiting with multiple episodes of diarrhea. She came into the emergency department for further evaluation of dehydration and abdominal pain. Since being admitted and vomiting has improved, she's had some mild nausea. She's had no bowel movement since Sat urday. She has seen Dr. Linder in the past for constipation. She had a CT of the abdomen and pelvis that shows a large retroperitoneal mass consistent with tumor. This is consistent with lymphoma is not significantly different allowing for ear measurement compared to old exam. She states abdominal pain has improved she has some mild nausea, decreased appetite but no vomiting. Patient was afebrile on admission, she had one low-grade temperature of 99.7 on 01/18/2022. She was started on levofloxacin and Flagyl for concerns for possible infectious gastroenteritis. Gastroenterology was consulted for gastroenteritis and recommendations on continuation of antibiotics. Patient had no evidence of leukocytosis and no further fevers. Labs: WBC 6.6 hemoglobin 9.6 hematocrit 27 platelet count 212,000 sodium 138 potassium 3.8 BUN 11 creatinine 0.8 glucose 84 total bilirubin 0.2 AST 28 ALT 98 alkaline phosphatase 85 patient had elevated pro calcitonin 0.56 Review of Systems REVIEW OF SYSTEMS: CARDIOPULMONARY: No chest pain or shortness of breath. Gastrointestinal: No abdominal pain. Nausea no vomiting. Constipation. No bowel movement since Wednesday. Constipation is chronic. No hematemesis, coffee-ground emesis. No rectal bleeding, or melena. GENITOURINARY: No dysuria or hematuria. MUSCULOSKELETAL: Reports normal range of motion. SKIN: No rashes. No jaundice. ENDOCRINE: No chills, fevers. No excessive weight gain or loss. No polydipsia or polyuria. PSYCHIATRIC: Unremarkable. NEUROLOGY: No change in mental status. Denies dizziness, headache. ENT: Vision unremarkable. CONSTITUTIONAL: Decreased appetite, weight loss 20-30 pounds over last 1-2 months duration. No fevers or chills. Past Medical History Past Medical History: Hyperlipidemia, Thyroid Disorder Additional Past Medical History / Comment(s): Diffuse large b cell lymphoma dx 11/2021 History of Any Multi-Drug Resistant Organisms: None Reported Past Surgical History: Cholecystectomy, Hysterectomy, Orthopedic Surgery Additional Past Surgical History / Comment(s): PARTIAL THYROIDECTOMY. LT ROTATOR CUFF REPAIRED. Past Anesthesia/Blood Transfusion Reactions: No Reported Reaction, Motion Sickness Past Psychological History: Depression Smoking Status: Never smoker Past Alcohol Use History: None Reported Additional Past Alcohol Use History / Comment(s): Quit smoking in 2007. Past Drug Use History: None Reported - Past Family History Mother Sister(s) Family Medical History: Cancer Medications and Allergies Home Medications Medication Instructions Recorded Confirmed Type Levothyroxine Sodium [Synthroid] 100 mcg PO DAILY 09/07/14 01/17/22 History Spironolactone [Aldactone] 100 mg PO DAILY 12/11/21 01/17/22 History Venlafaxine HCl ER [Effexor XR] 150 mg PO AC-LUNCH 12/11/21 01/17/22 History Lactulose [Cephulac] 20 gm PO BID PRN #300 ml 12/18/21 01/17/22 Rx Clobetasol Propionate [Clobex 1 applic TOPICAL HS PRN 01/17/22 01/17/22 History [place] 0.05%] Ketoconazole 2% Cream [Nizoral 2%] 1 applic TOPICAL BID PRN 01/17/22 01/17/22 History Ondansetron Odt [Zofran ODT] 8 mg PO Q8H PRN 01/17/22 01/17/22 History Prochlorperazine [Compazine] 10 mg PO Q6H 01/17/22 01/17/22 History Sennosides/Docusate Sodium [Senna 1 - 2 tab PO BID PRN 01/17/22 01/17/22 History Plus 8.6-50 mg Tablet] allopurinoL 300 mg PO DAILY 01/17/22 01/17/22 History oxyCODONE-APAP 7.5-325MG [Percocet 1 tab PO Q4H PRN 01/17/22 01/17/22 History 7.5-325 mg] predniSONE [Deltasone] 100 mg PO DIRECTED 01/17/22 01/17/22 History OLANZapine 5 mg PO HS #30 tablet 01/19/22 Rx Levofloxacin [Levaquin] 500 mg PO DAILY 7 Days #7 tab 01/20/22 Rx Nystatin 100,000 Unit/ml Susp 500,000 unit PO QID 3 Days #100 ml 01/20/22 Rx [Mycostatin Oral Susp] Pantoprazole [Protonix] 40 mg PO AC-BRKFST 30 Days #30 tab 01/20/22 Rx metroNIDAZOLE [Flagyl] 500 mg PO TID 7 Days #21 tab 01/20/22 Rx Allergies Allergy/AdvReac Type Severity Reaction Status Date / Time Penicillins Allergy Unknown, + Verified 01/17/22 16:02 allergy testing as a child shrimp Allergy Rash/Hives Verified 01/17/22 16:02 around mouth Physical Exam Vitals: Vital Signs Temp Pulse Resp BP Pulse Ox 01/20/22 04:00 98.4 F 76 16 117/56 98 01/20/22 00:00 97.9 F 71 18 115/56 99 01/19/22 20:00 98.0 F 90 18 124/65 100 01/19/22 15:10 98.3 F 99 18 129/62 100 01/19/22 13:12 97 01/19/22 11:52 97 18 123/63 100 Intake and Output 01/19/22 01/20/22 01/20/22 22:59 06:59 14:59 Intake Total 240 Balance 240 Intake: Oral 240 Other: Voiding Method Toilet Toilet # Voids 1 2 General appearance: The patient is alert, oriented, appears in no acute distress. HET: Head is normocephalic and atraumatic. Conjunctiva pink. Sclera anicteric. Neck: Supple without lymphadenopathy. Trachea midline. Heart: S1 S2. Regular rate and rhythm. Lungs: Clear to auscultation. Abdomen: Soft, nontender, nondistended with bowel sounds. No guarding or rigidity. Skin: No rashes. No jaundice. Extremities: Normal skin color and turgor. No pedal edema. Neurological: No focal deficits. Alert and oriented x3. Results CBC & Chem 7: 01/20/22 10:53 01/19/22 04:55 Labs: Abnormal Lab Results - Last 24 Hours (Table) 01/18/22 01/19/22 Range/Units 13:04 04:55 % Saturation 52.61 H (12.00-45.00) Transferrin 167.0 L (204.0-354.0) mg/dL Ferritin 1824.0 H (10.0-291.0) ng/mL Vitamin B12 >2000.0 H (200.0-944.0) pg/mL Procalcitonin 0.56 H (0.02-0.09) ng/mL Microbiology - Last 24 Hours (Table) 01/18/22 13:04 Blood Culture - Preliminary Blood No Growth after [address] scan - abdomen: report reviewed (Large Retroperitoneal mass system with tumor) Assessment and Plan (1) Nausea & vomiting Narrative/Plan: 71-year-old female presented to the emergency department with nausea vomiting, diarrhea who is recently been diagnosed with large B-cell lymphoma and recently started her first round of chemotherapy on 01/08/2022. Patient came in with dehydration, states that she's been nauseated and vomiting since her treatment. She also suffers from chronic constipation and had been constipated for several days it took for laxatives a day and then became increasingly more nauseated with increased vomiting and diarrhea. She was admitted with dehydration, gastroenteritis and had a low-grade fever 99.71 and was started empirically on antibiotics. Symptoms are resolved, she still has decreased appetite but no vomiting. No bowel movement since Wednesday, will begin bowel regimen. Continue antiemetics. Current Visit: Yes Status: Acute Priority: High Code(s): R11.2 - NAUSEA WITH VOMITING, UNSPECIFIED SNOMED Code(s): 37847692 (2) Dehydration Current Visit: Yes Status: Acute Priority: High Code(s): E86.0 - DEHYDRATION SNOMED Code(s): 48493792 (3) Diffuse large B cell lymphoma Current Visit: Yes Status: Acute Priority: High Code(s): C83.30 - DIFFUSE LARGE B-CELL LYMPHOMA, UNSPECIFIED SITE SNOMED Code(s): 306259211 (4) Constipation Narrative/Plan: Continue with bowel regimen Current Visit: No Status: Acute Code(s): K59.00 - CONSTIPATION, UNSPECIFIED SNOMED Code(s): 81274151 Plan: 1. Continue symptomatic supportive care 2. Diabetes tolerated 3. Antiemetics as needed 4. Continue bowel regimen including MiraLAX daily, lactulose as needed 5. Continue antibiotics for seven days Thank you for this consultation, patient is cleared for discharge from gastroenterology. Dr. Luke Linder I agree with the dictator's note, documented as a scribe by Leticia Martinez.
[2022-01-20 11:30] LABS: Basophils % (A) 0 %; Eosinophils % (A) 0 %; HCT 34.6 % (34.0-46.0); HGB 11.9 gm/dL (11.4-16.0); Lymphocytes # (A) 0.6 k/uL (1.0-4.8); Lymphocytes % (A) 6 %; MCH 31.1 pg (25.0-35.0); MCHC 34.3 g/dL (31.0-37.0); MCV 90.8 fL (80.0-100.0); Mean Platelet Volume 7.9; Monocytes # (A) 0.4 k/uL (0-1.0); Monocytes % (A) 4 %; Neutrophils # (A) 9.3 k/uL (1.3-7.7); Neutrophils % (A) 88 %; Platelet Count 297 k/uL (150-450); RBC 3.81 m/uL (3.80-5.40); RDW 14.1 % (11.5-15.5); WBC 10.5 k/uL (3.8-10.6)
[2022-01-20] MEDS: VENLAFAXINE HCL ER 150 MG CAP PO SCH (12:28)
[2022-01-20 12:36] VITALS: BP 121/63; PULSE 100
[2022-01-20] MEDS ORDERED: SALT AND SODA MOUTHWASH 1,000 ML PO SCH (16:00)
--- NOTE | 2022-01-20 16:37 | P.PN ---
Subjective Progress Note Date: 01/20/22 Principal diagnosis: weakness, vomiting In f/u today pt has no acute c/o, no N,V, she is tolerating oral intake. Objective - Vital Signs Vital signs: Vital Signs Temp 98.1 F 01/20/22 08:00 Pulse 100 01/20/22 12:00 Resp 16 01/20/22 12:00 BP 121/63 01/20/22 12:00 Pulse Ox 98 01/20/22 12:00 FiO2 Intake & Output 01/19/22 01/20/22 01/20/22 18:59 06:59 18:59 Intake Total 118 240 Output Total 0 Balance 118 240 Intake: Oral 118 240 Output: Stool 0 Other: Voiding Method Toilet Toilet Toilet # Voids 1 2 # Bowel Movements 1 - Constitutional General appearance: Present: average body habitus, cooperative, no acute distress - EENT EENT Comment(s): glossal redness Eyes: Present: anicteric sclerae, EOMI ENT: Present: hearing grossly normal - Respiratory Respiratory: bilateral: CTA - Cardiovascular Rhythm: regular Heart sounds: normal: S1, S2 Abnormal Heart Sounds: Absent: systolic murmur, diastolic murmur, rub, S3 Gallop, S4 Gallop, click, other - Gastrointestinal General gastrointestinal: Present: normal bowel sounds, soft - Neurologic Neurologic: Present: CNII-XII intact - Musculoskeletal Musculoskeletal: Present: strength equal bilaterally - Psychiatric Psychiatric: Present: A&O x's 3, appropriate affect, intact judgment & insight - Labs CBC & Chem 7: 01/20/22 10:53 01/19/22 04:55 Labs: Abnormal Lab Results - Last 24 Hours (Table) 01/18/22 01/19/22 01/20/22 Range/Units 13:04 04:55 10:53 Neutrophils # 9.3 H (1.3-7.7) k/uL Lymphocytes # 0.6 L (1.0-4.8) k/uL % Saturation 52.61 H (12.00-45.00) Transferrin 167.0 L (204.0-354.0) mg/dL Ferritin 1824.0 H (10.0-291.0) ng/mL Vitamin B12 >2000.0 H (200.0-944.0) pg/mL Procalcitonin 0.56 H (0.02-0.09) ng/mL Microbiology - Last 24 Hours (Table) 01/18/22 13:04 Blood Culture - Preliminary Blood No Growth after 24 hours Assessment and Plan (1) Nausea & vomiting Status: Acute Priority: High Code(s): R11.2 - NAUSEA WITH VOMITING, UNSPECIFIED SNOMED Code(s): 20010114 (2) Dehydration Status: Acute Priority: High Code(s): E86.0 - DEHYDRATION SNOMED Code(s): 41685297 (3) Diffuse large B cell lymphoma Status: Acute Priority: High Code(s): C83.30 - DIFFUSE LARGE B-CELL LYMPHOMA, UNSPECIFIED SITE SNOMED Code(s): 938361623 Plan: Pt is s/p 1st cycle of RCHOP 12 days ago. She received GCSF. Mild anemia, work up for anemia most consistent with inflammation. No need for any transfusions. Dehydration 2/2 N,V. Olanzapine added with good results, cont. Zofran PRN. Rx sent for olanzapine Pt taking meds for constipation as needed. Plan is to continue treatment once pt has recovered adequately from her current condition-appt already made
[2022-01-21] MEDS ORDERED: polyethylene glycoL 3350 17 GM POWD.PACK PO SCH (09:00)
== END 2022-01-20 14:32 | disposition home or self-care (01) | DRG 683 ==
LOC: EC 15:57 → 5NMEDONC 17:54 → 3SCARD 18:27
PROVIDERS: ADMIT Hospitalist; ATTEND Hospitalist
DX: N17.9 Acute kidney failure, unspecified (principal); A09 Infectious gastroenteritis and colitis, unspecified; C83.33 Diffuse large B-cell lymphoma, intra-abdominal lymph nodes; E87.20 Acidosis, unspecified; K92.1 Melena; E87.1 Hypo-osmolality and hyponatremia; E86.0 Dehydration; E78.5 Hyperlipidemia, unspecified; Z20.822 Contact with and (suspected) exposure to COVID-19; R00.0 Tachycardia, unspecified; F32.A Depression, unspecified; E87.5 Hyperkalemia; E83.52 Hypercalcemia; R74.01 Elevation of levels of liver transaminase levels; F41.9 Anxiety disorder, unspecified; R63.0 Anorexia; Z68.22 Body mass index [BMI] 22.0-22.9, adult; D64.9 Anemia, unspecified; K59.09 Other constipation; E89.0 Postprocedural hypothyroidism; Z79.899 Other long term (current) drug therapy; Z79.890 Hormone replacement therapy; Z88.0 Allergy status to penicillin; Z87.891 Personal history of nicotine dependence
CPT/HCPCS: 36415; 71046; 74176; 80048; 80053; 80076; 81001; 81003; 82306; 82607; 82728; 82746; 83540; 83550; 83605; 83615; 83735; 83921; 84100; 84145; 84484; 84550; 85025; 87040; 87502; 87635; 93005; 96361; 96374; 99285

== ENCOUNTER → 2022-02-25 | Outpatient (CLI) | payer MEDICARE ==
[2022-02-25 12:50] LABS: African American GFR (CKD) >90 (>60 ml/min/1.73 sqM); Blood Urea Nitrogen 21 mg/dL (7-17); Non-African American GFR(CKD) >90 (>60 ml/min/1.73 sqM)
--- NOTE | 2022-02-25 13:49 | CT ---
EXAMINATION TYPE: CT ChestAbdPelvis w con DATE OF EXAM: 02/25/2022 COMPARISON: Prior CT abdomen and pelvis January 17, 2022 and older studies HISTORY: f/u lymphoma CT DLP: 1642 mGycm. Automated Exposure Control for Dose Reduction was Utilized. CONTRAST: CT scan of the thorax, abdomen and pelvis is performed with IV Contrast, patient injected with 70cc m L of Isovue 300. FINDINGS: LUNGS: Mild underlying emphysematous change. Lungs are clear without suspicious focal consolidation. There is no pleural effusion or pneumothorax seen. The tracheobronchial tree is patent. MEDIASTINUM: There are no greater than 1 cm hilar or mediastinal lymph nodes. No cardiomegaly or pe ricardial effusion is seen. OTHER: There is right internal jugular Mediport catheter terminating in the SVC. LIVER/GB: Cholecystectomy clips are redemonstrated. Prominent right hepatic lobe again seen. PANCREAS: No significant abnormality is seen. SPLEEN: Anterior-inferior splenule redemonstrated axial image 56. ADRENALS: No significant abnormality is seen. KIDNEYS: No significant abnormality is seen. BOWEL: No significant abnormality is seen. GENITAL ORGANS: Uterus surgically absent or markedly atrophic similar to prior. LYMPH NODES: Redemonstration of heterogeneous enhancing soft tissue in the retroperitoneum encasing p ortions of the abdominal aorta and the IVC measuring 3.7 cm AP diameter by 9.5 cm transversely axial image 72 x 5.5 cm craniocaudal dimension coronal image 48. This is diminished in size from prior stud y where it measured roughly 8.0 cm AP diameter by 12.5 cm transverse diameter by 12.7 cm craniocaudal diameter axial image 45 and coronal image 44. Local mass effect remains present. No new greater than 1.0 cm adenopathy in the pelvis. OSSEOUS STRUCTURES: Moderate axial joint space loss in both hips. OTHER: No significant additional abnormality is seen. IMPRESSION: Partial positive treatment response to known retroperitoneal mass or lymphoma. No new ad enopathy is identified.
== END | disposition home or self-care (01) ==
LOC: RADCTMAIN 11:34
PROVIDERS: ATTEND Internal Medicine
DX: C83.39 Diffuse large B-cell lymphoma, extranodal and solid organ sites (principal); R19.09 Other intra-abdominal and pelvic swelling, mass and lump
CPT/HCPCS: 82565; 84520; 71260; 74177; 36415; J1642; Q9967

== ENCOUNTER → 2022-06-08 | Outpatient (CLI) | payer MEDICARE ==
--- NOTE | 2022-06-08 11:17 | BD ---
EXAMINATION TYPE: Axial Bone Density DATE OF EXAM: 06/08/2022 CLINICAL HISTORY: 71 years old Female. ICD-10 CODE: M85.80 oth disorders of bone density/structure Comparison: Prior DEXA bone scan 2019 Height: 5 ft 7 in Weight: 167 FRAX RISK QUESTIONS: Alcohol (3 or more units per day): no Family History (Parent hip fracture): no Glucocorticoids (More than 3mos): no (Ex: prednisone, prednisolone, methylprednisolone, dexamethasone, and hydrocortisone). History of Fracture in Adulthood: yes Secondary Osteoporosis: 1. Type 1 Diabetes: no 2. Hyperthyroidism: removed 3. Menopause before 45: no 4. Malnutrition: no 5. Chronic liver disease: no Rheumatoid Arthritis: no Current Tobacco Use: no RISK FACTORS HISTORY OF: History of Wrist Fracture: left When: 8 years ago Surgery to Spine/Hip(right/left)/Wrist (right/left): no Family History of Osteoporosis: yes Active: yes Diet low in dairy products/other sources of calcium: no Postmenopausal woman: yes Take estrogen and/or progesterone medications: no Lost more than 2 inches in height since high school: no Frequent falls: no Poor Health: fair Hyperparathyroidism: no Adrenal Insufficiency: no MEDICATIONS: Thyroid Medications: yes Which medication: synthroid How Lon years Osteoporosis Medications: Which medication: How Long: Additional Medications: synthroid ,spironolactone, venlafaxine, Additional History: lymphoma chemo EXAM MEASUREMENTS: Bone mineral densitometry was performed using the Fannect System. Bone mineral density as measured about the Lumbar spine is: ----- L1-L4(G/cm2): 1.175 T Score Values are as follows: ----- L1: -0.4 ----- L2: -0.5 ----- L3: 0.3 ----- L4: 0.2 ----- L1-L4: 0.0 Z Score Values are as follows: ----- L1: 0.9 ----- L2: 0.8 ----- L3: 1.6 ----- L4: 1.5 ----- L1-L4: 1.3 Bone mineral density has: decreased -2.1 % since study of: Bone mineral density about the R hip (g/cm2): 0.791 Bone mineral density about the L hip (g/cm2): 0.796 T Score values are as follows: -----R Neck: -1.8 -----L Neck: -1.7 -----R Total: -0.9 -----L Total: -0.9 Z Score values are as follows: -----R Neck: -0.3 -----L Neck: -0.3 -----R Total: 0.3 -----L Total: 0.3 Bone mineral density has: decreased -3.3 % since study of: 2019 FRAX%s: The graph provided illustrates a 10.9 % chance for a major osteoporotic fx and a 1.9 % chance for the hips probability for fx in 10 years time. IMPRESSION: Osteopenia (T Score between -2.5 and -1) remains present. There is slightly increased risk of fracture and the patient may be considered for treatment. Re-Screen 2-5 years. NOTE: T-SCORE=SD OF THE YOUNG ADULT MEAN.
== END | disposition home or self-care (01) ==
LOC: RADBDWWP 09:08
PROVIDERS: ATTEND Family Medicine
DX: M85.89 Other specified disorders of bone density and structure, multiple sites (principal)
CPT/HCPCS: 77080

== ENCOUNTER → 2022-10-26 | Outpatient (CLI) | payer MEDICARE ==
[2022-10-26 13:43] LABS: African American GFR (CKD) 83 (>60 ml/min/1.73 sqM); Blood Urea Nitrogen 18 mg/dL (7-17); Non-African American GFR(CKD) 72 (>60 ml/min/1.73 sqM)
--- NOTE | 2022-10-27 15:11 | CT ---
EXAMINATION TYPE: CT ChestAbdPelvis w con DATE OF EXAM: 10/26/2022 INDICATION: Diffuse large B-Cell Lymphoma. COMPARISON: 02/25/2022 CT DLP: 1054.4 mGycm CONTRAST: Performed with Oral Contrast and with IV Contrast, patient injected with 100 ml mL of Isovue 300. TECHNIQUE: Axial images at 5 mm thick sections. Reconstructed images in the coronal plane. Delayed images through the kidneys. FINDINGS: CT CHEST: Portion of the thyroid visualized is normal. No suspicious lung nodules or focal infiltrates are present. No enlarged mediastinal or hilar adenopathy is evident. The ascending aorta diameter at the level of the main pulmonary artery is 3.4 cm. The main pulmonary artery diameter at the bifurcation is 2.[address] ABDOMEN: There is diffuse thickening surrounding the aorta with some soft tissue density posterior to inferior vena cava. Matted adenopathy is suspected. This terminates at approximately the bifurcat ion. No enlarged iliac chain perirectal adenopathy. No suspicious inguinal adenopathy. Liver: Normal Spleen: Normal Pancreas: Normal Adrenal glands: The adrenal glands are normal. Gallbladder: Surgically absent Kidneys: No masses are evident. No hydronephrosis is present. No cysts are present. Aorta: Vascular calcification is within the aorta. Inferior vena cava: Normal. CT PELVIS: Loops of bowel within the abdomen and pelvis are normal. There are loops of bowel which are incom pletely distended or lack oral contrast limiting their evaluation. Appendix: Normal as visualized. Urinary bladder: Normal. Genitourinary structures: Osseous structures: No suspicious lytic or sclerotic lesions. IMPRESSIONS: 1. Improving periaortic and retrocaval matted adenopathy. No new adenopathy evident.
== END | disposition home or self-care (01) ==
LOC: RADCTMAIN 12:57
PROVIDERS: ATTEND Internal Medicine
DX: C83.39 Diffuse large B-cell lymphoma, extranodal and solid organ sites (principal); M12.9 Arthropathy, unspecified; F41.9 Anxiety disorder, unspecified; Z71.3 Dietary counseling and surveillance
CPT/HCPCS: 82565; 84520; 71260; 74177; 36415; Q9967

== ENCOUNTER 2022-11-19 11:14 | Day surgery (SDC) | payer MEDICARE ==
[~2022-11-19 11:14] MED LIST changes: -ACETAMINOPHEN TAB 500 MG TAB PO PRN; -HEPARIN SODIUM,PORCINE/PF 5,000 UNIT/0.5 ML SYRINGE SQ PRN; +LACTATED RINGERS 1,000 ML IV SCH; +MIDAZOLAM 2 MG/2 ML VIAL IV PRN; -Pre Op ABX Message 1 EACH MISC MISCELLANE ONE
[2022-11-19 12:00] VITALS: RESP 16; TEMP 98.1
[2022-11-19] MEDS ORDERED: MIDAZOLAM 2 MG/2 ML VIAL ONE (12:09)
[2022-11-19] MEDS ORDERED: LIDOCAINE 2% INJ 20 MG/ML (2 ML VIAL) ONE (12:09)
[2022-11-19] MEDS ORDERED: fentaNYL (PF) 50 MCG/ML 2 ML AMP ONE (12:09)
[2022-11-19] MEDS ORDERED: PROPOFOL 10 MG/ML 20 ML VIAL IV ONE (12:09)
--- NOTE | 2022-11-19 12:15 | P.GSHP ---
History of Present Illness H&P Date: 11/19/22 Chief Complaint: Lymphoma 72-year-old female had Port-A-Cath placed last year for lymphoma. No longer using the catheter. She says it actually clogged up. Otherwise no issues with the port during its use. Past Medical History Past Medical History: Hyperlipidemia, Thyroid Disorder Additional Past Medical History / Comment(s): Diffuse large b cell lymphoma dx 11/2021 History of Any Multi-Drug Resistant Organisms: None Reported Past Surgical History: Cholecystectomy, Hysterectomy, Orthopedic Surgery Additional Past Surgical History / Comment(s): PARTIAL THYROIDECTOMY. LT ROTATOR CUFF REPAIRED. Past Anesthesia/Blood Transfusion Reactions: No Reported Reaction, Motion Sickness Past Psychological History: Depression Smoking Status: Never smoker Past Alcohol Use History: None Reported Additional Past Alcohol Use History / Comment(s): Quit smoking in 2007. Past Drug Use History: None Reported - Past Family History Mother Family Medical History: Pulmonary Embolus Mother Sister(s) Family Medical History: Cancer Medications and Allergies Home Medications Medication Instructions Recorded Confirmed Type Levothyroxine Sodium [Synthroid] 100 mcg PO QAM 09/07/14 11/19/22 History Spironolactone [Aldactone] 100 mg PO QAM 12/11/21 11/19/22 History Venlafaxine HCl ER [Effexor XR] 150 mg PO AC-LUNCH 12/11/21 11/19/22 History Clobetasol Propionate [Clobex 1 applic TOPICAL HS PRN 01/17/22 11/19/22 History [place] 0.05%] Ketoconazole 2% Cream [Nizoral 2%] 1 applic TOPICAL BID PRN 01/17/22 11/19/22 History Allergies Allergy/AdvReac Type Severity Reaction Status Date / Time Penicillins Allergy Unknown, + Verified 11/16/22 15:55 allergy testing as a child shrimp Allergy Rash/Hives Verified 11/16/22 15:55 around mouth Surgical - Exam Vital Signs Temp Pulse Resp BP Pulse Ox 98.1 F 93 16 142/83 98 11/19/22 11:59 11/19/22 11:59 11/19/22 11:59 11/19/22 11:59 11/19/22 11:59 Physical exam: General: Well-developed, well-nourished HEENT: Normocephalic, sclerae nonicteric Abdomen: Nontender, nondistended Extremities: No edema Neuro: Alert and oriented Right-sided Port-A-Cath in place Assessment and Plan (1) Diffuse large B cell lymphoma Narrative/Plan: 72-year-old female with lymphoma. We'll proceed with Port-A-Cath removal. Current Visit: No Status: Acute Priority: High Code(s): C83.30 - DIFFUSE LARGE B-CELL LYMPHOMA, UNSPECIFIED SITE SNOMED Code(s): 092344059
[2022-11-19] MEDS ORDERED: LIDOCAINE 1% INJ 10MG/ML (20 ML MDV) SQ ONE ×3 (12:22→12:30)
[2022-11-19 13:05] VITALS: BP 119/57; PULSE 89
[2022-11-19] MEDS ORDERED: ACETAMINOPHEN TAB 325 MG TAB PO PRN (13:07)
[2022-11-19] MEDS ORDERED: NALOXONE 0.4 MG/ML 1 ML VIAL IV PRN (13:07)
[2022-11-19] MEDS ORDERED: HYDROcodone/APAP 5-325MG 1 EACH TAB PO PRN (13:07)
--- NOTE | 2022-11-19 13:08 | P.OP ---
Date of Procedure: 11/19/22 Procedure(s) Performed: PREOPERATIVE DIAGNOSIS: Lymphoma POSTOPERATIVE DIAGNOSIS: Same PROCEDURE: Port-A-Cath removal SURGEON: Aniket EBL: Minimal ANESTHESIA: Sedation COMPLICATIONS: None OPERATIVE PROCEDURE: Patient was placed in the supine position. The patient was sedated per anesthesia that time. The chest was prepped and draped in the usual sterile fashion. The skin was localized with Marcaine solution. The previous incision was re-incised using a scalpel. The port was easily excised using acco mmodation of blunt dissection sharp dissection and electrocautery. The subcutaneous tissues were reapproximated using 3-0 Vicryl sutures. The skin was reapproximated using 4-0 Monocryl sutures. Skin glue was then applied. DISPOSITION: Stable to recovery room
== END 2022-11-19 13:29 | disposition home or self-care (01) ==
LOC: OR 11:14
PROVIDERS: ATTEND Surgery
DX: C83.33 Diffuse large B-cell lymphoma, intra-abdominal lymph nodes (principal); F32.A Depression, unspecified; Z86.59 Personal history of other mental and behavioral disorders; Z79.890 Hormone replacement therapy; Z88.0 Allergy status to penicillin
CPT/HCPCS: 36590; J2250; J1100; J0690; J2405; J2001 ×2; J3010; J2704

== ENCOUNTER → 2023-06-09 | Outpatient (CLI) | payer MEDICARE ==
[2023-06-09 13:40] LABS: African American GFR (CKD) >90 (>60 ml/min/1.73 sqM); Blood Urea Nitrogen 14 mg/dL (7-17); Non-African American GFR(CKD) 89 (>60 ml/min/1.73 sqM)
--- NOTE | 2023-06-09 14:25 | CT ---
EXAMINATION TYPE: CT ChestAbdPelvis w con CT DLP: 1125.8 mGycm, Automated exposure control for dose reduction was used. DATE OF EXAM: 06/09/2023 2:12 PM COMPARISON: CT 10/26/2022 CLINICAL INDICATION:Female, 72 years old with history of C83.33 LYMPHOMA; [facility], f/u lymphoma Technique: Multiple axial images of the chest, abdomen, and pelvis were obtained. Two-dimensional cor onal and sagittal reconstructions were obtained. Contrast used:100 mL of Isovue 300 with IV Contrast, Oral contrast used: with Oral Contrast Findings: CHEST: LUNGS/ PLEURA: The lung parenchyma appears unremarkable. AIRWAY: Patent and unremarkable. HEART: Size within normal limits. MEDIASTINUM: No gross evidence of adenopathy. VASCULATURE: No aortic aneurysm. MUSCULOSKELETAL: Moderate disc degeneration changes are present throughout the thoracolumbar spine. SOFT TISSUES/LYMPH NODES: Unremarkable. LOWER NECK: No significant findings. ABDOMEN: ABDOMEN LIVER: Unremarkable GALLBLADDER AND BILE DUCTS: Gallbladder surgically absent. No evidence of biliary duct dilation. PANCREAS: Unremarkable. SPLEEN: Unremarkable. ADRENAL GLANDS: Unremarkable. KIDNEYS AND URETERS: No evidence of hydronephrosis or renal calculus. The ureters are unremarkable. PELVIS BLADDER: Unremarkable REPRODUCTIVE: Unremarkable. ABDOMEN & PELVIS STOMACH AND BOWEL: Stomach and duodenum are unremarkable. No evidence of bowel obstruction. PERITONEUM: No evidence of pneumoperitoneum or free fluid. VASCULATURE: Mild atherosclerotic calcifications are present throughout the abdominal aorta and its b ranches. MUSCULOSKELETAL: No acute osseous abnormalities LYMPH NODES: There is redemonstration of prominent periaortic lymph nodes, mildly improved in the int erval. No evidence of new lymphadenopathy is appreciated. SOFT TISSUE/ABDOMINAL WALL: Unremarkable IMPRESSION: Continued mild interval improvement of periaortic lymphadenopathy. No evidence of new lymphadenopathy or intrathoracic abnormality.
== END | disposition home or self-care (01) ==
LOC: RADCTMAIN 12:04
PROVIDERS: ATTEND Internal Medicine
DX: C83.33 Diffuse large B-cell lymphoma, intra-abdominal lymph nodes (principal); M12.9 Arthropathy, unspecified; F41.9 Anxiety disorder, unspecified; Z71.3 Dietary counseling and surveillance
CPT/HCPCS: 82565; 84520; 71260; 74177; 36415; Q9967

== ENCOUNTER → 2023-08-12 | Outpatient (CLI) | payer MEDICARE ==
--- NOTE | 2023-08-18 11:47 | MM ---
Reason for Exam: Screening (asymptomatic). Last screening mammogram was performed 12 month(s) ago. Patient History: Menarche at age 15. First Full-Term at age 23. Hysterectomy at age 34. Maternal aunt had breast cancer, age 40. Paternal aunt had breast cancer. Risk Values: Kristy 5 year model risk: 1.6%. NCI Lifetime model risk: 4.3%. Prior Study Comparison: 11/16/2018 Bilateral Screening Mammogram, [facility]. 02/28/2020 Bilateral Screening Mammogram, [facility]. 07/23/2022 Bilateral MG 3D screening mammo w/cad, [facility]. Tissue Density: The breasts are heterogeneously dense, which may obscure small masses. Findings: Analyzed By CAD. There is no suspicious group of microcalcifications or new suspicious mass in either breast. Benign calcifications. Overall Assessment: Benign, BI-RAD 2 Management: Screening Mammogram of both breasts in 1 year. . Patient should continue monthly self-breast exams. A clinical breast exam by your physician is recommended on an annual basis. This exam should not preclude additional follow-up of suspicious palpable abnormalities. Note on Kristy scores and lifetime risk: 1. A Kristy score greater than 3% is considered moderate risk. If this is the case, consider specialist referral to assess eligibility for a risk reducing agent. 2. If overall lifetime risk for the development of breast cancer is 20% or higher, the patient may qualify for future screening with alternating mammogram and breast MRI. Electronically signed and approved by: Bunny Dominguez M.D. Radiologis
== END | disposition home or self-care (01) ==
LOC: RADMAMWWP 10:58
PROVIDERS: ATTEND Family Medicine
DX: Z12.31 Encounter for screening mammogram for malignant neoplasm of breast (principal); Z80.3 Family history of malignant neoplasm of breast
CPT/HCPCS: 77063; 77067

== ENCOUNTER 2024-03-06 11:03 | Day surgery (SDC) | payer MEDICARE ==
[~2024-03-06 11:03] MED LIST changes: -DEXAMETHASONE SOD PHOSPHATE 4 MG/ML 1 ML VIAL IV ONE; -LACTATED RINGERS 1,000 ML IV SCH; -ONDANSETRON 4 MG/2 ML VIAL IVP ONE; +Pre Op ABX Message 1 EACH MISC MISCELLANE ONE
[2024-03-06] MEDS: IV FLUID CONTINUATION 1,000 ML IV ONE (11:25)
[2024-03-06] MEDS: LACTATED RINGERS 1,000 ML IV SCH (11:48)
[2024-03-06] MEDS: ONDANSETRON 4 MG/2 ML VIAL IVP ONE (11:51)
[2024-03-06] MEDS: DEXAMETHASONE SOD PHOSPHATE 4 MG/ML 1 ML VIAL IV ONE (11:51)
[2024-03-06] MEDS ORDERED: PROPOFOL 10 MG/ML 20 ML VIAL IV ONE (12:03)
[2024-03-06] MEDS ORDERED: ceFAZolin 1 GM/50 ML BAG (PMX) ONE (12:03)
[2024-03-06] MEDS ORDERED: MIDAZOLAM 2 MG/2 ML VIAL ONE (12:03)
[2024-03-06] MEDS ORDERED: LIDOCAINE 1% INJ 10MG/ML (20 ML MDV) ONE (12:03)
[2024-03-06] MEDS: SODIUM CHLORIDE 0.9% 100 ML with ceFAZolin 2,000 MG IV ONE (12:15)
[2024-03-06] MEDS: BUPIVACAINE (PF) 0.25% 30 ML VIAL SQ ONE ×2 (12:23)
--- NOTE | 2024-03-06 12:59 | FL ---
Fluoroscopy History: INSERTION OF PORT A CATH LYMPHOMA 18 SEC FLUORO, DAP .[id number] mGym2, PORT-A-CATH INSERTION, LYMPHOMA [facility], , 03/06/2024 12:56 PM
[2024-03-06 13:44] VITALS: BP 152/96; PULSE 102; RESP 18
--- NOTE | 2024-03-06 14:01 | XR ---
EXAMINATION TYPE: XR chest 1V portable DATE OF EXAM: 03/06/2024 1:42 PM COMPARISON: 01/18/2022 CLINICAL INDICATION: Female, 73 years old with history of POST OP MEDIPORT, TECHNIQUE: Single frontal view of the chest is obtained. FINDINGS: MediPort catheter is noted within the SVC. No evidence for pneumothorax. There is no focal air space opacity, pleural effusion, or pneumothorax seen. The cardiac silhouette size is within no rmal limits. The osseous structures are intact. IMPRESSION: No acute process. [facility], , 03/06/2024 1:59 PM
--- NOTE | 2024-03-06 21:24 | P.OP ---
Date of Procedure: 03/06/24 Preoperative Diagnosis: B-cell lymphoma Postoperative Diagnosis: B-cell lymphoma Procedure(s) Performed: Mediport placement with fluoroscopic guidance Anesthesia: MAC Surgeon: David Alvarenga Pathology: none sent Condition: stable Disposition: same day Indications for Procedure: 73-year-old female with recurrent B-cell lymphoma. She is requiring Mediport placement for chemotherapy induction. She has had previous Mediport placement on the right side with removal in the past. Plan is for Mediport placement on the left side with anticipated subclavian access. Risks, benefits and alternatives were provided to the patient. All questions were answered. Operative Findings: Appropriate flush and withdrawal from Mediport site Description of Procedure: Patient was brought to the operating suite and placed in supine position on the operating table. Sedation was provided by anesthesia and patient was prepped and draped in regular sterile fashion. Left subclavian vein was accessed after local anesthetic was administered and nonpulsatile venous blood was noted. Guidewire was then placed in location was confirmed under fluoroscopy. At this point incision was made and dissection was carried to create a pocket site. Dilator sheath was placed over the guidewire and catheter was then placed and attached to the Mediport. Catheter appeared to be in position without any kinks in the catheter. Appropriate flush and withdrawal was noted from the Mediport site. It was secured to the prepectoralis fascia using 3-0 Prolene suture. Heparin lock was placed with continued appropriate flush and withdrawal from the Mediport site. Wound was then closed in layers with 3-0 and 4-0 subcuticular Vicryl suture. Sterile dressing was applied. The patient was taken to postanesthesia care unit in stable condition.
== END 2024-03-06 14:23 | disposition home or self-care (01) ==
LOC: OR 11:03
PROVIDERS: ATTEND Surgery
DX: C83.33 Diffuse large B-cell lymphoma, intra-abdominal lymph nodes (principal); E78.5 Hyperlipidemia, unspecified; E07.9 Disorder of thyroid, unspecified; F32.A Depression, unspecified; Z45.2 Encounter for adjustment and management of vascular access device; F41.9 Anxiety disorder, unspecified; Z88.0 Allergy status to penicillin; Z91.013 Allergy to seafood; Z87.891 Personal history of nicotine dependence; Z79.899 Other long term (current) drug therapy; Z79.890 Hormone replacement therapy
CPT/HCPCS: 77001; 71045; 36561; C1788; J2250; J1100; J2405; J0690 ×2; J2003; J1642; J2704; J0665

== ENCOUNTER 2024-08-15 06:16 | Day surgery (SDC) | payer MEDICARE ==
[2024-08-10 11:57] VITALS: BMI 24.7
[~2024-08-15 06:16] MED LIST changes: -HYDROmorphone 0.5 MG/0.5 ML SYRINGE IVP PRN; +LIDOCAINE 1% (10MG/ML) FOR IV START INTRADERMA PRN; -MIDAZOLAM 2 MG/2 ML VIAL IV PRN; -Pre Op ABX Message 1 EACH MISC MISCELLANE ONE
[2024-08-15 06:57] VITALS: TEMP 96.6
[2024-08-15] MEDS: LIDOCAINE 2% INJ 20 MG/ML SQ ONE (07:12)
[2024-08-15] MEDS: LACTATED RINGERS 1,000 ML IV SCH (07:14)
[2024-08-15] MEDS: NORFLURANE/PENTAFLUOROPROPANE 103.5 ML SPRAY (PAIN EASE) TOPICAL ONE ×2 (07:15→07:20)
[2024-08-15] MEDS ORDERED: PROPOFOL 10 MG/ML 20 ML VIAL IV ONE (07:22)
[2024-08-15 08:22] VITALS: BP 109/71; PULSE 87; RESP 18
[2024-08-15 08:33] LABS: Basophils # (A) 0.04 10*3/uL (0.00-0.10); Basophils % (A) 0.7 %; Eosinophils # (A) 0.11 10*3/uL (0.04-0.35); Eosinophils % (A) 1.8 %; HCT 38.4 % (37.2-46.3); HGB 13.1 g/dL (12.0-15.0); Lymphocytes # (A) 1.12 10*3/uL (0.90-5.00); Lymphocytes % (A) 18.7 %; MCH 33.1 pg (27.0-32.0); MCHC 34.1 g/dL (32.0-37.0); Mean Platelet Volume 10.2 fL (9.5-12.2); Monocytes # (A) 0.65 10*3/uL (0.20-1.00); Monocytes % (A) 10.8 %; Neutrophils # (A) 4.07 10*3/uL (1.80-7.70); Neutrophils % (A) 67.8 %; Platelet Count 241 10*3/uL (140-440); RBC 3.96 10*6/uL (4.10-5.20); RDW 12.3 % (11.5-14.5)
[2024-08-15 15:52] LABS: Reticulocyte % 1.14 % (0.10-1.80)
--- NOTE | 2024-08-17 10:06 | OP ---
OPERATIVE REPORT DATE OF SERVICE : PROCEDURE PERFORMED: Bone marrow biopsy with general and local sedation. DESCRIPTION OF PROCEDURE: After being placed in the left lateral decubitus position, the right posterior iliac spine, followed by palpation of the right iliac crest was noted. This area was sterilized with three swabs of Betadine and three swabs of alcohol, following administration of general anesthesia. A 0.3 cm incision into the subcutaneous tissue was made, along with administration of 10 mL of 1% local lidocaine. A 4 inch Jamshidi needle was then advanced through the periosteum. Initial pass obtained little aspirate, subsequently pass obtained a total of 20 mL of aspirate. A 0.5 cm core biopsy was then obtained, samples will be sent for morphology and flow cytometry to assess for the presence of diffuse large B-cell lymphoma. Less than 1 mL of blood loss was noted during the postoperative and was tolerated well without any complications. She is to return to the postoperative area in stable condition. We will follow up on the results of bone marrow biopsy in clinic. MMODL / IJN: [id number] /
== END 2024-08-15 08:58 | disposition home or self-care (01) ==
LOC: OR 06:16
PROVIDERS: ATTEND Internal Medicine
DX: C83.33 Diffuse large B-cell lymphoma, intra-abdominal lymph nodes (principal)
CPT/HCPCS: 85025; 85045; 38222; J2704; J2003

== ENCOUNTER → 2024-08-31 | Outpatient (CLI) | payer MEDICARE ==
--- NOTE | 2024-08-31 15:16 | MM ---
Reason for Exam: Screening (asymptomatic). Last mammogram was performed 1 year(s) and 1 month(s) ago. Patient History: Menarche at age 15. First Full-Term at age 23. Hysterectomy at age 34. Maternal aunt had breast cancer, age 40. Paternal aunt had breast cancer. Risk Values: Kristy 5 year model risk: 1.6%. NCI Lifetime model risk: 4.1%. Prior Study Comparison: 02/28/2020 Bilateral Screening Mammogram, [facility]. 07/23/2022 Bilateral MG 3D screening mammo w/cad, [facility]. 08/12/2023 Bilateral MG 3D screening mammo w/cad, [facility]. Tissue Density: The breasts are heterogeneously dense, which may obscure small masses. Findings: Analyzed By CAD. A loosely grouped calcifications upper outer aspect left breast no dominant mass. Mediport catheter partially occluded. Density along the posterior margin of the right breast on CC view is stable compared to prior exams. Overall Assessment: Incomplete: need additional imaging evaluation, BI-RAD 0 Management: Special View Mammogram of the left breast. . Patient should continue monthly self-breast exams. A clinical breast exam by your physician is recommended on an annual basis. This exam should not preclude additional follow-up of suspicious palpable abnormalities. Note on Kristy scores and lifetime risk: 1. A Kristy score greater than 3% is considered moderate risk. If this is the case, consider specialist referral to assess eligibility for a risk reducing agent. 2. If overall lifetime risk for the development of breast cancer is 20% or higher, the patient may qualify for future screening with alternating mammogram and breast MRI. [facility], , 08/31/2024 3:14 PM. Electronically signed and approved by: Bunny Dominguez M.D. Radiologis
--- NOTE | 2024-09-01 07:51 | BD ---
EXAMINATION TYPE: Axial Bone Density DATE OF EXAM: 08/31/2024 CLINICAL HISTORY: 74 years old Female. ICD-10 CODE: Z78.0 ASYMPT MENOPAUSAL , Additional History: Height: 66.5 Weight: 161 FRAX RISK QUESTIONS: History of Fracture in Adulthood: yes Secondary Osteoporosis: 2. Hyperthyroidism: removed RISK FACTORS HISTORY OF: History of Wrist Fracture: left When: about 10 years ago MEDICATIONS: Thyroid Medications: Which medication: Levothyroxine How Long: about 45 years EXAM MEASUREMENTS: Bone mineral densitometry was performed using the [employer] [facility]. Bone mineral density as measured about the Lumbar spine is: ----- L1-L4(G/cm2): 1.191 T Score Values are as follows: ----- L1: -1.2 ----- L2: 0.1 ----- L3: 0.2 ----- L4: 0.8 ----- L1-L4: 0.1 Z Score Values are as follows: ----- L1: 0.2 ----- L2: 1.6 ----- L3: 1.6 ----- L4: 2.3 ----- L1-L4: 1.5 Bone mineral density has: Increased 1.4% since study of: 06-08-22 Bone mineral density about the R hip (g/cm2): 0.879 Bone mineral density about the L hip (g/cm2): 0.864 T Score values are as follows: -----R Neck: -1.7 -----L Neck: -1.7 -----R Total: -1.0 -----L Total: -1.1 Z Score values are as follows: -----R Neck: -0.1 -----L Neck: -0.1 -----R Total: 0.4 -----L Total: 0.2 Bone mineral density has: Decreased -2.4% since study of: 06-08-22 FRAX%s: The graph provided illustrates a 17.7% chance for a major osteoporotic fx and a 3.2% chance f or the hips probability for fx in 10 years time. IMPRESSION: Osteopenia (T Score between -2.5 and -1). There is slightly increased risk of fracture and the patient may be considered for treatment. Re-Screen 2-5 years. NOTE: T-SCORE=SD OF THE YOUNG ADULT MEAN. [facility], , 09/01/2024 7:49 AM
== END | disposition home or self-care (01) ==
LOC: RADMAMWWP 14:42
PROVIDERS: ATTEND Family Medicine
DX: Z12.31 Encounter for screening mammogram for malignant neoplasm of breast (principal); R92.333 Mammographic heterogeneous density, bilateral breasts; M85.89 Other specified disorders of bone density and structure, multiple sites; Z78.0 Asymptomatic menopausal state; Z80.3 Family history of malignant neoplasm of breast
CPT/HCPCS: 77063; 77067; 77080

== ENCOUNTER 2024-09-04 09:17 | Inpatient (IN) | payer MEDICARE ==
[~2024-09-04 09:17] MED LIST changes: -LIDOCAINE 1% (10MG/ML) FOR IV START INTRADERMA PRN; +ONDANSETRON 4 MG/2 ML VIAL IVP PRN
[2024-09-04 12:40] LABS: Basophils # (A) 0.03 10*3/uL (0.00-0.10); Basophils % (A) 0.6 %; Eosinophils # (A) 0.01 10*3/uL (0.04-0.35); Eosinophils % (A) 0.2 %; HCT 38.5 % (37.2-46.3); Lymphocytes # (A) 0.51 10*3/uL (0.90-5.00); Lymphocytes % (A) 9.4 %; MCH 31.9 pg (27.0-32.0); MCHC 33.8 g/dL (32.0-37.0); MCV 94.6 fL (80.0-97.0); Mean Platelet Volume 9.8 fL (9.5-12.2); Monocytes # (A) 0.06 10*3/uL (0.20-1.00); Monocytes % (A) 1.1 %; Neutrophils # (A) 4.81 10*3/uL (1.80-7.70); Neutrophils % (A) 88.3 %; Platelet Count 203 10*3/uL (140-440); RBC 4.07 10*6/uL (4.10-5.20); RDW 12.4 % (11.5-14.5); WBC 5.44 10*3/uL (4.50-10.00)
[2024-09-04 12:52] LABS: ALT 23 U/L (4-34); AST 27 U/L (14-36); African American GFR (CKD) 58 (>60 ml/min/1.73 sqM); Albumin 3.9 g/dL (3.5-5.0); Albumin/Globulin Ratio 1.8; Alkaline Phosphatase 84 U/L (38-126); Anion Gap 10 mmol/L; Blood Urea Nitrogen 21 mg/dL (7-17); Calcium 9.4 mg/dL (8.4-10.2); Carbon Dioxide 24 mmol/L (22-30); Chloride 106 mmol/L (98-107); Globulin 2.2 g/dL; Glucose 211 mg/dL (74-99); Non-African American GFR(CKD) 50 (>60 ml/min/1.73 sqM); Phosphorus 2.4 mg/dL (2.5-4.5); Potassium 4.2 mmol/L (3.5-5.1); Sodium 140 mmol/L (137-145); Total Bilirubin 0.3 mg/dL (0.2-1.3); Total Protein 6.1 g/dL (6.3-8.2); Uric Acid 4.5 mg/dL (3.7-7.4)
[2024-09-04] MEDS: ONDANSETRON 16 MG in SODIUM CHLORIDE 0.9% 50 ML IVPB SCH (13:16)
[2024-09-04] MEDS: SODIUM CHLORIDE 0.9% 1,000 ML IV SCH (13:17)
[2024-09-04] MEDS: FAMOTIDINE 20 MG/2 ML VIAL IV SCH (13:17)
[2024-09-04] MEDS: ETOPOSIDE 180 MG in SODIUM CHLORIDE 0.9% 500 ML 500 ML IV SCH (13:51)
[2024-09-04] MEDS: SALT AND SODA MOUTHWASH 1,000 ML PO SCH (17:30)
[2024-09-04] MEDS: DOCUSATE 100 MG CAP PO SCH (20:47)
[2024-09-05] MEDS: LEVOTHYROXINE 100 MCG TAB PO SCH (05:34)
[2024-09-05 08:15] LABS: Basophils # (A) 0.01 X 10*3/uL (0.00-0.10); Basophils % (A) 0.1 %; Eosinophils # (A) 0 X 10*3/uL (0.04-0.35); Eosinophils % (A) 0 %; HCT 37.3 % (37.2-46.3); HGB 12.2 g/dL (12.0-15.0); Lymphocytes # (A) 0.41 X 10*3/uL (0.90-5.00); MCH 31.4 pg (27.0-32.0); MCHC 32.7 g/dL (32.0-37.0); MCV 95.9 FL (80.0-97.0); Mean Platelet Volume 10.2 FL (9.5-12.2); Monocytes # (A) 0.13 X 10*3/uL (0.20-1.00); Monocytes % (A) 1.6 %; NRBC Per 100 WBC 0 X 10*3/uL (0.00-0.01); Neutrophils # (A) 7.53 X 10*3/uL (1.80-7.70); Neutrophils % (A) 92.8 %; Platelet Count 197 X 10*3/uL (140-440); RBC 3.89 X 10*6/uL (4.10-5.20); RDW 12.5 % (11.5-14.5); WBC 8.12 X 10*3/uL (4.50-10.00)
[2024-09-05 08:20] LABS: ALT 23 U/L (8-44); AST 20 U/L (13-35); Albumin 3.9 g/dL (3.8-4.9); Albumin/Globulin Ratio 2.17 Ratio (1.60-3.17); Alkaline Phosphatase 77 U/L (41-126); BUN/Creat Ratio 15.07 Ratio (12.00-20.00); Blood Urea Nitrogen 21.1 mg/dL (9.0-27.0); Carbon Dioxide 21.7 mmol/L (21.6-31.8); Chloride 110 mmol/L (96-109); Globulin 1.8 g/dL (1.6-3.3); Glucose 153 mg/dL (70-110); Phosphorus 3.4 mg/dL (2.4-5.1); Potassium 4.7 mmol/L (3.5-5.5); Sodium 140 mmol/L (135-145); Total Bilirubin 0.2 mg/dL (0.3-1.2); Total Protein 5.7 g/dL (6.2-8.2); Uric Acid 4.9 mg/dL (2.9-7.7)
[2024-09-05] MEDS ORDERED: MAGNESIUM PO SCH (09:00)
[2024-09-05] MEDS: ENOXAPARIN 40 MG/0.4 ML SYRINGE SQ SCH (10:54)
[2024-09-05] MEDS: SPIRONOLACTONE 25 MG TAB PO SCH (12:59)
[2024-09-05] MEDS: DEXAMETHASONE SOD PHOSPHATE 10 MG/ML 1 ML VIAL IV SCH (13:00)
[2024-09-05 13:56] VITALS: BMI 26.2
[2024-09-05] MEDS: SODIUM CHLORIDE 0.9% IV ONE ×3 (14:39→16:58)
[2024-09-05] MEDS: CARBOPLATIN IV ONE (14:39)
[2024-09-05 14:40] LABS: Appearance,Urine Clear (Clear); Bilirubin,Urine Negative (Negative); Blood,Urine Negative (Negative); Color,Urine Colorless; Glucose,Urine (UA) Negative (Negative); Ketones,Urine Negative (Negative); Leukocyte Esterase,Urine Negative (Negative); Nitrite,Urine Negative (Negative); Protein,Urine Negative (Negative); Specific Gravity,Urine 1.011 (1.001-1.035); Urobilinogen,Urine <2.0 mg/dL (<2.0)
--- NOTE | 2024-09-05 15:21 | P.PN ---
Subjective Progress Note Date: 09/05/24 Patient tolerating treatment. Reporting feeling flushed. Denies n/v/d, and hematuria. Tolerating oral intake. Blood counts stable, HDS Objective - Vital Signs Vital signs: Vital Signs Temp 97.6 F 09/05/24 12:00 Pulse 93 09/05/24 12:00 Resp 16 09/05/24 12:00 BP 101/63 09/05/24 12:00 Pulse Ox 99 09/05/24 12:00 FiO2 Intake & Output 09/04/24 09/05/24 09/05/24 18:59 06:59 18:59 Intake Total 540 Balance 540 Weight 73.7 kg Intake: Oral 540 Other: Voiding Method Toilet # Voids 2 1 - Constitutional General appearance: Present: average body habitus, no acute distress - EENT Eyes: Present: anicteric sclerae, EOMI - Respiratory Details: breathing is even and unlabored - Cardiovascular Details: skin warm and dry - Gastrointestinal General gastrointestinal: Present: soft. Absent: tenderness - Integumentary Integumentary Comment(s): facial flushing Integumentary: Absent: cyanotic, jaundiced - Musculoskeletal Musculoskeletal: Present: strength equal bilaterally - Psychiatric Psychiatric: Present: A&O x's 3 - Labs CBC & Chem 7: 09/05/24 02:31 09/05/24 02:31 Labs: Abnormal Lab Results - Last 24 Hours (Table) 09/04/24 09/04/24 09/05/24 Range/Units 12:29 12:29 02:31 RBC 4.07 L 3.89 L (4.10-5.20) 10*6/uL Lymphocytes # 0.51 L 0.41 L (0.90-5.00) 10*3/uL Monocytes # 0.06 L 0.13 L (0.20-1.00) 10*3/uL Eosinophils # 0.01 L 0 L (0.04-0.35) 10*3/uL Chloride (96-109) mmol/L BUN 21 H (7-17) mg/dL Creatinine 1.11 H (0.52-1.04) mg/dL Est GFR (CKD-EPI) (>=60) Glucose 211 H (74-99) mg/dL Phosphorus 2.4 L (2.5-4.5) mg/dL Total Bilirubin (0.3-1.2) mg/dL Total Protein 6.1 L (6.3-8.2) g/dL 09/05/24 Range/Units 02:31 RBC (4.10-5.20) 10*6/uL Lymphocytes # (0.90-5.00) 10*3/uL Monocytes # (0.20-1.00) 10*3/uL Eosinophils # (0.04-0.35) 10*3/uL Chloride 110 H (96-109) mmol/L BUN (7-17) mg/dL Creatinine (0.52-1.04) mg/dL Est GFR (CKD-EPI) 40 L (>=60) Glucose 153 H (74-99) mg/dL Phosphorus (2.5-4.5) mg/dL Total Bilirubin 0.2 L (0.3-1.2) mg/dL Total Protein 5.7 L (6.3-8.2) g/dL Assessment and Plan (1) Diffuse large B cell lymphoma Current Visit: Yes Status: Acute Priority: High Code(s): C83.30 - DIFFUSE LARGE B-CELL LYMPHOMA, UNSPECIFIED SITE SNOMED Code(s): 906893706 Plan: Diffuse large b-call Lymphoma: -Oncology history as dictated in the HPI. Admitted for inpt treatment, ICE. R uxience given in clinic on 09/04 prior to admit -Chemo orders placed -Supportive medications in place -CBC, CMP, UA daily -Day 2, pt tolerating treatment well -Labs stable -Continue to closely monitor
[2024-09-05] MEDS: IFOSFAMIDE IV ONE (16:58)
[2024-09-05] MEDS: MESNA IV ONE (16:58)
[2024-09-05] MEDS ORDERED: VITAMIN D3 PO SCH (21:00)
[2024-09-05] MEDS ORDERED: FISH OIL PO SCH (21:00)
[2024-09-05] MEDS: VENLAFAXINE HCL ER 150 MG CAP PO SCH (21:07)
[2024-09-05] MEDS: VITAMIN B COMPLEX PO SCH (21:07)
[2024-09-05] MEDS: ATORVASTATIN 20 MG TAB PO SCH (21:07)
[2024-09-06 06:22] LABS: Basophils # (A) 0.01 10*3/uL (0.00-0.10); Basophils % (A) 0.1 %; HCT 39.4 % (37.2-46.3); HGB 12.3 g/dL (12.0-15.0); Lymphocytes # (A) 0.37 10*3/uL (0.90-5.00); Lymphocytes % (A) 3.2 %; MCH 31.9 pg (27.0-32.0); MCHC 31.2 g/dL (32.0-37.0); Mean Platelet Volume 9.8 fL (9.5-12.2); Monocytes # (A) 0.51 10*3/uL (0.20-1.00); Monocytes % (A) 4.5 %; Neutrophils # (A) 10.51 10*3/uL (1.80-7.70); Neutrophils % (A) 91.8 %; Platelet Count 169 10*3/uL (140-440); RBC 3.85 10*6/uL (4.10-5.20); RDW 12.4 % (11.5-14.5); WBC 11.45 10*3/uL (4.50-10.00)
[2024-09-06 06:40] LABS: MCV 102.3 fL (80.0-97.0)
[2024-09-06 07:38] VITALS: RESP 20
[2024-09-06 08:19] LABS: ALT 33 U/L (8-44); AST 22 U/L (13-35); Albumin 3.9 g/dL (3.8-4.9); Albumin/Globulin Ratio 2.05 Ratio (1.60-3.17); Alkaline Phosphatase 72 U/L (41-126); BUN/Creat Ratio 16.09 Ratio (12.00-20.00); Blood Urea Nitrogen 17.7 mg/dL (9.0-27.0); Calcium 8.7 mg/dL (8.7-10.3); Carbon Dioxide 21.5 mmol/L (21.6-31.8); Chloride 113 mmol/L (96-109); Globulin 1.9 g/dL (1.6-3.3); Glucose 118 mg/dL (70-110); Phosphorus 3.2 mg/dL (2.4-5.1); Potassium 4.3 mmol/L (3.5-5.5); Sodium 143 mmol/L (135-145); Total Bilirubin <0.2 mg/dL (0.3-1.2); Total Protein 5.8 g/dL (6.2-8.2); Uric Acid 3.4 mg/dL (2.9-7.7)
--- NOTE | 2024-09-06 09:56 | P.HPIM ---
History of Present Illness H&P Date: 09/04/24 Chief Complaint: CIVI chemo, prending Auto SCT Ms. Cheng is a 72 year old woman who is has started started treatment for relapsed refractory DLBC lymphoma about 19 months after initial treatment. [facility] with persistent abdominal pain and constipation. She was found to have BETH and hypercalcemia on initial presentation. CT AP revealed retroperitoneal mass measuring 15.8 x 9.4 x 15.5 cm encasing the aorta causing displacement anteriorly. Displacement of the IVC and other renal vessels bilaterally was also noted. She was given IVF, bisphosphonate, and calcitonin for treatment of hypercalcemia. CT guided biopsy of the mass on 12/12/21 noted diffuse large B-cell lymphoma that was ABC subtype. It was positive for CD45 and CD20 and negative for CD10. Ki-67 was noted to be 70-80%. Flow cytometry from the lesion was positive for CD19, CD20, CD38, CD45 and negative for CD3, CD5, CD10, CD11c, CD23. FISH noted no MYC or BCL-6 rearrangement, but did note 40% of nuclei revealing 3-6 BCL2 signals consistent with trisomy 18 or gain 18q. She had echo on 12/17/21, which noted EF 50-55%. CT chest on 12/17/21 noted no lympadenopathy above the diaphragm. She was discharged on 12/18/21 and had port placement on 12/25/21. Labs from her admission were notable for normal LDH, negative hepatitis panel and uric acid 7.1. Treatment with R-CHOP was started on 01/07/2022 and received the first 4 cycles with our clinic and completed the last 2 cycles of R-CHOP in [place] with cycle 6 on 04/24/2022. Post-treatment PET/CT on 05/11/2022 noted residual retroperitoneal mass measuring 7.8 cm in the largest diameter with an SUV of 2.6. Repeat PET/CT 07/03/2022 did not note retroperitoneal mass, but did note mild nonspecific FDG uptake with an SUV of 2.7. Repeat surveillance imaging had not shown any evidence of recurrent lymphoma, but did note residual retroperitoneal mass. Most recent CT AP 11/08/2023 at [facility] revealed retroperitoneal mass and retrocaval lymphadenopathy. PET/CT performed on 12/09/2023 noted FDG avid retroperitoneal retrocaval lymphadenopathy that was not previously visualized. Biopsy of retroperitoneal lymphadenopathy on 01/28/2024 was consistent with high-grade diffuse large B-cell lymphoma that was ABC subtype and positive for double expressor (BCL2 and BCL6 by IHC, 40% MYC expression), FISH was negative for MYC rearrangement and was negative for double hit. It discussed that she would need salvage chemotherapy with R-ICE for at least 2-3 cycles followed by autologous stem cell transplant. She did have consultation with Dr. Powers of [facility] in [place] in February 2024 prior to going to [place] for salvage chemotherapy. She completed 3 cycles of R-ICE on 05/24/2024. CT CAP 06/28/2024 noting decreased size in the retrocaval lymphadenopathy now measuring 4.7 x 3 cm from 7.6 cm with no new lymphadenopathy or lesions. PET/CT was subsequently obtained on 07/13/2024 that revealed significant reduction in size of the retroperitoneal mass along with reduction in SUV of the retroperitoneal mass to a Deauville score of 3 (6.8 from 45) as well as right periaortic lymph node with a Deauville score of 2 (2.8 from 36.9). Bone marrow biopsy on 08/15/2024 revealed no evidence of lymphoma. Following discussion with transplant team at [facility], she is scheduled to receive additional cycle of R-ICE on while waiting for transplant insurance prior authorization, which she is admitted for. On admit she has no c/o on a 14 point ROS. Review of Systems 14 point ROS is neg Past Medical History Past Medical History: Cancer, Hyperlipidemia, Osteoarthritis (OA), Renal Disease, Thyroid Disorder Additional Past Medical History / Comment(s): Diffuse large b cell lymphoma dx 11/2021 - chemo 18 months ago; stage 3 kidney disease History of Any Multi-Drug Resistant Organisms: None Reported Past Surgical History: Cholecystectomy, Hysterectomy, Orthopedic Surgery Additional Past Surgical History / Comment(s): PARTIAL THYROIDECTOMY. LT ROTATOR CUFF REPAIRED. left knee arthroscopy. isis carpal tunnel surg Past Anesthesia/Blood Transfusion Reactions: No Reported Reaction, Motion Sickness Additional Past Anesthesia/Blood Transfusion Reaction / Comment(s): With last biopsy of tumor had PONV, thinks "may have been from Fentanyl, never had Fentanyl before." Past Psychological History: Anxiety Smoking Status: Former smoker Past Alcohol Use History: None Reported Past Drug Use History: None Reported - Past Family History Mother Family Medical History: Pulmonary Embolus Mother Sister(s) Family Medical History: Cancer Occupational Seizure History - Commerical Driving History Currently uses [employer] for employment (including self-employed).: No Medications and Allergies Home Medications Medication Instructions Recorded Confirmed Type Levothyroxine Sodium [Synthroid] 100 mcg PO MOTUWETHFR 09/07/14 09/04/24 History Spironolactone [Aldactone] 100 mg PO DAILY 12/11/21 09/04/24 History Venlafaxine HCl ER [Effexor XR] 150 mg PO HS 12/11/21 09/04/24 History Rosuvastatin [Crestor] 10 mg PO HS 08/10/24 09/04/24 History Fish Oil(Unknown Dose) 1 cap PO HS 09/04/24 09/04/24 History Levothyroxine Sodium [Synthroid] 50 mcg PO SUSA 09/04/24 09/04/24 History Magnesium(Unknown Dose) 1 tab PO DAILY 09/04/24 09/04/24 History Vitamin B Complex 1 cap PO HS 09/04/24 09/04/24 History Vitamin D3(Unknown Dose) 1 cap PO HS 09/04/24 09/04/24 History Allergies Allergy/AdvReac Type Severity Reaction Status Date / Time Penicillins Allergy Unknown, + Verified 09/04/24 11:48 allergy testing as a child shrimp Allergy Rash/Hives Verified 09/04/24 11:48 around mouth erythromycin base AdvReac Diarrhea Verified 09/04/24 11:48 Physical Exam Vitals: Vital Signs Temp Pulse Resp BP Pulse Ox 09/04/24 11:24 97.7 F 78 18 102/66 100 Intake and Output 09/03/24 09/04/24 09/04/24 22:59 06:59 14:59 Other: Weight 73.7 kg - Constitutional General appearance: average body habitus, cooperative, no acute distress - EENT Eyes: anicteric sclerae, EOMI ENT: hearing grossly normal, normal oropharynx - Neck Neck: no lymphadenopathy - Respiratory Respiratory: bilateral: CTA - Cardiovascular Rhythm: regular Heart sounds: normal: S1, S2 Abnormal Heart Sounds: no systolic murmur, no diastolic murmur, no rub, no S3 Gallop, no S4 Gallop, no click, no other leg Peripheral Edema: bilateral: None - Gastrointestinal General gastrointestinal: no absent bowel sounds, no decreased bowel sounds, no distended, no hepatomegaly, no hyperactive bowel sounds, normal bowel sounds, no organomegaly, no rigid, no scaphoid, soft, no splenomegaly, no tenderness, no umbilical hernia, no ventral hernia - Integumentary Integumentary: normal - Neurologic Neurologic: CNII-XII intact - Musculoskeletal Musculoskeletal: strength equal bilaterally - Psychiatric Psychiatric: A&O x's 3, appropriate affect, intact judgment & insight Results CBC & Chem 7: 09/04/24 12:29 09/04/24 12:29 Thrombosis Risk Factor Assmnt - DVT/VTE Prophylaxis DVT/VTE Prophylaxis: Pharmacologic Prophylaxis ordered Assessment and Plan (1) Diffuse large B cell lymphoma Current Visit: Yes Status: Acute Priority: High Code(s): C83.30 - DIFFUSE LARGE B-CELL LYMPHOMA, UNSPECIFIED SITE SNOMED Code(s): 126022417 Plan: Relapsed DLBCL -History and treatment as documented in HPI -Admit for CIVI Rituxan(given outpt) ICE to be given over the next 3 days -Supportive medications ordered -Oral care -Ambulation -GI and DVT prophylaxis -Labs daily -Daily follow up -Home medications reconciled Doctor attests: I performed a history and physical examination of this patient, developed impression and plan of care. Discussed with dictator. I agree with dictators note, documented as a scribe.
[2024-09-06 12:14] LABS: Appearance,Urine Clear (Clear); Bilirubin,Urine Negative (Negative); Blood,Urine Negative (Negative); Color,Urine Colorless; Glucose,Urine (UA) 2+ (Negative); Leukocyte Esterase,Urine Negative (Negative); Nitrite,Urine Negative (Negative); PH, Urine 6.5 (5.0-8.0); Protein,Urine Negative (Negative); Specific Gravity,Urine 1.011 (1.001-1.035); Urobilinogen,Urine <2.0 mg/dL (<2.0)
[2024-09-06 12:22] LABS: Ketones,Urine 4+ (Negative)
[2024-09-06 16:32] VITALS: BP 93/53; PULSE 104; TEMP 98.7
--- NOTE | 2024-09-06 17:16 | P.DS ---
Providers Date of admission: 09/04/24 11:08 Attending physician: Thais Gupta MD Primary care physician: Austen Garcia - Discharge Diagnosis(es) (1) Diffuse large B cell lymphoma Current Visit: Yes Status: Acute Priority: High Hospital Course: Tolerated treatment well. Labs stable. HDS Patient Condition at Discharge: Good Plan - Discharge Summary Discharge Rx Participant: Yes New Discharge Prescriptions: No Action Levothyroxine Sodium [Synthroid] 100 mcg PO MOTUWETHFR Levothyroxine Sodium [Synthroid] 50 mcg PO SUSA Vitamin D3(Unknown Dose) 1 cap PO HS Venlafaxine HCl ER [Effexor XR] 150 mg PO HS Spironolactone [Aldactone] 100 mg PO DAILY Rosuvastatin [Crestor] 10 mg PO HS Vitamin B Complex 1 cap PO HS Magnesium(Unknown Dose) 1 tab PO DAILY Fish Oil(Unknown Dose) 1 cap PO HS Discharge Medication List Levothyroxine Sodium [Synthroid] 100 mcg PO MOTUWETHFR 09/07/14 [History] Spironolactone [Aldactone] 100 mg PO DAILY 12/11/21 [History] Venlafaxine HCl ER [Effexor XR] 150 mg PO HS 12/11/21 [History] Rosuvastatin [Crestor] 10 mg PO HS 08/10/24 [History] Fish Oil(Unknown Dose) 1 cap PO HS 09/04/24 [History] Levothyroxine Sodium [Synthroid] 50 mcg PO SUSA 09/04/24 [History] Magnesium(Unknown Dose) 1 tab PO DAILY 09/04/24 [History] Vitamin B Complex 1 cap PO HS 09/04/24 [History] Vitamin D3(Unknown Dose) 1 cap PO HS 09/04/24 [History] Follow up Appointment(s)/Referral(s): Thais Gupta MD [STAFF PHYSICIAN] - 1 Week (Clinic f/u scheduled on 09/14 11:00 CBC lab encounter monday 09/11. Staff will call to schedule ) Patient Instructions/Handouts: Intravenous Chemotherapy (GEN) Discharge Disposition: HOME SELF-CARE
[2024-09-09] MEDS ORDERED: LEVOTHYROXINE 50 MCG TAB PO SCH (06:30)
== END 2024-09-06 19:52 | disposition home or self-care (01) | DRG 847 ==
LOC: 5NMEDONC 11:08
PROVIDERS: ADMIT Internal Medicine; ATTEND Internal Medicine
DX: Z51.11 Encounter for antineoplastic chemotherapy (principal); C83.30 Diffuse large B-cell lymphoma, unspecified site; N17.9 Acute kidney failure, unspecified; Z94.84 Stem cells transplant status; N18.30 Chronic kidney disease, stage 3 unspecified; E78.5 Hyperlipidemia, unspecified; F41.9 Anxiety disorder, unspecified; Z92.21 Personal history of antineoplastic chemotherapy; K59.00 Constipation, unspecified; M19.90 Unspecified osteoarthritis, unspecified site; E83.52 Hypercalcemia; Z87.891 Personal history of nicotine dependence; Z88.0 Allergy status to penicillin; Z91.013 Allergy to seafood; Z88.1 Allergy status to other antibiotic agents; Z90.710 Acquired absence of both cervix and uterus; Z79.890 Hormone replacement therapy; Z90.49 Acquired absence of other specified parts of digestive tract
CPT/HCPCS: 80053; 81003; 84100; 84550; 85025

== ENCOUNTER → 2024-09-12 | Outpatient (CLI) | payer MEDICARE ==
--- NOTE | 2024-09-12 11:26 | MM ---
Reason for Exam: Additional evaluation requested from abnormal screening. Last screening mammogram was performed less than 1 month ago. Patient History: Menarche at age 15. First Full-Term at age 23. Hysterectomy at age 34. Maternal aunt had breast cancer, age 40. Paternal aunt had breast cancer. Risk Values: Kristy 5 year model risk: 1.6%. NCI Lifetime model risk: 4.1%. Prior Study Comparison: 07/23/2022 Bilateral MG 3D screening mammo w/cad, [place]. 08/12/2023 Bilateral MG 3D screening mammo w/cad, [place]. 08/31/2024 Bilateral MG 3D screening mammo w/cad, LOC[facility]IN [facility]. Tissue Density: Left: The breasts are heterogeneously dense, which may obscure small masses. Findings: Analyzed By CAD. Grouped calcifications left breast on CC view middle depth slightly lateral 4.5 cm the nipple. On MLO view these may be slightly superiorly anterior depth. Overall Assessment: Suspicious, BI-RAD 4 Management: Stereotactic Core Biopsy of the left breast. Results were given to the patient verbally at the time of exam. Patient should continue monthly self-breast exams. A clinical breast exam by your physician is recommended on an annual basis. This exam should not preclude additional follow-up of suspicious palpable abnormalities. Note on Kristy scores and lifetime risk: 1. A Kristy score greater than 3% is considered moderate risk. If this is the case, consider specialist referral to assess eligibility for a risk reducing agent. 2. If overall lifetime risk for the development of breast cancer is 20% or higher, the patient may qualify for future screening with alternating mammogram and breast MRI. [facility], , 09/12/2024 11:23 AM. Electronically signed and approved by: Prasanth Holland DO
== END | disposition home or self-care (01) ==
LOC: RADMAMWWP 10:57
PROVIDERS: ATTEND Family Medicine
DX: R92.8 Other abnormal and inconclusive findings on diagnostic imaging of breast (principal); R92.332 Mammographic heterogeneous density, left breast; Z80.3 Family history of malignant neoplasm of breast
CPT/HCPCS: 77065; G0279; 77061

== ENCOUNTER → 2024-10-05 | Outpatient (CLI) | payer MEDICARE ==
[2024-10-05 07:46] VITALS: BP 118/75; PULSE 89; RESP 16; TEMP 97.9
--- NOTE | 2024-10-05 08:24 | P.GSCN ---
History of Present Illness Consult date: 10/05/24 Reason for Consult: Calcifications of concern left breast Requesting physician: Austen Garcia History of present illness: Lauren is a 74-year-old female seen in consultation for Dr. Garcia regarding a radiographic abnormality in the left breast. She underwent a bilateral screening mammogram in 08-31-2024. This revealed heterogeneously dense breast and a loosely grouped calcification upper outer aspect left breast for which additional views were recommended. Additional views of the left breast were performed on 09-12-2024. This revealed grouped calcifications left breast on cc view middle depth slightly lateral 4.5 cm from the nipple these were felt to be suspicious BI-RADS 4 and stereotactic core biopsy was recommended. She has had bilateral breast reduction in the past. She has not had any biopsies of her breast. She does not feel any new lumps masses or nodules of concern in either breast. She is not complaining of any nipple discharge or skin changes. She has not had any recent trauma or infection in the breast. Patient has a port a cath in place she has a lymphoma diffuse large B cell, she is preparing for a stem cell transplant; she has finished chemotherapy 4 weeks ago Caffeine: diet coke 3/day nicotine: stopped smoking about 2007; used to smoke 1 1/2 PPD for 38 years chocolate: weekly hormones: none Family History: sister: cervical cancer mother: uterine and colon cancer paternal aunt: breast cancer Hormonal History: menarche: 15 , breast fed: yes, age at first : 23 menopause: partial hysterectomy at 32 so ? age Surgical History: Rotator cuff Thyroid Cholecystectomy Left knee surgery 2 Port-A-Cath placement right wrist joint cleaned out and fingers Dupuytren contracture Medical History: Diffuse large B-cell lymphoma diagnosed in 2020 and a relapse in 2023; getting chemotherapy in March in 2024, stopped in May and one more treatment 4 weeks ago 3 days in hospital; last saw Dr. Gupta last week and told good for the biopsy stage 3A kidney disease Social History: nicotine:as above alcohol: none drugs: none Review of Systems - Constitutional Reports sweats - EENT Eyes: denies blurred vision Ears: deny: decreased hearing Ears, nose, mouth and throat: Denies dysphagia - Breasts bilateral: as per HPI - Cardiovascular Denies chest pain, Denies shortness of breath - Respiratory Denies cough, Denies 7 - Gastrointestinal Reports constipation - Genitourinary Genitourinary: Denies dysuria, Denies hematuria Menstruation: Reports post hysterectomy - Musculoskeletal Reports as per HPI - Integumentary Reports pruritus - Neurological Denies headaches, Denies syncope - Psychiatric Reports anxiety, Reports depression - Endocrine Reports fatigue - Hematologic/Lymphatic Denies easy bleeding, Denies easy bruising - Allergic/Immunologic Reports seasonal allergies Past Medical History Past Medical History: Cancer, Hyperlipidemia, Osteoarthritis (OA), Renal Disease, Thyroid Disorder Additional Past Medical History / Comment(s): Diffuse large b cell lymphoma dx 11/2021 - chemo 18 months ago; 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 stage 3 kidney disease History of Any Multi-Drug Resistant Organisms: None Reported Past Surgical History: Cholecystectomy, Hysterectomy, Orthopedic Surgery Additional Past Surgical History / Comment(s): PARTIAL THYROIDECTOMY. LT ROTATOR CUFF REPAIRED. left knee arthroscopy. isis carpal tunnel surg Past Anesthesia/Blood Transfusion Reactions: No Reported Reaction, Motion Sickness Additional Past Anesthesia/Blood Transfusion Reaction / Comm: With last biopsy of tumor had PONV, thinks "may have been from Fentanyl, never had Fentanyl before." Past Psychological History: Anxiety Smoking Status: Former smoker Past Alcohol Use History: None Reported Additional Past Alcohol Use History / Comment(s): Quit smoking in 2007 Past Drug Use History: None Reported - Past Family History Mother Family Medical History: Pulmonary Embolus Mother Sister(s) Family Medical History: Cancer Medications and Allergies Home Medications Medication Instructions Recorded Confirmed Type Levothyroxine Sodium [Synthroid] 100 mcg PO MOTUWETHFR 09/07/14 10/05/24 History Spironolactone [Aldactone] 100 mg PO DAILY 12/11/21 10/05/24 History Venlafaxine HCl ER [Effexor XR] 150 mg PO HS 12/11/21 10/05/24 History Fish Oil(Unknown Dose) 1 cap PO HS 09/04/24 10/05/24 History Levothyroxine Sodium [Synthroid] 50 mcg PO SUSA 09/04/24 10/05/24 History Magnesium(Unknown Dose) 1 tab PO DAILY 09/04/24 10/05/24 History Vitamin B Complex 1 cap PO HS 09/04/24 10/05/24 History Vitamin D3(Unknown Dose) 1 cap PO HS 09/04/24 10/05/24 History Allergies Allergy/AdvReac Type Severity Reaction Status Date / Time Penicillins Allergy Unknown, + Verified 10/05/24 07:38 allergy testing as a child shrimp Allergy Rash/Hives Verified 10/05/24 07:38 around mouth erythromycin base AdvReac Diarrhea Verified 10/05/24 07:38 Surgical - Exam Vital Signs Temp Pulse Resp BP Pulse Ox 97.9 F 89 16 118/75 99 10/05/24 07:43 10/05/24 07:43 10/05/24 07:43 10/05/24 07:43 10/05/24 07:43 - General no distress - Eyes normal ocular movement - ENT no hearing loss - Neck trachea midline - Respiratory normal respiratory effort, clear to auscultation - Cardiovascular Rhythm: regular Heart Sounds: normal: S1, S2 - Abdomen Abdomen: soft, non tender, no guarding, no rigid, no rebound - Integumentary normal turgor - Neurologic no disoriented, no combative - Musculoskeletal normal gait - Psychiatric oriented to time, oriented to person, oriented to place, speech is normal, memory intact Breast Exam: BRA: 38C inspection: Bilateral well-healed scars from prior bilateral reduction mammoplasty, bilateral grade 2 ptosis Palpation: Right breast: Multi positional exam no dominant masses or nodules of concern Right axilla: No adenopathy of concern Left breast: Multi position of exam no dominant masses or nodules of concern Left axilla: No adenopathy of concern Port-A-Cath left chest wall Results Mammogram personally reviewed and interpreted, Microcalcifications of concern left breast CC view middle depth slightly lateral 4.5 cm from the nipple Assessment and Plan Assessment: Impression: Mammographic abnormality left breast/microcalcifications of concern Large cell lymphoma Plan: Left breast stereotactic core biopsy Risk and benefits of the procedure discussed with the patient. Risk include but are not limited to bleeding, infection, reaction to the anesthetic. If the tissue acquisition were felt to be discordant and further tissue acquisition may be necessary. The patient understands and wishes to proceed CC: Dr. Garcia
== END ==
LOC: WWCWWP 07:10
PROVIDERS: ATTEND Surgery
DX: C83.30 Diffuse large B-cell lymphoma, unspecified site (principal); R92.8 Other abnormal and inconclusive findings on diagnostic imaging of breast; Z88.0 Allergy status to penicillin; Z88.1 Allergy status to other antibiotic agents; Z91.013 Allergy to seafood; Z87.891 Personal history of nicotine dependence

== ENCOUNTER → 2024-10-05 | Day surgery (SDC) | payer MEDICARE ==
--- NOTE | 2024-10-23 14:28 | MM ---
Risk Values: Kristy 5 year model risk: 1.6%. NCI Lifetime model risk: 4.1%. Prior Study Comparison: 08/12/2023 Bilateral MG 3D screening mammo w/cad, [facility]. 08/31/2024 Bilateral MG 3D screening mammo w/cad, [facility]. 09/12/2024 Left MG 3D work up w/cad , [facility]. Pathology Description: Location: 12 o'clock. Marker Left Behind. Specimen Radiograph. Calcium Found: Yes Approach: CC FA Needle Type: Eviva Cores: 14 Skin Nicks: 1 Gauge: 9 The correct site was marked. A time out was performed. Following informed consent the patient was brought to the stereotactic core biopsy room. A plant packer film was obtained via an cc approach to identify the lesion in the left breast. The lesion is located at the upper mid position. The lesion was then targeted. The breast was prepped using Chlorhexidine. 20 cc of 1% lidocaine were used to anesthetize the area of concern. A 9 gauge vacuum-assisted core rotating biopsy needle was driven to the correct coordinates. A prefire film was obtained, needle was noted to be in the correct location.. The needle was driven to the correct coordinates. A post fire film was obtained. The needle was noted to be in the correct location . 14 core biopsies were obtained. A specimen radiograph was done. The specimen radiograph showed microcalcification of concern had been adequately sampled. The needle was removed leaving the sheath in place. A secure dylon clip was inserted into the biopsy cavity through the sheath. Pressure was applied at the biopsy site for hemostasis. Steri-Strips were applied to the access site. The specimens were sent to the laboratory for pathologic analysis. The patient tolerated the procedure in stable condition and will follow-up with Dr. Felipe. She was discharged in good condition with verbal and written instructions. Post procedure mammogram shows the clip to be in the correct location.. [facility], , 10/05/2024 3:06 PM. Pathology Results: Result: Benign, Fibrocystic change. Pathology and radiology were reviewed. Findings are concordant. LEFT BREAST, STEREOTACTIC NEEDLE CORE BIOPSY: Benign breast with fibrocystic changes including calcifications. Overall Assessment: Benign Management: Diagnostic Mammogram of the left breast in 6 months. Electronically signed and approved by: Johanny Cortes M.D.
== END ==
LOC: RADMAMWWP 07:11
PROVIDERS: ATTEND Surgery
DX: N60.12 Diffuse cystic mastopathy of left breast (principal)
CPT/HCPCS: 88305

== ENCOUNTER → 2024-10-13 | Outpatient (CLI) | payer MEDICARE ==
[2024-10-13 10:56] VITALS: BP 109/64; PULSE 101; RESP 16; TEMP 97.4
--- NOTE | 2024-10-13 11:21 | P.PN ---
Subjective Progress Note Date: 10/13/24 Lauren is a 74-year-old female seen in consultation for Dr. Garcia regarding a radiographic abnormality in the left breast. She underwent a bilateral screening mammogram in 08-31-2024. This revealed heterogeneously dense breast and a loosely grouped calcification upper outer aspect left breast for which additional views were recommended. Additional views of the left breast were performed on 09-12-2024. This revealed grouped calcifications left breast on cc view middle depth slightly lateral 4.5 cm from the nipple these were felt to be suspicious BI-RADS 4 and stereotactic core biopsy was recommended. She has had bilateral breast reduction in the past. She has not had any biopsies of her jeff ast. She does not feel any new lumps masses or nodules of concern in either breast. She is not complaining of any nipple discharge or skin changes. She has not had any recent trauma or infection in the breast. Patient has a port a cath in place she has a lymphoma diffuse large B cell, she is preparing for a stem cell transplant; she has finished chemotherapy 4 weeks ago 10-05-24 Lauren on 10-05-2024 underwent a stereotactic core biopsy of the left breast. This was benign breast with fibrocystic changes including calcifications. She tolerated the procedure without difficulty. She is in the process of having a stem cell transplant, she had stem cell harvest done two days ago. Caffeine: diet coke 3/day nicotine: stopped smoking about 2007; used to smoke 1 1/2 PPD for 38 years chocolate: weekly hormones: none Family History: sister: cervical cancer mother: uterine and colon cancer paternal aunt: breast cancer Hormonal History: menarche: 15 , breast fed: yes, age at first : 23 menopause: partial hysterectomy at 32 so ? age Surgical History: Rotator cuff Thyroid Cholecystectomy Left knee surgery 2 Port-A-Cath placement right wrist joint cleaned out and fingers Dupuytren contracture Medical History: Diffuse large B-cell lymphoma diagnosed in 2020 and a relapse in 2023; getting chemotherapy in March in 2024, stopped in May and one more treatment 4 weeks ago 3 days in hospital; last saw Dr. Gupta last week and told good for the biopsy stage 3A kidney disease Social History: nicotine:as above alcohol: none drugs: none Review of Systems - Constitutional Reports sweats - EENT Eyes: denies blurred vision Ears: deny: decreased hearing Ears, nose, mouth and throat: Denies dysphagia - Breasts bilateral: as per HPI - Cardiovascular Denies chest pain, Denies shortness of breath - Respiratory Denies cough - Gastrointestinal Reports constipation - Genitourinary Genitourinary: Denies dysuria, Denies hematuria Menstruation: Reports post hysterectomy - Musculoskeletal Reports as per HPI - Integumentary Reports pruritus - Neurological Denies headaches, Denies syncope - Psychiatric Reports anxiety, Reports depression - Endocrine Reports fatigue - Hematologic/Lymphatic Denies easy bleeding, Denies easy bruising - Allergic/Immunologic Reports seasonal allergies Past Medical History Past Medical History: Cancer, Hyperlipidemia, Osteoarthritis (OA), Renal Disease, Thyroid Disorder Additional Past Medical History / Comment(s): Diffuse large b cell lymphoma dx 11/2021 - chemo 18 months ago; 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 stage 3 kidney disease History of Any Multi-Drug Resistant Organisms: None Reported Past Surgical History: Cholecystectomy, Hysterectomy, Orthopedic Surgery Additional Past Surgical History / Comment(s): PARTIAL THYROIDECTOMY. LT ROTATOR CUFF REPAIRED. left knee arthroscopy. isis carpal tunnel surg Past Anesthesia/Blood Transfusion Reactions: No Reported Reaction, Motion Sickness Additional Past Anesthesia/Blood Transfusion Reaction / Comm: With last biopsy of tumor had PONV, thinks "may have been from Fentanyl, never had Fentanyl before." Past Psychological History: Anxiety Smoking Status: Former smoker Past Alcohol Use History: None Reported Additional Past Alcohol Use History / Comment(s): Quit smoking in 2007 Past Drug Use History: None Reported - Past Family History Mother Family Medical History: Pulmonary Embolus Mother Sister(s) Family Medical History: Cancer Medications and Allergies Home Medications Medication Instructions Recorded Confirmed Type Levothyroxine Sodium [Synthroid] 100 mcg PO MOTUWETHFR 09/07/14 10/05/24 History Spironolactone [Aldactone] 100 mg PO DAILY 12/11/21 10/05/24 History Venlafaxine HCl ER [Effexor XR] 150 mg PO HS 12/11/21 10/05/24 History Fish Oil(Unknown Dose) 1 cap PO HS 09/04/24 10/05/24 History Levothyroxine Sodium [Synthroid] 50 mcg PO SUSA 09/04/24 10/05/24 History Magnesium(Unknown Dose) 1 tab PO DAILY 09/04/24 10/05/24 History Vitamin B Complex 1 cap PO HS 09/04/24 10/05/24 History Vitamin D3(Unknown Dose) 1 cap PO HS 09/04/24 10/05/24 History Allergies Allergy/AdvReac Type Severity Reaction Status Date / Time Penicillins Allergy Unknown, + Verified 10/05/24 07:38 allergy testing as a child shrimp Allergy Rash/Hives Verified 10/05/24 07:38 around mouth erythromycin base AdvReac Diarrhea Verified 10/05/24 07:38 Objective - Vital Signs Vital signs: Vital Signs Temp 97.4 F L 10/13/24 10:54 Pulse 101 H 10/13/24 10:54 Resp 16 10/13/24 10:54 BP 109/64 10/13/24 10:54 Pulse Ox 97 10/13/24 10:54 FiO2 Intake & Output 10/12/24 10/13/24 10/13/24 18:59 06:59 18:59 Weight 72.575 kg - Constitutional General appearance: Present: cooperative - EENT Eyes: Present: EOMI ENT: Present: hearing grossly normal - Neck Neck: Present: normal ROM - Respiratory Respiratory: bilateral: CTA - Cardiovascular Rhythm: regular Heart sounds: normal: S1, S2 - Integumentary Integumentary Comment(s): Stereotactic biopsy site left breast clean and dry no evidence of infection or hematoma - Psychiatric Psychiatric: Present: A&O x's 3, appropriate affect, intact judgment & insight - Additional findings Additional findings: Breast Exam: from 10-05-24 BRA: 38C inspection: Bilateral well-healed scars from prior bilateral reduction mammoplasty, bilateral grade 2 ptosis Palpation: Right breast: Multi positional exam no dominant masses or nodules of concern Right axilla: No adenopathy of concern Left breast: Multi position of exam no dominant masses or nodules of concern; Left axilla: No adenopathy of concern Port-A-Cath left chest wall Assessment and Plan Assessment: Impression: Large cell lymphoma Stereo biopsy left breast done on 10-05-2024 benign breast with fibrocystic changes including calcifications. REport from radiology pending. Plan: Left breast stereotactic core biopsy done on 10-05-24, concordance report pending If concordance confirmed with radiology we will repeat left breast mammogram in 6 months with appointment at that time. If concordance not confirmed further recommendation to follow. CC: Dr. Garcia
== END ==
LOC: WWCWWP 10:43
PROVIDERS: ATTEND Surgery
DX: C83.30 Diffuse large B-cell lymphoma, unspecified site (principal); N60.19 Diffuse cystic mastopathy of unspecified breast; Z88.0 Allergy status to penicillin; Z88.1 Allergy status to other antibiotic agents; Z91.013 Allergy to seafood; Z87.891 Personal history of nicotine dependence